=== PATIENT | male | born 1955 | race Caucasian/White ===

== ENCOUNTER 2017-03-03 12:35 | Inpatient (IN) | payer OTHER ==
--- NOTE | 2017-03-03 14:37 | EDPHY ---
H & P Stated Complaint: pathological c3 unstable fx Time Seen by Provider: 03/03/17 13:15 HPI/ROS: CHIEF COMPLAINT: Neck pain, history of metastatic melanoma HISTORY OF PRESENT ILLNESS: The patient presents to the ED with neck pain and a reported history of a fracture diagnosed on MRI earlier today involving his C3 vertebrae. The patient was recently diagnosed with malignant metastatic melanoma. The patient is currently beginning oral chemotherapy with [facility]. Approximately 5 days ago, the patient developed acute atraumatic pain in his neck. He denies associated numbness or weakness. The patient was evaluated at an outpatient imaging center today and reportedly had an MRI which demonstrated a pathologic fracture of C3. He presents to the ED for further evaluation. The patient reports that he has been quite healthy prior to his recent diagnosis of metastatic melanoma. The patient denies any history of trauma. The patient denies bowel or bladder dysfunction. He has no history of gait instability. The patient reports the pain in his neck is moderate in nature. REVIEW OF SYSTEMS: A comprehensive 10 point review of systems is otherwise negative aside from elements mentioned in the history of present illness. Source: Patient - Personal History Current Tetanus/Diphtheria Vaccine: Yes - Medical/Surgical History Hx Asthma: No Hx Chronic Respiratory Disease: No Hx Diabetes: No Hx Cardiac Disease: No Hx Renal Disease: No Hx Cirrhosis: No Hx Alcoholism: No Hx HIV/AIDS: No Hx Splenectomy or Spleen Trauma: No Other PMH: metastatic melanoma - Social History Smoking Status: Former smoker - Physical Exam Exam: General Appearance: Alert, no distress Eyes: Pupils equal and round no pallor or injection ENT, Mouth: Mucous membranes moist Respiratory: There are no retractions, lungs are clear to auscultation Cardiovascular: Regular rate and rhythm Gastrointestinal: Abdomen is soft and nontender, no masses, bowel sounds normal Neurological: A&O, normal motor function, normal sensory exam, normal cranial nerves Skin: Warm and dry, no rashes Musculoskeletal: Neck is supple nontender Extremities: symmetrical, full range of motion Constitutional: Initial Vital Signs Temperature (C) 36.8 C 03/03/17 12:45 Heart Rate 90 03/03/17 12:45 Respiratory Rate 18 03/03/17 12:45 Blood Pressure 105/92 H 03/03/17 12:45 O2 Sat (%) 97 03/03/17 12:45 O2 Delivery Mode Room Air Allergies/Adverse Reactions: No Known Allergies Allergy (Verified 03/03/17 15:03) Home Medications: Medication Instructions Recorded Acetaminophen [Tylenol ES 500 mg 1,000 mg PO Q6 PRN 03/03/17 (*)] Dabrafenib Mesylate [Tafinlar] 150 mg PO Q12H 03/03/17 Fentanyl 12.5 mcg TD Q72H 03/03/17 Fentanyl 37.5 37.5 mcg TD Q72H 03/03/17 Finasteride [Proscar 5 MG (*)] 5 mg PO DAILY 03/03/17 Gabapentin 600 mg PO TID 03/03/17 Mekinist 1 cap PO HS 03/03/17 Prochlorperazine Maleate 10 mg PO Q6H PRN 03/03/17 [Compazine 10mg (*)] diphenhydrAMINE [Benadryl 50 MG 50 mg PO HS 03/03/17 (*)] oxyCODONE IR [Oxycodone Ir (*)] 10 mg PO Q3-4PRN PRN 03/03/17 Medical Decision Making ED Course/Re-evaluation: I reviewed the results of the patient's MRI which demonstrate a pathologic fracture of C3. The patient is noted to be neurologically intact. The patient was placed in a cervical spine immobilization device immediately upon arrival to the ED. Consultation was made with Neurosurgery. The patient will be admitted to the hospital for further evaluation and management. The patient was seen by Dr. Senthil Goel in the emergency department at 3: 00 p.m.. Differential Diagnosis: Differential diagnosis considered includes pathologic fracture, spinal cord injury, worsening metastatic disease Departure - Departure Disposition: [facility] Inpatient Acute Clinical Impression: Metastatic melanoma Pathologic cervical vertebral fracture Qualifiers: Encounter type: initial encounter Qualified Code(s): M84.48XA - Pathological fracture, other site, initial encounter for fracture Condition: Fair
[2017-03-03] MEDS ORDERED: ONDANSETRON 4 MG/2 ML VIAL IVP PRN (15:27)
[2017-03-03] MEDS ORDERED: ONDANSETRON DISINTEGRATING 4 MG TAB PO PRN (15:27)
[2017-03-03] MEDS ORDERED: ACETAMINOPHEN 325 MG TAB PO PRN (15:27)
[2017-03-03] MEDS ORDERED: NS 1,000 ML IV SCH (15:30)
[2017-03-03] MEDS: HYDROCODONE/APAP 5/325 TAB PO PRN (15:41)
[2017-03-03] MEDS ORDERED: FENTANYL TD SCH (15:45)
[2017-03-03] MEDS ORDERED: DABRAFENIB MESYLATE 75 MG PO SCH (15:45)
[2017-03-03] MEDS: GABAPENTIN 300 MG CAP PO SCH ×2 (17:19→21:01)
--- NOTE | 2017-03-03 17:29 | GHP ---
[f rep st] HISTORY AND PHYSICAL DATE OF ADMISSION: 03/03/2017 CHIEF COMPLAINT: Neck pain. HISTORY OF PRESENT ILLNESS: Mr. Gonzales is a pleasant 61-year-old gentleman who presented to [facility] Emergency Department due to severe pain and evidence of a C3 fracture on recent imaging studies. The patient was contacted by Dr. Bobby, who is covering for Dr. Avery, his oncolog ist, when Dr. Bobby was informed of the MRI findings, which was ordered by Dr. Avery. The patient w as instructed to proceed to the emergency department, where he was seen by Dr. Goel today a t approximately 3 p.m. Currently, the patient is reporting intermittent episodes of severe sharp neck pain that occurs with certain movements. The patient states that in October of this year, he developed a cough which did not improve. He follo wed up with his primary care physician in [place] on November 29, also with pain and numbness in his left hip at approximately the iliac crest. The patient was initially treated with gabapentin an d other medications, with no significant improvement of his symptoms. He was then seen again by ot er physicians, including Dermatology, to discuss skin lumps 1st noticed on his right deltoid and rig ht posterior shoulder region. Ultimately, the patient underwent biopsy of these lesions which demon strated cancer cells, and the patient was referred to Oncology, where he underwent further imaging s tudies including CT of the chest, abdomen, and pelvis which demonstrated multiple diffuse lesions co nsistent with multiple myeloma. The patient was complaining of severe neck pain recently, and an MR I of the cervical spine was ordered by Dr. Avery, which revealed probable C3 pathologic fracture. Currently, the patient is neurologically intact. He denies any neck pain, arm pain, weakness, tingl ing, bowel or bladder incontinence, or difficulty with piano mover strength or balance. The patient has been diagnosed with stage IV melanoma and has started oral chemotherapy under the di rection of Dr. Avery. ALLERGIES: No known drug allergies. CURRENT MEDICATIONS: 1. Tylenol 500 mg 2 tabs p.o. q.6 hours p.r.n. 2. Tafinlar 150 mg p.o. q.12. 3. Fentanyl 12.5 mcg transdermal patch q.72 hours. 4. Fentanyl 37.5 mcg transdermal patch q.72 hours. 5. Proscar 5 mg p.o. daily. 6. Gabapentin 600 mg 3 times daily. 7. Mekinist 1 cap p.o. at bedtime. 8. Compazine 10 mg 1 tab p.o. q.6 hours p.r.n. 9. Benadryl 50 mg p.o. at bedtime. 10. OxyIR 10 mg p.o. q.3-4 hours p.r.n. pain. PHYSICAL EXAM: GENERAL: Pleasant, healthy-appearing 61-year-old male in no apparent distress. HEA D, EYES, EARS, NOSE AND THROAT: Within normal limits. EXTREMITIES: Within normal limits. He is w earing a hard Aurora cervical collar. He has mild superior axial neck tenderness to deep palp ation. His extremities are within normal limits. NEUROLOGIC: The patient is awake, alert, and raman ented x4. Cranial nerves 2-12 are intact to gross examination. Speech is fluent. Tongue is midlin e. Spinal accessory muscles are intact. He has equal and symmetric strength of the bilateral upper and lower extremities in all muscle groups, with sensation intact to light touch in all dermatomal distributions of the bilateral upper and lower extremities. There is no Dominguez sign and no clonus. Reflexes are 1/4 at bilateral biceps, brachial radialis, and patellar tendons. PAST MEDICAL HISTORY: Left leg fracture in 2015. PAST SURGICAL HISTORY: No surgeries. SOCIAL HISTORY: The patient is single but has a domestic partner. He quit smoking 5 years ago. He drinks alcohol approximately once a month. REVIEW OF SYSTEMS: Negative, other than what is mentioned in the HPI. DATA REVIEW: MRI of the cervical spine demonstrates a C3 fracture. This contributes to moderate to severe central canal stenosis at the C2 level. There is no gliosis in the cord. There is mild to moderate degenerative disk disease at C5-6 and C6-7, with Modic changes of the endplates and mild to moderate central canal stenosis at C5-6, with moderate to severe bilateral neural foraminal stenosi s at C5-6, and mild central canal stenosis at C6-7, with mild bilateral neural foraminal stenosis bi laterally at C6-7. IMPRESSION: This is a 61-year-old male with recently diagnosed stage IV metastatic melanoma and a C 3 pathologic compression fracture causing moderate to severe central canal stenosis. Currently, the patient is neurologically intact, with intermittent episodes of severe neck pain. PLAN: All the above issues were discussed with the patient in detail today with Dr. Amando donahue t approximately 3 p.m. At this time, we recommend the patient be maintained in a hard cervical tariq ar. He may have a regular diet now, but will be made n.p.o. after midnight, with plans for him to u [facility] surgery tomorrow afternoon with Dr. Goel. The surgery would include a C3 anterior c orpectomy and a C2-4 anterior cervical fusion, followed by a C2-4 posterior instrumentation and fusi on. /[id number]/MODL
[2017-03-03 18:23] LABS: ALANINE AMINOTRANSFERASE 39 IU/L (21-72); ALBUMIN 3.5 g/dL (3.5-5.0); ALKALINE PHOSPHATASE 155 IU/L (38-126); ANION GAP 10 mEq/L (8-16); ASPARTATE AMINOTRANSFERASE 22 IU/L (17-59); BILIRUBIN,TOTAL 0.4 mg/dL (0.1-1.4); CALCIUM 8.5 mg/dL (8.5-10.4); CARBON DIOXIDE 21 mEq/l (22-31); CHLORIDE 104 mEq/L (97-110); CREATININE 0.9 mg/dL (0.7-1.3); GLOMERULAR FILTRATION RATE > 60; GLUCOSE 97 mg/dL (70-100); POTASSIUM 4.8 mEq/L (3.5-5.2); SODIUM 135 mEq/L (134-144); TOTAL PROTEIN 6.5 g/dL (6.3-8.2)
[2017-03-03] MEDS: OXYCODONE/APAP 5/325 TAB PO PRN (20:46)
[2017-03-03] MEDS ORDERED: MEKINIST PO SCH (21:00)
[2017-03-03] MEDS: diphenhydrAMINE 25 MG CAP PO PRN (21:01)
[2017-03-03] MEDS: TRAMETINIB DIMETHYL SULFOXIDE 2 MG PO SCH (22:39)
[2017-03-03] MEDS: DABRAFENIB MESYLATE 75 MG PO SCH (22:41)
[2017-03-04] MEDS: OXYCODONE/APAP 5/325 TAB PO PRN ×4 (00:48→21:41)
[2017-03-04 07:05] LABS: HEMATOCRIT 31.7 % (40.0-51.0); HEMOGLOBIN 10.4 g/dL (13.7-17.5); MEAN CELL HEMOGLOBIN 28.8 pg (27.9-34.1); MEAN CELL HEMOGLOBIN CONCENTR. 32.8 g/dL (32.4-36.7); MEAN CELL VOLUME 87.8 fL (81.5-99.8); RED BLOOD CELL COUNT 3.61 10^6/uL (4.40-6.38); RED CELL DISTRIBUTION WIDTH 13.9 % (11.5-15.2)
[2017-03-04 07:13] LABS: INR 1.13 (0.83-1.16); PROTIME(PATIENT) 14.4 SEC (12.0-15.0)
--- NOTE | 2017-03-04 07:33 | PDHPUP ---
History & Physical Update H&P update statement: This history and physical update is based on an assessment of the patient which was completed after admission or registration (within 24 hours), but prior to the surgery/procedure. H&P update: H&P reviewed & patient examined, no change in patient's condition since H&P completed
--- NOTE | 2017-03-04 07:38 | SOAPPROG ---
SOAP Progress Note Assessment/Plan: Assessment: 61 yo M with C3 pathological fracture Plan: neuro: stable to OR this afternoon for C3 corpectomy, C2-4 anterior/posterior fusion npo please call with neuro changes keep hard collar on at all times 03/04/17 07:37 Subjective: + neck pain, no arm pain, no weakness. Objective: Vital Signs Temp Pulse Resp BP Pulse Ox 36.6 C 75 15 148/89 H 94 03/04/17 04:00 03/04/17 04:00 03/04/17 04:00 03/04/17 04:00 03/04/17 04:00 Laboratory Results 03/04/17 06:40 03/03/17 17:36 03/03/17 03/04/17 03/05/17 05:59 05:59 05:59 Intake Total 500 Output Total 400 Balance 100 PT 14.4 SEC (12.0-15.0) 03/04/17 06:40 INR 1.13 (0.83-1.16) 03/04/17 06:40 AAOx4, +FC PERRL, no facial droop 5/5 + light touch ICD10 Worksheet Patient Problems: Problems Problem Status Onset Metastatic melanoma Acute Pathologic cervical vertebral fracture Acute
[2017-03-04] MEDS: GABAPENTIN 300 MG CAP PO SCH ×3 (08:33→21:19)
[2017-03-04] MEDS ORDERED: FINASTERIDE 5 MG TAB PO SCH (09:00)
--- NOTE | 2017-03-04 09:08 | CPEKG ---
Heart Rate: 82 RR Interval: 732 P-R Interval: 176 QRSD Interval: 82 QT Interval: 360 QTC Interval: 421 P [place]: 56 QRS [place]: 14 T Wave [place]: 41 EKG Severity - OTHERWISE NORMAL ECG - EKG Impression: SINUS RHYTHM EKG Impression: LOW VOLTAGE IN FRONTAL LEADS EKG Impression: Some artifact EKG Impression: Possible left atrial abnormality EKG Impression: Agree with above Electronically Signed By: Jesus Ramirez 04-Mar-2017 16:13:53
[2017-03-04] MEDS: DABRAFENIB MESYLATE 75 MG PO SCH (10:26)
[2017-03-04] MEDS ORDERED: ceFAZolin 2 GM/DEXTROSE 100 ML IV ONE (11:00)
[2017-03-04] MEDS ORDERED: THROMBIN (BOVINE) 20,000 UNIT VIAL TP ONE (11:05)
[2017-03-04] MEDS ORDERED: BUPIVACAINE/EPI 0.25% 30 ML SDV ONE ×2 (11:05→12:21)
[2017-03-04] MEDS ORDERED: BACITRACIN 50,000 UNITS/10 ML SYR IRR ONE ×2 (11:05→11:06)
[2017-03-04] MEDS ORDERED: LR 1,000 ML IV ONE (11:44)
--- NOTE | 2017-03-04 11:48 | PDANEPAE ---
ANE History of Present Illness C3 Corpectomy, Anterior and posterior fusion ANE Past Medical History - Cardiovascular History Hx Hypertension: No Hx Arrhythmias: No Hx Chest Pain: No Hx Coronary Artery / Peripheral Vascular Disease: No Hx CHF / Valvular Disease: No Hx Palpitations: No - Pulmonary History Hx COPD: No Hx Asthma/Reactive Airway Disease: No Hx Recent Upper Respiratory Infection: No Hx Oxygen in Use at Home: No Hx Sleep Apnea: No Sleep Apnea Screening Result - Last Documented: Positive - Endocrine History Hx Diabetes: No Hypothyroid: No Hyperthyroid: No Obesity: no - Cancer History Hx Cancer: Yes Cancer History Comment: Melanoma witjh distant mets - Chronic Pain History Chronic Pain: Yes ANE Review of Systems - Exercise capacity Exercise capacity: limited by disability ANE Patient History - Allergies Allergies/Adverse Reactions: No Known Allergies Allergy (Verified 03/03/17 15:03) - Home Medications Home Medications: Acetaminophen [Tylenol ES 500 mg (*)] 1,000 mg PO Q6 PRN 03/03/17 [Last Taken 09:00 1000MG] Dabrafenib Mesylate [Tafinlar] 150 mg PO Q12H 03/03/17 [Last Taken 03/03/17 150mg] Fentanyl 12.5 mcg TD Q72H 03/03/17 [Last Taken 03/02/17] Fentanyl 37.5 37.5 mcg TD Q72H 03/03/17 [Last Taken 03/02/17] Finasteride [Proscar 5 MG (*)] 5 mg PO DAILY 03/03/17 [Last Taken 03/03/17] Gabapentin 600 mg PO TID 03/03/17 [Last Taken 03/03/17 1 tab] Prochlorperazine Maleate [Compazine 10mg (*)] 10 mg PO Q6H PRN 03/03/17 [Last Taken 03/03/17 1 TB] Trametinib Dimethyl Sulfoxide [Mekinist] 2 mg PO DAILY@2230 03/03/17 [Last Taken 03/02/17 1 cap] diphenhydrAMINE [Benadryl 50 MG (*)] 50 mg PO HS 03/03/17 [Last Taken 03/02/17] oxyCODONE IR [Oxycodone Ir (*)] 10 mg PO Q3-4PRN PRN 03/03/17 [Last Taken 09:00 20mg] - NPO status NPO Since - Liquids (Date): 03/04/17 NPO Since - Liquids (Time): 00:00 NPO Since - Solids (Date): 03/04/17 NPO Since - Solids (Time): 00:00 - Anes Hx Anes Hx: no prior problems - Smoking Hx Smoking Status: Former smoker - Alcohol Use Alcohol Use: Rarely - Family Anes Hx Family Anes Hx: none ANE Labs/Vital Signs - Labs Result Diagrams: 03/04/17 06:40 03/03/17 17:36 - Vital Signs Blood Pressure: 142/84 Heart Rate: 83 Respiratory Rate: 16 O2 Sat (%): 95 Height: 175.26 cm Weight: 70.307 kg ANE Physical Exam - Airway Neck exam: decreased ROM, C-collar in place Mallampati Score: Class 2 Mouth exam: normal dental/mouth exam - Pulmonary Pulmonary: no respiratory distress - Cardiovascular Cardiovascular: regular rate and rhythym, no murmur, rub, or gallop - ASA Status ASA Status: III ANE Anesthesia Plan Anesthesia Plan: general endotracheal anesthesia Specialized Airway: video laryngoscope
[2017-03-04] MEDS ORDERED: MIDAZOLAM 2 MG/2 ML VIAL IVP ONE (11:50)
[2017-03-04] MEDS ORDERED: PROPOFOL 200 MG/20 ML VIAL ONE (11:57)
[2017-03-04] MEDS ORDERED: fentaNYL 100 MCG/2 ML INJ ONE ×6 (11:57→17:43)
[2017-03-04] MEDS ORDERED: PROPOFOL/EMULSION 500 MG/50 ML BOTTLE IV ONE ×3 (11:59→14:59)
[2017-03-04] MEDS ORDERED: BUPIVACAINE 0.25% 30 ML SDV ONE (12:21)
[2017-03-04] MEDS ORDERED: TRANEXAMIC ACID 700 MG in NS 100 ML IV ONE (12:37)
[2017-03-04] MEDS ORDERED: KETAMINE 100 MG/10 ML SYR ONE (13:10)
[2017-03-04] MEDS ORDERED: GLYCOPYRROLATE 0.2 MG/1 ML VIAL ONE (13:17)
[2017-03-04] MEDS ORDERED: DEXAMETHASONE 4 MG/ML VIAL ONE ×3 (13:17)
[2017-03-04] MEDS ORDERED: SUCCINYLCHOLINE CHLORIDE*ANESTHESIA ONLY*200 MG/10 ML SYR IVP ONE (13:17)
[2017-03-04] MEDS ORDERED: ROCURONIUM 50 MG/5 ML VIAL ONE (13:17)
[2017-03-04] MEDS ORDERED: LIDOCAINE 2% 5 ML SDV ONE (13:21)
[2017-03-04] MEDS ORDERED: HYDROmorphONE/DILAUDID 2 MG/ML INJ ONE (13:23)
[2017-03-04] MEDS ORDERED: ceFAZolin 1 GM VIAL ONE (16:14)
[2017-03-04] MEDS ORDERED: METHOCARBAMOL 750 MG TAB PO PRN (17:39)
[2017-03-04] MEDS ORDERED: BISACODYL 10 MG SUPP PR PRN (17:39)
[2017-03-04] MEDS ORDERED: MAGNESIUM HYDROXIDE 30 ML UDCUP PO PRN (17:39)
[2017-03-04] MEDS ORDERED: NALOXONE HCL 0.4 MG/ML INJ IVP PRN (17:39)
[2017-03-04] MEDS ORDERED: LACTULOSE 20 GM/30 ML UDCUP PO PRN (17:39)
[2017-03-04] MEDS ORDERED: HYDROmorphONE/DILAUDID 6 MG/30 ML PCA IV PRN (17:39)
[2017-03-04] MEDS ORDERED: oxyCODONE IR 5 MG TAB PO PRN (17:39)
--- NOTE | 2017-03-04 17:46 | SOAPPROG ---
CORWIN Progress Note Assessment/Plan: Assessment: 61 yo M w/ C3 pathological fracture, sp C3 corpectomy with C2-4 anterior/posterior fusion Plan: neuro: stable KEL x2 [place] ira J or phili collar at all times x-rays tomorrow please call with neuro changes 03/04/17 07:37 03/04/17 17:44 Subjective: + neck pain, no arm pain. Objective: Vital Signs Temp Pulse Resp BP Pulse Ox 36.9 C 83 16 142/84 H 95 03/04/17 08:03 03/04/17 11:49 03/04/17 11:49 03/04/17 11:49 03/04/17 11:49 Laboratory Results 03/04/17 06:40 03/03/17 17:36 03/03/17 03/04/17 03/05/17 05:59 05:59 05:59 Intake Total 500 Output Total 400 Balance 100 PT 14.4 SEC (12.0-15.0) 03/04/17 06:40 INR 1.13 (0.83-1.16) 03/04/17 06:40 somnolent PERRL, EOMI, no facial droop 5/5 + light touch ICD10 Worksheet Patient Problems: Problems Problem Status Onset Metastatic melanoma Acute Pathologic cervical vertebral fracture Acute
[2017-03-04] MEDS ORDERED: HYDROmorphONE/DILAUDID 1 MG/ML SYR ONE (17:58)
[2017-03-04] MEDS ORDERED: DIAZEPAM 10 MG/2 ML SYR ONE (17:58)
[2017-03-04] MEDS ORDERED: fentaNYL 100 MCG/2 ML INJ IVP PRN (17:59)
[2017-03-04] MEDS ORDERED: PROMETHAZINE HCL 25 MG/ML INJ IVP PRN (17:59)
[2017-03-04] MEDS: HYDROmorphONE/DILAUDID 1 MG/ML SYR IVP PRN ×3 (18:00→18:23)
[2017-03-04] MEDS ORDERED: DIAZEPAM 10 MG/2 ML SYR IVP PRN (18:02)
[2017-03-04] MEDS ORDERED: FAMOTIDINE 20 MG TAB PO SCH (21:00)
[2017-03-04] MEDS: ceFAZolin 2 GM/DEXTROSE 100 ML IV SCH (21:19)
[2017-03-04] MEDS: FINASTERIDE 5 MG TAB PO SCH (21:19)
[2017-03-04] MEDS: SENNOSIDES/DOCUSATE SODIUM TAB PO SCH (21:49)
[2017-03-05] MEDS: POLYETHYLENE GLYCOL 3350 17 GM PKT PO SCH ×4 (00:26→21:51)
[2017-03-05] MEDS: DABRAFENIB MESYLATE 75 MG PO SCH ×3 (00:29→22:33)
[2017-03-05] MEDS: TRAMETINIB DIMETHYL SULFOXIDE 2 MG PO SCH ×2 (00:32→22:35)
[2017-03-05] MEDS: diphenhydrAMINE 25 MG CAP PO PRN ×2 (02:12→23:34)
[2017-03-05] MEDS: OXYCODONE/APAP 5/325 TAB PO PRN ×5 (02:14→19:34)
--- NOTE | 2017-03-05 03:33 | GOP ---
[f rep st] OPERATIVE REPORT DATE OF OPERATION: 03/04/2017 SURGEON: Senthil Goel MD PACKER FUSER: MARY Romero. ANESTHESIA: General endotracheal. PREOPERATIVE DIAGNOSIS: Unstable C3 pathologic compression fracture with retropulsion of bone into the canal, and spinal stenosis. Intractable pain. POSTOPERATIVE DIAGNOSIS: Unstable C3 pathologic compression fracture with retropulsion of bone into the canal, and spinal stenosis. Intractable pain. PROCEDURE PERFORMED: 1. C2-3 and C3-4 anterior cervical diskectomy, with C3 complete corpectomy for removal of tumor/unstable vertebral body fracture. 2. Placement of a structural PEEK interbody spacer from C2 to C4. 3. Placement of an LnK CastleLoc-P, 41 mm anterior cervical plate and screws from C2 to C4. 4. Use of intraoperative microscopy and fluoroscopy. FINDINGS: ESTIMATED BLOOD LOSS: 150 cc. INDICATIONS: The patient is a 61-year-old male with a history of stage IV metastatic melanoma and a pathologic fracture at C3 with retropulsion of bone and an unstable situation. The patient has associated pain and presents now for decompression/resection and removal with stabilization anteriorly and posteriorly. DESCRIPTION OF PROCEDURE: After informed consent was obtained, the patient was taken to the operating room and placed in supine position with the head in the Halter retractor system. The anterior cervical region was prepped and draped in sterile fashion. After fluoroscopic localization of the correct level, the subcutaneous and intramuscular tissues were infiltrated with local anesthesia. A horizontal linear incision was then created at the level of the C4 vertebral body. This was carried through the platysmal layer using monopolar electrocautery and carried in the avascular plane between the sternocleidomastoid and the carotid sheath laterally, and the strap muscles, trachea, and esophagus medially down to the prevertebral fascia, which was carefully incised with Metzenbaum scissors. The C2-3 and C3-4 interspaces were very carefully and meticulously dissected out and in doing so, there was bone already falling out of C3 without even attempting to remove it. There was a gaping hole in the vertebral body, consistent with the preoperative radiographic findings. After further dissection and placement of the minimally invasive Shadowline retractor, distraction pins were inserted at C2 and C4, and complete diskectomies were performed at C2-3 and C3-4 with subsequent removal of the entire vertebral body at C3. There was quite a bit of epidural bleeding that was controlled with meticulous dissection and bipolar electrocauterization along with Gelfoam soaked in thrombin, which was then removed. Following this, the remaining endplates were carefully prepared and an appropriately sized 28 mm structural PEEK interbody cage from [employer] was packed with demineralized bone matrix and placed in the interspace under fluoroscopic image guidance. The distraction was removed and an appropriately sized 41 mm CastleLoc-P, LnK anterior cervical plate was then placed and secured with self-drilling screws. Following re-verification of good position of the plate, screws and interbody spacers, the wound was copiously irrigated and closed in a layered fashion using interrupted Vicryl sutures followed by Steri-Strips on the skin. COMPLICATIONS: None. DISPOSITION: The patient remained intubated and is in the process of being repositioned for the posterior portion of the operation. /[id number]/MODL MTDD
--- NOTE | 2017-03-05 03:43 | GOP ---
[f rep st] OPERATIVE REPORT DATE OF OPERATION: SURGEON: Senthil Goel MD PET AMBASSADOR: MARY Romero. ANESTHESIA: General endotracheal. PREOPERATIVE DIAGNOSIS: Unstable C3 pathologic compression fracture with retropulsion of bone into the canal, and spinal stenosis. Intractable pain. POSTOPERATIVE DIAGNOSIS: Unstable C3 pathologic compression fracture with retropulsion of bone into the canal, and spinal stenosis. Intractable pain. PROCEDURE PERFORMED: 1. C2 through C4 posterior segmental (pedicle screw and lateral mass screw) fixation and posterolat eral fusion with local autograft, morselized allograft and demineralized bone matrix. 2. Use of intraoperative microscopy and fluoroscopy, and computer volumetric stereotactic navigatio n with intraoperative neurophysiologic testing. FINDINGS: ESTIMATED BLOOD LOSS: 100 cc. INDICATIONS: The patient is a 61-year-old male with a history of stage IV metastatic melanoma and p athologic fracture at C3 with retropulsion of bone, and an unstable situation. The patient has asso ciated pain and presents now for decompression/resection and removal with stabilization, anteriorly and posteriorly. DESCRIPTION OF PROCEDURE: After the anterior portion of the procedure was completed, the patient wa s repositioned prone on the Toby table with the radiolucent Cowdrey head stock operator. The posterior cervical and suboccipital areas were prepped and draped in a sterile fashion. After fluoroscopic lo calization of the correct levels, the subcutaneous and intramuscular tissues were infiltrated with l ocal anesthesia. A midline linear incision was then created from approximately C2 to C4. This was carried down to the fascial layer, which was then incised using monopolar electrocautery and carried in a subperiosteal plane along the spinous processes and the lamina bilaterally. Intraoperative fl uoroscopy was again utilized to verify the correct level. Following this, the dissection was juanita d out over the facet joints and lateral masses, which were carefully exposed. A 3.5 x 12 mm screw w as then placed at C4 and C3. The O-arm Neuronavigational system was then brought in and 3-D reconst ructed images obtained. Using computer volumetric stereotactic navigation, pedicle screws were plac ed at C2. Each individual screw was tested neurophysiologically using monopolar electrostimulation and interpretation of the potentials by the surgeon. Following this, the remaining lateral masses w ere extensively decorticated and the residual local autograft from the drilling along with demineral ized bone matrix and morselized allograft was placed out laterally for posterolateral fusion from C2 to C4. A drain was then placed, and the wound was closed in a layered fashion using interrupted Vi cryl sutures followed by Steri-Strips on the skin after re-infiltration of the subcutaneous and intr amuscular tissues with local anesthesia. COMPLICATIONS: None. DISPOSITION: The patient is currently in the process of being repositioned for extubation. /[id number]/MODL
[2017-03-05] MEDS: ceFAZolin 2 GM/DEXTROSE 100 ML IV SCH (04:52)
[2017-03-05 05:05] LABS: % IMMATURE GRANULYOCYTES 0.6 % (0.0-1.1); ABSOLUTE IMMATURE GRANULOCYTES 0.06 10^3/uL (0.00-0.10); ADD DIFF? NO; ADD MORPH? NO; ADD SCAN? NO; ATYPICAL LYMPHOCYTE FLAG 0 (0-99); FRAGMENT RBC FLAG 10 (0-99); HEMATOCRIT 28.8 % (40.0-51.0); HEMOGLOBIN 9.4 g/dL (13.7-17.5); LEFT SHIFT FLG 0 (0-99); LIPEMIA HEMOLYSIS FLAG 80 (0-99); MEAN CELL HEMOGLOBIN CONCENTR. 32.6 g/dL (32.4-36.7); MEAN CELL VOLUME 88.9 fL (81.5-99.8); MEAN PLATELET VOLUME 8.4 fL (8.7-11.7); PLATELET CLUMPS FLAG 0 (0-99); PLATELET COUNT 450 10^3/uL (150-400); RED BLOOD CELL COUNT 3.24 10^6/uL (4.40-6.38); RED CELL DISTRIBUTION WIDTH 13.7 % (11.5-15.2)
[2017-03-05 05:23] LABS: ANION GAP 10 mEq/L (8-16); CALCIUM 8.2 mg/dL (8.5-10.4); CARBON DIOXIDE 18 mEq/l (22-31); CHLORIDE 108 mEq/L (97-110); CREATININE 0.8 mg/dL (0.7-1.3); GLOMERULAR FILTRATION RATE > 60; GLUCOSE 126 mg/dL (70-100); POTASSIUM 4.8 mEq/L (3.5-5.2); SODIUM 136 mEq/L (134-144)
--- NOTE | 2017-03-05 07:35 | SOAPPROG ---
SOAP Progress Note Assessment/Plan: Assessment: 61 yo male POD #1 s/p C3 corpectomy and C2-4 ACDF with C2-4 posterior fusion Doing well this AM. Pain well controlled. Neuro intact Plan: Continue KEL drains x 2 to bulb suction Continue hard collar ok to transfer to floor PT/OT/ST Soft texture diet Discussed with Dr. Pagan Subjective: awake, alert, states "I'm doing ok" Pain well controlled denies numbness, tingling or weakness Objective: Vital Signs Temp Pulse Resp BP Pulse Ox 36.6 C 84 13 128/72 H 97 03/04/17 18:26 03/05/17 06:00 03/05/17 06:00 03/05/17 06:00 03/05/17 06:00 Laboratory Results 03/05/17 04:45 03/05/17 04:45 03/04/17 03/05/17 03/06/17 05:59 05:59 05:59 Intake Total 500 3600 Output Total 400 3070 Balance 100 530 PT 14.4 SEC (12.0-15.0) 03/04/17 06:40 INR 1.13 (0.83-1.16) 03/04/17 06:40 Neuro: VUONG, sens+LT follows commands swallowing fine currently Dressing x 2 CDI ANT KEL:90ml POST KEL: 80ml ICD10 Worksheet Patient Problems: Problems Problem Status Onset Metastatic melanoma Acute Pathologic cervical vertebral fracture Acute
[2017-03-05] MEDS ORDERED: fentaNYL 50 MCG PATCH TD SCH (08:00)
[2017-03-05] MEDS: GABAPENTIN 300 MG CAP PO SCH ×3 (09:02→21:50)
[2017-03-05] MEDS: SENNOSIDES/DOCUSATE SODIUM TAB PO SCH ×2 (09:12→21:50)
[2017-03-05] MEDS: HYDROCODONE/APAP 5/325 TAB PO PRN (10:46)
--- NOTE | 2017-03-05 14:10 | POSTANESTH ---
Post Anesthetic Evaluation Cardiovascular Status: Normal, Stable Respiratory Status: Normal, Stable Level of Consciousness/Mental Status: Can Participate in Eval Pain Control: Adequate, Prn Tx Ordered Nausea/Vomiting Control: Adequate, Prn Tx Ordered Complications Possibly Related to Anesthesia: None Noted
[2017-03-05] MEDS: FINASTERIDE 5 MG TAB PO SCH (21:50)
--- NOTE | 2017-03-05 22:36 | GCON ---
[f rep st] CONSULTATION NEW PATIENT CONSULTATION REASON FOR CONSULTATION: Patient known to Dr. 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 He presented with a C3 pathologic compression fracture causing [id number] central canal stenosis. The patient is a very pleasant 61-year-old gentleman. His history is as follows: Presented in [place] with a cough, also had some left-sided numbness and pain radiating down his left pelvic brim for a number of months. He saw Neurology. MRI, thoracic spine, was done which showed numerous osseous l esions throughout the thoracic spine which were T1 hypointense and IR hypointense, worrisome for wid espread osseous mets. Manager [employer] abnormalities included 9 mm anterior T4 vertebral body, 15 mm expansile lesion in right T6, and adjacent 9 mm lesion in posterior right T6. Further osseous lesio ns were described. He had noticed some subcutaneous nodules developing over his skin. Pain had bee n poorly controlled. He had an enlarging mass in the right adrenal gland and several mediastinal ly mph nodes as well as subcarinal nodes and right lower lobe lesion. He had a biopsy of one of the sk in nodules on upper back which showed epithelioid cells with high mitotic index stain positive for S 100 and melanin A. He was negative for HMB45, CK7, CK20, TTF1, p68, and p63, felt to be consistent with metastatic melanoma. CT of chest showed a 4.6 left hilar mass that encased and partially occlu ded several left upper and lower lobe bronchi. Extensive mediastinal adenopathy. He also has liver mets, right adrenal gland mets, and mets to the bone, muscle, and subcutaneous fat. MRI of the bra in shows 4 or 5 relatively small brain mets with some surrounding edema. MRI of the spine showed 8 mm enhancing nodule in lower thoracic spinal cord, T12-L1; dominant lesions noted in T4 to T10 and T 12. Pain has been under better control on fentanyl patch, p.r.n. Percocet, and gabapentin. BRAF mu tation V600E came back positive. Patient was originally given 1 treatment of pembrolizumab, but disease actually started to worsen, a nd after V600E mutation was discovered, he was switched to trametinib and dabrafenib which he starte d February 26, 2017. Unfortunately, he has had a rapid response in subcutaneous nodules, quite impressiv e. Patient reports that on February 21, he started to experience neck pain. This went on for several days u ntil, finally, an MRI of the C-spine was ordered and unfortunately showed a C3 fracture. He was adv ised to go to the emergency department on Wednesday. Today, he is postop day #1 status post C3 corpectomy and C2 to C4 ACDF with C2 to C4 posterior fusio n. He is doing remarkably well. He denies any new problems today. CURRENT MEDICATIONS: Have been reviewed in EMR. FAMILY HISTORY: Noted. PAST MEDICAL HISTORY: Leg fracture in 2017. SURGICAL HISTORY: Nose surgery. SOCIAL HISTORY: Domestic partners. Quit smoking 5 years ago. Social alcohol use. REVIEW OF SYSTEMS: Otherwise mentioned in history of present illness. LABORATORY DATA: Today shows white blood cell count of 10.4, hemoglobin 9.4, hematocrit 28.8, plate let count of 450,000. INR was 1.1. His LFTs are relatively unremarkable. He did have an elevated alkaline phosphatase at 155. PHYSICAL EXAMINATION: VITAL SIGNS: Blood pressure 127/68, pulse of 97, respiration rate 14, satura ting 97% on room air. Temp is 36.8. GENERAL: Middle-aged man, not in acute distress. He is weari ng a neck brace. HEENT: Anicteric. HEART: Regular rate and rhythm. LUNGS: Clear. ABDOMEN: So ft, nontender. LOWER EXTREMITIES: No edema. NEUROLOGIC: Moving all extremities. He denies numbn ess. ASSESSMENT AND PLAN: A 61-year-old gentleman with M1c or stage IV cutaneous melanoma, BRAF V600E mu tated who presented with neck pain, discovered to have a C3 unstable fracture. 1. CT3 unstable fracture, postop day #1 of C3 corpectomy and fusion. Pain well controlled. Doing well from a neurologic standpoint. Continue PT, OT and follow Neurosurgery directions for advanceme nt of activity. 2. Stage IV melanoma. Continue on trametinib and dabrafenib. So far, he is tolerating this well w ith minimal toxicity. Will need followup with Dr. Avery in the next week, and I would consider scan s in the next 6 weeks to assess response, although clinically, he is responding. We will continue to follow along in the hospital. /[id number]/MODL
[2017-03-06] MEDS: OXYCODONE/APAP 5/325 TAB PO PRN ×4 (04:14→16:59)
[2017-03-06] MEDS: GABAPENTIN 300 MG CAP PO SCH ×2 (08:17→15:41)
[2017-03-06] MEDS: POLYETHYLENE GLYCOL 3350 17 GM PKT PO SCH ×2 (08:17→15:42)
[2017-03-06] MEDS: SENNOSIDES/DOCUSATE SODIUM TAB PO SCH (08:17)
--- NOTE | 2017-03-06 11:13 | NEUSURGPN ---
Date of Surgery: 03/03/17 Post Op Day: 3 Assessment/Plan: SOAP Progress Note Assessment/Plan: Assessment: 61 yo male POD #3 s/p C3 corpectomy and C2-4 ACDF with C2-4 posterior fusion Doing well this AM. Pain well controlled. ready for dispo lillian Neuro intact Plan: Continue KEL drains x 2 to bulb suction for now, may pull one or both drains before DC if cleared later today ok to transfer to floor Patient to wear [place] J collar at all times 15/03 with sponge baths x 1 week ( until 03/12/17), then may use Dulce collar after that to shower PT/OT/ST Soft texture diet Discussed with Dr. Pagan Subjective: Pain well controlled. denies numbness, tingling or weakness. tolerating collar well. Many questions today about dispo. Objective: NAD VSS AAOx3 MAEx4, 12/25= BLE&BUE +LT incisions dressed, dressings cdi JPx2 with serosanguineous fluid 35ant bulb, 100posterior bulb - Physician Discussed Patient with DrNanette: [facility] Physical Exam - Vitals, I&O, Labs I and O 03/05/17 03/06/17 03/07/17 05:59 05:59 05:59 Intake Total 3600 900 Output Total 3070 585 Balance 530 315 Weight 70.307 kg Intake: Oral (ml) 750 900 IV Intake (ml) 1900 IV Infused (ml) 950 Ns 1,000 ml @ 100 mls/hr 950 IV CONT JONATHAN Rx#: [id number] Output: Urine (ml) 2600 450 Catheter 1700 450 Toilet 900 Estimated Blood Loss (ml) 300 KEL Drain Output (ml) 170 135 Left Anterior Neck 90 35 Toby Mc Left Posterior Neck 80 100 Toby Mc Other: Intake Quantity Yes Sufficient Number of Voids Toilet 2 Vital Signs Temp Pulse Resp BP Pulse Ox 36.5 C 97 16 145/89 H 97 03/06/17 08:05 03/06/17 08:05 03/06/17 08:05 03/06/17 08:05 03/06/17 08:05 Laboratory Results 03/05/17 04:45 03/05/17 04:45 ICD10 Worksheet Patient Problems: Problems Problem Status Onset Metastatic melanoma Acute Pathologic cervical vertebral fracture Acute
[2017-03-06] MEDS: DABRAFENIB MESYLATE 75 MG PO SCH (11:32)
[2017-03-06 11:51] VITALS: RESP 14
--- NOTE | 2017-03-06 15:22 | SOAPPROG ---
SOAP Progress Note Assessment/Plan: E&M for Melanoma * Melanoma with mets; BRAF+: on dabrafenib and tremetinib with objective signs of response and no side effects thus far. Continue with meds. When cleared by surgery, no oncologic contraindication to going home. * C3 pathologic fracture s/p C3 corpectomy and C2-4 ACDF with C2-4 posterior fusion: post op care per neurosurgery; POD#3; Pain well controlled. He is to wear [place] J collar at all times. Subjective: Feeling well without new complaints. One drain pulled and other in place. Wants to go home. Objective: Vital Signs Temp Pulse Resp BP Pulse Ox 36.5 C 90 14 111/70 95 03/06/17 11:50 03/06/17 11:50 03/06/17 11:50 03/06/17 11:50 03/06/17 11:50 Laboratory Results 03/05/17 04:45 03/05/17 04:45 03/05/17 03/06/17 03/07/17 05:59 05:59 05:59 Intake Total 3600 900 Output Total 3070 585 5 Balance 530 315 -5 PT 14.4 SEC (12.0-15.0) 03/04/17 06:40 INR 1.13 (0.83-1.16) 03/04/17 06:40 Physical Exam - Physical Exam General Appearance: no apparent distress Neck: other (In collar. Drain with serosanguinous fluid) Neuro/Psych: no motor/sensory deficits, other ICD10 Worksheet Patient Problems: Problems Problem Status Onset Metastatic melanoma Acute Pathologic cervical vertebral fracture Acute
[2017-03-06 15:42] VITALS: BP 131/83; PULSE 96; TEMP 98.3; O2SAT 93
[2017-03-07] MEDS ORDERED: ENOXAPARIN 40 MG/0.4 ML SYR SC SCH (09:00)
== END 2017-03-06 18:03 | disposition home or self-care (01) | DRG 454 ==
LOC: OBSVTOIN 15:27 → F3N 15:54 → F2N 03-04 14:59 → F3N 03-05 17:32
PROVIDERS: ADMIT Neurological Surgery; ATTEND Neurological Surgery
PROC: 0RG20A0 Fusion of 2 or more Cervical Vertebral Joints with Interbody Fusion Device, Anterior Approach, Anterior Column, Open Approach (ICD-10-PCS; principal; 2017-03-04 12:30)
PROC: 0PB30ZZ Excision of Cervical Vertebra, Open Approach (ICD-10-PCS; principal; 2017-03-04 12:30)
PROC: 0RG20K1 Fusion of 2 or more Cervical Vertebral Joints with Nonautologous Tissue Substitute, Posterior Approach, Posterior Column, Open Approach (ICD-10-PCS; principal; 2017-03-04 12:30)
PROC: 0RT30ZZ Resection of Cervical Vertebral Disc, Open Approach (ICD-10-PCS; principal; 2017-03-04 12:30)
PROC: 3E0U0GB Introduction of Recombinant Bone Morphogenetic Protein into Joints, Open Approach (ICD-10-PCS; principal; 2017-03-04 12:30)
DX: M84.58XA Pathological fracture in neoplastic disease, other specified site, initial encounter for fracture (principal); M48.02 Spinal stenosis, cervical region; C43.61 Malignant melanoma of right upper limb, including shoulder; C78.7 Secondary malignant neoplasm of liver and intrahepatic bile duct; C79.70 Secondary malignant neoplasm of unspecified adrenal gland; C79.51 Secondary malignant neoplasm of bone; C79.89 Secondary malignant neoplasm of other specified sites; Z87.891 Personal history of nicotine dependence
CPT/HCPCS: 97116-GP; 97161-GP; 97166-GO; 97535-GO; C1713; C1762; G8978-GP-CH; G8979-GP-CH; J0330; J0690; J1100; J1170; J2250; J2704; J3010

== ENCOUNTER 2017-03-12 19:19 | Emergency (ER) | payer OTHER ==
[2017-03-12] MEDS ORDERED: NS 1,000 ML IV ONE (19:46)
--- NOTE | 2017-03-12 19:46 | EDPHY ---
H & P Stated Complaint: fever hx melanoma and recent neck fusion seen today in office HPI/ROS: HPI CHIEF COMPLAINT: Fever HISTORY OF PRESENT ILLNESS: This patient is 61-year-old male, significant past medical history for melanoma,, he just recently had a cervical fusion C2 through C4 ACDF, he is now currently getting chemotherapy for his melanoma the these agents are well known to cause fever. He otherwise feels fine however he presents emergency room because he has been having a fever T-max 102.9 degrees.Patient reports that he had a fever 101 last night around midnight. This came down with Tylenol. This morning he had a fever to 100.6. He has follow-up appoint with Neurosurgery this morning and has been doing well. His incision lines are clean, dry and intact no evidence of infection or pus or redness. He denies worsening neck pain. He denies cough. Denies urinary complaints, denies chest pain shortness of breath or abdominal pain. He does have chills. He otherwise appears well. He decided come to the emergency room as he had a T-max denied 102.9 that was not amendable to Tylenol. He is not allowed to take aspirin or ibuprofen given his recent cervical fusion. Of note this patient is not hypotensive. Noted to be slightly tachycardic. Past Medical History: Melanoma metastatic Past Surgical History: recent cervical fusion due to C3 pathological fracture Social History: denies daily use of drugs alcohol tobacco products. Family History: Noncontributory ROS REVIEW OF SYSTEMS: A comprehensive 10 point review of systems is otherwise negative aside from elements mentioned in the history of present illness. Exam Constitutional appears well nontoxic, triage nursing summary reviewed, vital signs reviewed, awake/alert. Eyes normal conjunctivae and sclera, EOMI, PERRLA. HENT neck: In [place] J collar. anterior cervical incision and posterior cervical incision clean dry intact no evidence of pus, no redness, no drainage, normal inspection, atraumatic, moist mucus membranes, no epistaxis, neck supple / no meningismus, no raccoon eyes. Respiratory clear to auscultation bilaterally, normal breath sounds, no respiratory distress, no wheezing. Cardiovascular rate normal, regular rhythm, no murmur, no edema, distal pulses normal. Gastrointestinal soft, non-tender, no rebound, no guarding, normal bowel sounds, no distension, no pulsatile mass. Genitourinary no CVA tenderness. Musculoskeletal no midline vertebral tenderness, full range of motion, no calf swelling, no tenderness of extremities, no meningismus, good pulses, neurovascularly intact. Skin pink, warm, & dry, no rash, skin atraumatic. Neurologic awake, alert and oriented x 3, AAOx3, moves all 4 extremities equally, motor intact, sensory intact, CN II-XII intact, normal cerebellar, normal vision, normal speech. Psychiatric normal mood/affect. Heme/Lymph/Immune no lymphadenopathy. Differential Diagnosis: includes but is not limited to in a particular order, drug reaction, drug induced fever, sepsis, infection, bacteremia Medical Decision Making: plan for this patient two view chest x-ray, urinalysis , blood work, blood cultures, lactic acid IV fluid bolus. Will also touch base with his oncologist. Re-evaluation: 2056: Spoke with Dr. Ching, With Oncology. We Reviewed Case. I discussed the patient's workup in the emergency room is a normal chest x-ray, normal blood work including a non elevated white count and a no significant bandemia or left shift. His fever did improve here on its own without any antipyretics. His electrolytes look okay slightly low in sodium. The patient is adamantly requesting go home. Given that he appears well nontoxic there is no evidence of infection at the surgical site externally his blood work looks normal I will allow her to go home we did send blood cultures. He understands return emergency room with strict return precautions I went over strict return precautions with the patient and his they understand return emergency room if there is worsening fever vomiting or does not feel well. Most likely cause of fevers drug fever. I will also touch base with Neurosurgery. Most likely will allow this patient to go home. He understands over the weekend if he gets worse high fever vomiting or does not feel well to immediately return to the emergency room. Blood cultures are pending. 2114: Spoke with Dr. Avalos. Does not feel this patient based on the clinical picture that I have described to him needs imaging. in the patient's wound sites are clean dry and intact. No signs infection. No worsening neck pain. No indication for imaging was Neck. Will allowed to go home. Urinalysis pending at this time. 2114: I went over length about return precautions they understand return emergency room if there is worsening fever, vomiting or does not feel well questions or concerns. Source: Patient - Personal History Current Tetanus/Diphtheria Vaccine: Yes Current Tetanus Diphtheria and Acellular Pertussis (TDAP): Yes - Medical/Surgical History Hx Asthma: No Hx Chronic Respiratory Disease: No Hx Diabetes: No Hx Cardiac Disease: No Hx Renal Disease: No Hx Cirrhosis: No Hx Alcoholism: No Hx HIV/AIDS: No Hx Splenectomy or Spleen Trauma: No Other PMH: metastatic melanoma, leg fx when teenager, - Social History Smoking Status: Former smoker Constitutional: Initial Vital Signs Temperature (C) 38.6 C H 03/12/17 19:28 Heart Rate 114 H 03/12/17 19:28 Respiratory Rate 18 03/12/17 19:28 Blood Pressure 103/71 03/12/17 19:28 O2 Sat (%) 94 03/12/17 19:28 O2 Delivery Mode Room Air Allergies/Adverse Reactions: No Known Allergies Allergy (Verified 03/03/17 15:03) Home Medications: Medication Instructions Recorded Acetaminophen [Tylenol ES 500 mg 1,000 mg PO Q6 PRN 03/03/17 (*)] Dabrafenib Mesylate [Tafinlar] 150 mg PO Q12H 03/03/17 Fentanyl 12.5 mcg TD Q72H 03/03/17 Fentanyl 37.5 37.5 mcg TD Q72H 03/03/17 Finasteride [Proscar 5 MG (*)] 5 mg PO DAILY 03/03/17 Gabapentin 600 mg PO TID 03/03/17 Prochlorperazine Maleate 10 mg PO Q6H PRN 03/03/17 [Compazine 10mg (*)] Trametinib Dimethyl Sulfoxide 2 mg PO DAILY@2230 03/03/17 [Mekinist] diphenhydrAMINE [Benadryl 50 MG 50 mg PO HS 03/03/17 (*)] Methocarbamol [Robaxin 750 mg (*)] 750 mg PO QID PRN #0 tab 03/06/17 Polyethylene Glycol 3350 [Miralax 17 gm PO TID #0 pkt 03/06/17 17 gm (*)] Sennosides/Docusate Sodium 1 - 2 tab PO BID #0 tab 03/06/17 [Senokot-S] oxyCODONE IR [Oxycodone Ir (*)] 5 - 10 mg PO Q4HRS PRN #0 tab 03/06/17 Medical Decision Making - Diagnostics Imaging Results: Imaging Impressions Chest X-Ray 03/12/17 20:00 Impression: 1. Decreasing atelectasis left lower lobe from prior study. 2. Patient's previous left hilar and right lower lobe masses are not visualized on current chest x-ray.. - Data Points Laboratory Results: Laboratory Results 03/12/17 20:05 03/12/17 20:05 03/12/17 03/12/17 03/12/17 20:05 20:05 20:05 WBC RBC Hgb Hct MCV MCH MCHC RDW Plt Count MPV Neut % (Auto) Lymph % (Auto) [place] % (Auto) Eos % (Auto) Baso % (Auto) Nucleat RBC Rel Count Absolute Neuts (auto) Absolute Lymphs (auto) Absolute Monos (auto) Absolute Eos (auto) Absolute Basos (auto) Absolute Nucleated RBC Immature Gran % Immature Gran # PT 14.7 SEC SEC (12.0-15.0) INR 1.15 (0.83-1.16) APTT 38.5 SEC H SEC (23.0-38.0) VBG Lactic Acid Sodium 129 mEq/L L mEq/L (134-144) Potassium 4.7 mEq/L mEq/L (3.5-5.2) Chloride 100 mEq/L mEq/L (97-110) Carbon Dioxide 18 mEq/l L mEq/l (22-31) Anion Gap 11 mEq/L mEq/L (8-16) BUN 15 mg/dL mg/dL (7-23) Creatinine 0.9 mg/dL mg/dL (0.7-1.3) Estimated GFR > 60 Glucose 117 mg/dL H mg/dL (70-100) Calcium 8.0 mg/dL L mg/dL (8.5-10.4) Urine Color Pending Urine Appearance Pending Urine pH Pending Ur Specific [place] Pending Urine Protein Pending Urine Ketones Pending Urine Blood Pending Urine Nitrate Pending Urine Bilirubin Pending Urine Urobilinogen Pending Ur Leukocyte Esterase Pending Urine Glucose Pending 03/12/17 03/12/17 20:05 20:05 WBC 4.80 10^3/uL 10^3/uL (3.80-9.50) RBC 3.18 10^6/uL L 10^6/uL (4.40-6.38) Hgb 9.2 g/dL L g/dL (13.7-17.5) Hct 27.4 % L % (40.0-51.0) MCV 86.2 fL fL (81.5-99.8) MCH 28.9 pg pg (27.9-34.1) MCHC 33.6 g/dL g/dL (32.4-36.7) RDW 14.5 % % (11.5-15.2) Plt Count 332 10^3/uL 10^3/uL (150-400) MPV 8.2 fL L fL (8.7-11.7) Neut % (Auto) 61.9 % % (39.3-74.2) Lymph % (Auto) 29.4 % % (15.0-45.0) [place] % (Auto) 7.5 % % (4.5-13.0) Eos % (Auto) 0.4 % L % (0.6-7.6) Baso % (Auto) 0.6 % % (0.3-1.7) Nucleat RBC Rel Count 0.0 % % (0.0-0.2) Absolute Neuts (auto) 2.97 10^3/uL 10^3/uL (1.70-6.50) Absolute Lymphs (auto) 1.41 10^3/uL 10^3/uL (1.00-3.00) Absolute Monos (auto) 0.36 10^3/uL 10^3/uL (0.30-0.80) Absolute Eos (auto) 0.02 10^3/uL L 10^3/uL (0.03-0.40) Absolute Basos (auto) 0.03 10^3/uL 10^3/uL (0.02-0.10) Absolute Nucleated RBC 0.00 10^3/uL 10^3/uL (0-0.01) Immature Gran % 0.2 % % (0.0-1.1) Immature Gran # 0.01 10^3/uL 10^3/uL (0.00-0.10) PT INR APTT VBG Lactic Acid 1.0 mmol/L mmol/L (0.7-2.1) Sodium Potassium Chloride Carbon Dioxide Anion Gap BUN Creatinine Estimated GFR Glucose Calcium Urine Color Urine Appearance Urine pH Ur Specific [place] Urine Protein Urine Ketones Urine Blood Urine Nitrate Urine Bilirubin Urine Urobilinogen Ur Leukocyte Esterase Urine Glucose Medications Given: Discontinued Medications Sodium Chloride (Ns) 1,000 mls @ 0 mls/hr IV EDNOW ONE; Wide Open PRN Reason: Protocol Stop: 03/12/17 19:47 Last Admin: 03/12/17 20:45 Dose: 1,000 mls Departure - Departure Disposition: Home, Routine, Self-Care Clinical Impression: Hyponatremia Fever Qualifiers: Fever type: drug-induced Qualified Code(s): R50.2 - Drug induced fever Condition: Good Instructions: Fever in Adults (ED) Additional Instructions: 1. Return emergency room if he develops any worsening symptoms this includes high fever you do not feel well vomiting or any questions or concerns. 2. Please call Dr. Ching if you have any questions or concerns you more welcome to return emergency room at any time. 3. If we call you about abnormal blood cultures please return to the ER. Referrals: NONE *PRIMARY CARE P,. [Primary Care Provider] - As per Instructions Dorcas Chign MD [Medical Doctor] - As per Instructions
[2017-03-12 20:20] LABS: % IMMATURE GRANULYOCYTES 0.2 % (0.0-1.1); ABSOLUTE IMMATURE GRANULOCYTES 0.01 10^3/uL (0.00-0.10); ADD DIFF? NO; ADD MORPH? NO; ADD SCAN? NO; ATYPICAL LYMPHOCYTE FLAG 80 (0-99); FRAGMENT RBC FLAG 0 (0-99); HEMATOCRIT 27.4 % (40.0-51.0); HEMOGLOBIN 9.2 g/dL (13.7-17.5); LEFT SHIFT FLG 0 (0-99); LIPEMIA HEMOLYSIS FLAG 80 (0-99); MEAN CELL HEMOGLOBIN 28.9 pg (27.9-34.1); MEAN CELL HEMOGLOBIN CONCENTR. 33.6 g/dL (32.4-36.7); MEAN CELL VOLUME 86.2 fL (81.5-99.8); MEAN PLATELET VOLUME 8.2 fL (8.7-11.7); PLATELET CLUMPS FLAG 20 (0-99); PLATELET COUNT 332 10^3/uL (150-400); RED BLOOD CELL COUNT 3.18 10^6/uL (4.40-6.38); RED CELL DISTRIBUTION WIDTH 14.5 % (11.5-15.2)
[2017-03-12 20:28] LABS: ANION GAP 11 mEq/L (8-16); CARBON DIOXIDE 18 mEq/l (22-31); CHLORIDE 100 mEq/L (97-110); CREATININE 0.9 mg/dL (0.7-1.3); GLOMERULAR FILTRATION RATE > 60; GLUCOSE 117 mg/dL (70-100); POTASSIUM 4.7 mEq/L (3.5-5.2); SODIUM 129 mEq/L (134-144)
[2017-03-12 20:35] LABS: INR 1.15 (0.83-1.16); PROTIME(PATIENT) 14.7 SEC (12.0-15.0)
[2017-03-12 20:36] LABS: APTT 38.5 SEC (23.0-38.0)
[2017-03-12 21:19] LABS: COLOR YELLOW; LEUKOCYTE ESTERASE,URINE NEGATIVE (NEGATIVE); NITRITE,URINE NEGATIVE (NEGATIVE)
[2017-03-12 21:30] VITALS: BP 114/66; PULSE 92; O2SAT 97
[2017-03-12 22:15] VITALS: RESP 18; TEMP 99.3
== END 2017-03-12 22:15 | disposition home or self-care (01) ==
DX: R50.2 Drug induced fever (principal); T39.1X5A Adverse effect of 4-Aminophenol derivatives, initial encounter; E87.1 Hypo-osmolality and hyponatremia; E86.9 Volume depletion, unspecified; Z85.820 Personal history of malignant melanoma of skin; Z87.891 Personal history of nicotine dependence

== ENCOUNTER 2017-03-13 05:39 | Inpatient (IN) | payer OTHER ==
--- NOTE | 2017-03-13 06:29 | EDPHY ---
H & P Stated Complaint: fevers continue pcp instructed to return for admission Time Seen by Provider: 03/13/17 06:05 HPI/ROS: CHIEF COMPLAINT: Fever HISTORY OF PRESENT ILLNESS: Patient is a 61-year-old man with a history of stage IV metastatic melanoma cancer. He was hospitalized 2 weeks ago after a pathologic C3 fracture fused by Dr. Pagan. He is currently on chemotherapy agents that are known to cause fevers. The patient states that he feels asymptomatic until his fever spikes and then he has rigors and body aches. Tylenol seems to control the fever but only for a couple of hours. He was here yesterday with the same and refused admission. Lab work was done. He was anemic but did not have an elevated white blood cell count. He was slightly hyponatremic. Tonight his fever spiked at 104.5 and he spoke with his oncologist Dorcas Ching who recommended he come to the hospital for admission. His girlfriend gave him Tylenol around 3:00 a.m. any is now afebrile. REVIEW OF SYSTEMS: Constitutional: See HPI EENTM: denies: blurred vision, double vision, nose congestion Respiratory: denies: cough, shortness of breath Cardiac: denies: chest pain, irregular heart rate, lightheadedness, palpitations Gastrointestinal/Abdominal: denies: abdominal pain, diarrhea, nausea, vomiting, blood streaked stools Genitourinary: denies: dysuria, frequency, hematuria, pain Musculoskeletal: denies: joint pain, muscle pain Skin: denies: lesions, rash, jaundice, bruising Neurological: denies: headache, numbness, paresthesia, tingling, dizziness, weakness Hematologic/Lymphatic: denies: blood clots, easy bleeding, easy bruising Immunologic/allergic: denies: HIV/AIDS, transplant EXAM: GENERAL: Well-appearing, well-nourished and in no acute distress. HEAD: Atraumatic, normocephalic. EYES: Pupils equal round and reactive to light, extraocular movements intact, sclera anicteric, conjunctiva are normal. ENT: TMs normal, nares patent, oropharynx clear without exudates. Moist mucous membranes. NECK: Cervical collar in place, wounds clean dry and intact LUNGS: Breath sounds clear to auscultation bilaterally and equal. No wheezes rales or rhonchi. HEART: Regular rate and rhythm without murmurs, rubs or gallops. ABDOMEN: Soft, nontender, normoactive bowel sounds. No guarding, no rebound. No masses appreciated. BACK: No CVA tenderness, no spinal tenderness, step-offs or deformities EXTREMITIES: Normal range of motion, no pitting or edema. No clubbing or cyanosis. NEUROLOGICAL: Cranial nerves II through XII grossly intact. Normal speech, normal gait. 5/5 strength, normal movement in all extremities, normal sensation PSYCH: Normal mood, normal affect. SKIN: Warm, dry, normal turgor, no visible rashes or lesions. Source: Patient Exam Limitations: No limitations - Personal History Current Tetanus/Diphtheria Vaccine: Yes Current Tetanus Diphtheria and Acellular Pertussis (TDAP): Yes - Medical/Surgical History Hx Asthma: No Hx Chronic Respiratory Disease: No Hx Diabetes: No Hx Cardiac Disease: No Hx Renal Disease: No Hx Cirrhosis: No Hx Alcoholism: No Hx HIV/AIDS: No Hx Splenectomy or Spleen Trauma: No Other PMH: metastatic melanoma, leg fx when teenager, - Family History Significant Family History: No pertinent family hx - Social History Smoking Status: Former smoker Alcohol Use: Sober Drug Use: None Constitutional: Initial Vital Signs Temperature (C) 36.9 C 03/13/17 05:40 Heart Rate 116 H 03/13/17 05:40 Respiratory Rate 18 03/13/17 05:40 Blood Pressure 98/61 L 03/13/17 05:40 O2 Sat (%) 95 03/13/17 05:40 O2 Delivery Mode Room Air Allergies/Adverse Reactions: No Known Allergies Allergy (Verified 03/03/17 15:03) Home Medications: Medication Instructions Recorded Acetaminophen [Tylenol ES 500 mg 1,000 mg PO Q6 PRN 03/03/17 (*)] Dabrafenib Mesylate [Tafinlar] 150 mg PO Q12H 03/03/17 Fentanyl 12 mcg TD Q72H 03/03/17 Fentanyl 37.5 37.5 mcg TD Q72H 03/03/17 Finasteride [Proscar 5 MG (*)] 5 mg PO HS 03/03/17 Gabapentin 600 mg PO TID 03/03/17 Prochlorperazine Maleate 10 mg PO Q6H PRN 03/03/17 [Compazine 10mg (*)] Trametinib Dimethyl Sulfoxide 2 mg PO DAILY@2230 03/03/17 [Mekinist] diphenhydrAMINE [Benadryl 50 MG 50 mg PO HS PRN 03/03/17 (*)] Methocarbamol [Robaxin 750 mg (*)] 750 mg PO QID PRN #0 tab 03/06/17 oxyCODONE IR [Oxycodone Ir (*)] 5 - 10 mg PO Q4HRS PRN #0 tab 03/06/17 Polyethylene Glycol 3350 [Miralax 17 gm PO TID 03/13/17 17 gm (*)] Sennosides/Docusate Sodium 1 - 2 tab PO BID PRN 03/13/17 [Senokot-S] Medical Decision Making ED Course/Re-evaluation: 6:25 a.m. I discussed the case with Mulugeta Dosdon who will admit to the medical service. Will not repeat lab work because was done recently. Blood cultures have been sent. Differential Diagnosis: Partial list of the Differential diagnosis considered include but were not limited to; drug fever, melanoma, anxiety and although unlikely based on the history and physical exam, I also considered abscess, sepsis, endocarditis, wound infection. I discussed these differential diagnoses and the plan with the patient as well as the usual and expected course. The patient understands that the diagnosis is provisional and that in medicine we are not always correct and that further workup is often warranted. Usual and customary warnings were given. All of the patient's questions were answered. The patient was instructed to return to the emergency department should the symptoms at all worsen or return, otherwise to followup with the physician as we discussed. - Data Points Medications Given: Discontinued Medications Cefepime HCl 2 gm/ Dextrose 100 mls @ 200 mls/hr IV Q12HRS JONATHAN PRN Reason: Protocol Stop: 04/12/17 08:59 Last Admin: 03/13/17 10:25 Dose: Not Given Miscellaneous Medication (Fentanyl 37.5) 37.5 mcg TD Q72H JONATHAN Stop: 09/09/17 08:44 Last Admin: 03/13/17 10:26 Dose: Not Given Departure - Departure Disposition: [facility] Acute Clinical Impression: Metastatic melanoma Fever Qualifiers: Fever type: drug-induced Qualified Code(s): R50.2 - Drug induced fever Condition: Fair
[2017-03-13] MEDS ORDERED: HYDROmorphONE/DILAUDID 1 MG/ML SYR IVP PRN (07:20)
[2017-03-13] MEDS ORDERED: IBUPROFEN 200 MG TAB PO PRN (07:20)
[2017-03-13] MEDS ORDERED: ONDANSETRON 4 MG/2 ML VIAL IVP PRN (07:20)
[2017-03-13] MEDS ORDERED: LORazepam 0.5 MG TAB PO PRN (07:20)
[2017-03-13] MEDS ORDERED: PROMETHAZINE HCL 25 MG/ML INJ IVP PRN (07:20)
[2017-03-13] MEDS ORDERED: diphenhydrAMINE 25 MG CAP PO PRN (07:20)
[2017-03-13] MEDS ORDERED: ACETAMINOPHEN 325 MG TAB PO PRN (07:20)
[2017-03-13] MEDS ORDERED: ONDANSETRON DISINTEGRATING 4 MG TAB PO PRN (07:20)
[2017-03-13] MEDS ORDERED: LACTULOSE 20 GM/30 ML UDCUP PO PRN (07:24)
[2017-03-13] MEDS ORDERED: MAGNESIUM HYDROXIDE 30 ML UDCUP PO PRN (07:24)
[2017-03-13] MEDS ORDERED: BISACODYL 10 MG SUPP PR PRN (07:24)
--- NOTE | 2017-03-13 08:17 | PDGENHP ---
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 He has had shaking chills and nausea associated with the fever. He was seen in the ER earlier in the night but declined admission at that time. When he went home fever and rigors continued with T max of 104 leading him to return to the hospital. He had some nausea with the high fever but no other associated sxs--specifically denies dysuria, cough, sob, skin irritation. He previously had multiple skin and subcutaneous nodules that have almost entirely resolved since starting his most recent chemo regimen. He was evaluated by NSG yesterday and his post operative wounds appear clean and dry and do not have e/o post op infection. He has not eaten or drank much in the last 24 hours in part due to needing to wait to eat after taking chemo, but also due to not feeling well. History Information - Allergies/Home Medication List Allergies/Adverse Reactions: No Known Allergies Allergy (Verified 03/03/17 15:03) Home Medications: Acetaminophen [Tylenol ES 500 mg (*)] 1,000 mg PO Q6 PRN 03/03/17 [Last Taken ] Dabrafenib Mesylate [Tafinlar] 150 mg PO Q12H 03/03/17 [Last Taken 03/12/17] Fentanyl 12 mcg TD Q72H 03/03/17 [Last Taken 03/11/17 1800] Fentanyl 37.5 37.5 mcg TD Q72H 03/03/17 [Last Taken 03/11/17 18:00] Finasteride [Proscar 5 MG (*)] 5 mg PO HS 03/03/17 [Last Taken 03/12/17] Gabapentin 600 mg PO TID 03/03/17 [Last Taken 03/12/17] Prochlorperazine Maleate [Compazine 10mg (*)] 10 mg PO Q6H PRN 03/03/17 [Last Taken 03/13/17] Trametinib Dimethyl Sulfoxide [Mekinist] 2 mg PO DAILY@2230 03/03/17 [Last Taken 03/12/17] diphenhydrAMINE [Benadryl 50 MG (*)] 50 mg PO HS PRN 03/03/17 [Last Taken ] Polyethylene Glycol 3350 [Miralax 17 gm (*)] 17 gm PO TID 03/13/17 [Last Taken Unknown] Sennosides/Docusate Sodium [Senokot-S] 1 - 2 tab PO BID PRN 03/13/17 [Last Taken Unknown] I have personally reviewed and updated: family history, medical history, social history, surgical history - Past Medical History cancer (stage 4 melanoma diffuse osseous/liver/adrenal/muscle/fat/brain mets) Additional medical history: pathologic C 3 fracture with moderate to severe central canal stenosis - Surgical History Reports: spinal surgery (c3 corpectomy, anterior/posterior fusion) - Family History Positive for: cancer (mother with skin cancer) - Social History Smoking Status: Former smoker (20-30 pack year smoking hx) Alcohol Use: Sober Drug Use: None Additional social history: 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, lives with his girlfriend Review of Systems ROS: 10pt was reviewed & negative except for what was stated in HPI & below Physical Exam Temp Pulse Resp BP Pulse Ox 37.1 C 95 16 100/65 94 03/13/17 07:30 03/13/17 07:30 03/13/17 07:30 03/13/17 07:30 03/13/17 07:30 Constitutional: no apparent distress, appears nourished, uncomfortable Eyes: PERRL, anicteric sclera Ears, Nose, Mouth, Throat: moist mucous membranes, hearing normal, no oral mucosal ulcers Cardiovascular: regular rate and rhythym, no murmur, rub, or gallop, No edema Respiratory: no respiratory distress, no rales or rhonchi, clear to auscultation Gastrointestinal: normoactive bowel sounds, soft, non-tender abdomen Genitourinary: no bladder fullness, no bladder tenderness Skin: warm, normal color, other (a few remaining scattered subcutaneous firm nodules without overlying erythema or skin changes) Musculoskeletal: full muscle strength, no muscle tenderness Neurologic: AAOx3, CN II-XII Intact Psychiatric: interacting appropriately, not anxious, not encephalopathic Lab Data & Imaging Review Visualized and Interpreted Chest x-ray results: Yes Chest X-Ray results: no infiltrate, other (decreasing LLL infiltrate, hilar mass not appreciated) Assessment & Plan Assessment: Fever (Acute) Metastatic melanoma (Acute) 61 yo M with hx of widely metastatic melanoma and recent C3 pathologic fracture s/p corpectomy and fusion on 03/05 admitted with fever # fever: likely drug fever given time frame of initiation of biologic chemotherapy and no e/o of infectious source thus far. Blood cultures have been drawn and are pending. Given associated rigors and persistent, relatively high fever, will start empiric abx for now with cefepime and monitor fever curve and blood cultures # metastatic melanoma: diffuse disease present but does seem to be responding well to current regimen with significant decrease in skin/subcu lesions. Plan for f/u imaging at some point. Oncology has been consulted. Will hold chemo for now. # hyponatremia: in setting of poor po intake and fever and likely hypovolemic hyponatremia, will start IVF and trend # hyperglycemia: has been persistent in the recent past, likely related to steroid use but currently still elevated and no steroids reported on med list, will check a1c # pathologic fracture with associated cervical central canal stenosis: s/p surgery last week, has some continued neuropathy that sounds to be stable since surgery, as above nsg has recently evaluated and does not feel post op infection present or that repeat imaging indicated. If no other infectious source found would request IP NSG consultation and repeat evaluation. Patient to be in [place] collar at all times. # IP status, will need > 48 hours stay for eval/mgmt of above Patient new to my care. Old records reviewed and summarized as above. Care plan reviewed with ER physician including plans for onc consult. Further hx obtained from patients girlfriend present at bedside.
[2017-03-13] MEDS ORDERED: PROCHLORPERAZINE MALEATE 10 MG TAB PO PRN (08:33)
[2017-03-13] MEDS ORDERED: METHOCARBAMOL 750 MG TAB PO PRN (08:33)
[2017-03-13] MEDS ORDERED: FENTANYL TD SCH (08:45)
[2017-03-13] MEDS ORDERED: CEFEPIME HCL 2 GM in D5W 100 ML IV SCH (09:00)
[2017-03-13] MEDS: oxyCODONE IR 5 MG TAB PO PRN ×3 (10:04→21:10)
[2017-03-13] MEDS: GABAPENTIN 300 MG CAP PO SCH ×3 (10:04→21:04)
[2017-03-13] MEDS: ACETAMINOPHEN 500 MG TAB PO PRN ×3 (10:05→23:46)
[2017-03-13 10:19] LABS: ALANINE AMINOTRANSFERASE 46 IU/L (21-72); ALBUMIN 3.6 g/dL (3.5-5.0); ALKALINE PHOSPHATASE 263 IU/L (38-126); ANION GAP 12 mEq/L (8-16); ASPARTATE AMINOTRANSFERASE 59 IU/L (17-59); BILIRUBIN,TOTAL 0.5 mg/dL (0.1-1.4); CALCIUM 8.3 mg/dL (8.5-10.4); CARBON DIOXIDE 20 mEq/l (22-31); CHLORIDE 102 mEq/L (97-110); GLOMERULAR FILTRATION RATE > 60; GLUCOSE 96 mg/dL (70-100); SODIUM 134 mEq/L (134-144); TOTAL PROTEIN 6.9 g/dL (6.3-8.2)
[2017-03-13] MEDS: NS 1,000 ML IV SCH ×2 (11:39→18:29)
[2017-03-13] MEDS: ENOXAPARIN 40 MG/0.4 ML SYR SC SCH (11:41)
[2017-03-13] MEDS: predniSONE 20 MG TAB PO SCH (11:41)
[2017-03-13 11:50] LABS: COLOR YELLOW; LEUKOCYTE ESTERASE,URINE NEGATIVE (NEGATIVE); NITRITE,URINE NEGATIVE (NEGATIVE)
--- NOTE | 2017-03-13 13:11 | HOSPPROG ---
Hospitalist Progress Note Assessment/Plan: pt seen and examined. Discussed with oncology. Fever most likely d/t chemo. Dc abx. Wait for cultures. Will treat fever with prednisone per protocols around his chemo. Objective: Vital Signs Temp Pulse Resp BP Pulse Ox 36.8 C 92 16 96/60 L 97 03/13/17 12:40 03/13/17 12:40 03/13/17 12:40 03/13/17 12:40 03/13/17 12:40 Laboratory Results 03/13/17 09:52 ICD10 Worksheet Patient Problems: Problems Problem Status Onset Fever Acute Metastatic melanoma Acute Pathologic cervical vertebral fracture Acute
--- NOTE | 2017-03-13 13:14 | GCON ---
[f rep st] CONSULTATION ONCOLOGY CONSULTATION NOTE. REASON FOR CONSULTATION: Patient with metastatic melanoma and fevers. HISTORY OF PRESENT ILLNESS: The patient is a very pleasant, 61-year-old male with a relatively rece nt diagnosis of widely metastatic melanoma who has recently undergone cervical spine fusion and is a dmitted with temperatures to 104.2. The patient's oncology history dates back to October when he pres ented with a cough and some left sided numbness and pain. MRI of the thoracic spine showed multiple numerous osseous metastatic disease. He had subcutaneous nodules over his skin. He had a mass in the right adrenal gland along with several mediastinal nodes, subcarinal nodes and a right lower lob e lesion. Biopsy of one of the skin nodules was consistent with metastatic melanoma. CT of the [facility] st showed a 4.6 cm left hilar mass that encased and partially occluded the left upper and left lower lobe bronchi. He had extensive mediastinal adenopathy along with liver mets and mets to bone, musc le and subcutaneous fat. MRI of the brain showed 4-5 relatively small brain mets with surrounding e jo ann. The patient was initially treated with 1 dose of Pembrolizumab, but the disease worsened, and following that initial treatment, the V600E mutation results came back identifying a mutation which then led to his treatment being switched to trametinib and dabrafenib which was started on February 26. Prior to that, on February 21 he developed severe new neck pain. He had a pathologic fracture at C3 and underwent a C3 corpectomy with C2 through C4 ACDF with C2 to C4 posterior fusion. He is currently 9 days postop. Also of note, the patient has had a dramatic response with resolution of the subcuta neous nodule since starting the drug combination. Chuck started developing fevers on Wednesday with temperatures up to 103. He has been taking Tylenol ar ound the clock. He was seen in the emergency room last night with no evidence of any infection. He was seen by MARY Ahumada yesterday in the office, and his surgical site was unremarkable. Last night in the emergency room, the surgical site was reexamined and also unremarkable. Chest x-ray wa s negative. Blood cultures were obtained. Labs did not show neutropenia with a white count of 4.8. He did not appear toxic but was having temperatures to 103.5. This was felt to be most consistent with a drug-related fever. The patient declined admission at that time but called again this ely tony at 4 a.m. with a temperature to 104.5. At that point, the patient was admitted for further manag ement of the fever. Currently, he is lying quietly in bed. His is present. He is having some pain in his neck whi ch has been consistent with postoperative pain ever since the surgery. He denies any new abdominal pain, urinary symptoms. No shortness of breath or cough. PAST MEDICAL HISTORY: Prior leg fracture in 2017. FAMILY HISTORY: Noncontributory. SOCIAL HISTORY: He is . He quit smoking 5 years ago. He drinks alcohol socially. REVIEW OF SYSTEMS: Otherwise negative other than mentioned in HPI. PHYSICAL EXAM: GENERAL: He is lying comfortably in bed. He has a collar on. VITAL SIGNS: Blood pressure 149/77, heart rate 109, O2 saturation is 95%. His temperature is 38.8. HEENT: Pupils are equal. Sclerae anicteric. Oropharynx is clear. LUNGS: Clear to auscultation. HEART: Regular r ate. ABDOMEN: Soft, nontender. EXTREMITIES: No edema. LABORATORY DATA: White blood cell count last evening 4.8, hematocrit 27.4, platelets 332. Chemistr y panel this morning: Sodium 134, alkaline phos 263, calcium 8.3, creatinine 1.0. IMPRESSION: This is a 61-year-old male with a recent diagnosis of widely metastatic melanoma with V 600E BRAF mutation who has had a dramatic initial response to combination therapy with dabrafenib an d trametinib. He is 9 days postop a C3 corpectomy with fusion and is admitted with temperatures to 104.5. There is no evidence of any identifiable infection. His course is most consistent with a dr ug fever. Pyrexia with this drug combination is quite common in greater than 50% of patients. The timing of the onset of the drug fever is also consistent with this. Temperatures greater than 104 a re considered a grade 4 fever, necessitating temporary cessation of the drug. The dabrafenib is giv en b.i.d., and the trametinib is given at h.s. This morning, we will hold the dabrafenib. He is ta enrique Tylenol around the clock, currently 1 g q.6 hours. Normally we would recommend ibuprofen aroun d the clock as well, but given his postop state we will hold on that. In light of the grade 4 toxic ity, will also start on prednisone 20 mg a day. My hope is that this can be rapidly tapered off in the coming days. This has been discussed with Neurosurgery, and they are okay with him being on it for a short course. We will re-evaluate his status this evening. I suspect we will at a minimum re sume the trametinib this evening and hopefully resume the dabrafenib either this evening or tomorrow morning. Of the 2 drugs, the dabrafenib is the more likely culprit. We will obviously want to calvin e an effort to resume the combination as soon as he is able to tolerate it given his excellent respo nse. Oftentimes the drug fevers are self-limited over a course of 3-4 days. All of this has been discussed with the patient and his . I have reviewed the case with Dr. Buster hinojosa and as well. Will continue to follow along with you. /[id number]/MODL
[2017-03-13] MEDS: SENNOSIDES/DOCUSATE SODIUM TAB PO SCH ×2 (16:34→21:05)
[2017-03-13] MEDS: POLYETHYLENE GLYCOL 3350 17 GM PKT PO PRN (16:39)
[2017-03-13] MEDS ORDERED: DABRAFENIB MESYLATE PO SCH (18:00)
--- NOTE | 2017-03-13 19:00 | GCON ---
[f rep st] CONSULTATION DATE OF CONSULTATION: 03/13/2017 CONSULTING SERVICE: Hospitalist, medicine and oncology. REASON FOR CONSULT: Postoperative fever. HISTORY OF PRESENT ILLNESS: The patient is a pleasant 61-year-old male, recently diagnosed with wid shalini metastatic melanoma who a patient of my partner, Dr. Senthil Goel. He had a C3 corpectomy and an anterior cervical spinal fusion with Dr. Goel on 03/05/2017. He was seen in [facility] yesterday by Glenn Durham, PAC, for his routine postoperative check and was found to have heal thy-appearing wounds and be in good overall condition. Last night, he had very high fevers up to ne sp 105 degrees Fahrenheit at one point. He presented twice to the emergency department, and the s econd time was admitted for this reason. Overall it is felt that the etiology of his fever is drug fever from his chemotherapy agents as he had completely normal hematology profile and no other rober rning signs or symptoms of a true wound infection. I discussed the case with Dr. Dorcas Ching, his o ncologist, and also my partner, Dr. Goel. On my interview, the patient is in no distress, in his bed, and is having no difficulty with pain in his neck, trouble swallowing, or difficulty wit h his voice quality. He has had no redness to his incisions, no drainage of any kind. PAST MEDICAL/SURGICAL HISTORY: Stage IV melanoma with mets to the spine, other osseous mets, liver, adrenal, muscle, adipose tissue, and brain mets. ALLERGIES: No known allergies. CODE STATUS: Full. MEDICATIONS: Tylenol, dabrafenib, fentanyl, fentanyl patch, finasteride, gabapentin, Compazine, tra metinib, Benadryl, MiraLAX . FAMILY HISTORY: Mother with skin cancer as well. SOCIAL HISTORY: Past smoker approximately 20 to 30 pack years. 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 [facility]. Does not use alcohol or illicit drugs. REVIEW OF SYSTEMS: 10 points reviewed and negative other than stated in HPI. VITALS: Blood pressure ranging from 96 to 149 systolic and 61 to 77 diastolic, heart rate 95 to 116 . Temperature current 36.8. O2 saturations 97%. Respiratory rate of 16. LABS: White blood cell count 4.8, with a neutrophil percentage of 61.9 and absolute neutrophil coun t 2.97, which is all within normal range. Hemoglobin 9.2, platelet count 332. Sodium 134. UA pend ing. Blood cultures pending. NEUROLOGIC EXAM: Patient is awake, alert, oriented x3. Appears stated age. He is in no acute dist ress. He has a cervical collar that fits well. He has normal voice quality. He has 5/5 strength i n his upper and lower extremities. He has no pronator drift. He has normal sensory exam to light t ouch and pinprick. He has normal deep tendon reflexes. He does not have any abnormal reflexes. He has no cerebellar signs. Gait is deferred. His anterior cervical and posterior cervical incisions are clean, dry, and intact, well appearing, without any signs of infection whatsoever. REVIEW OF IMAGING: I have reviewed the patient's past pre-surgical and postsurgical imaging, but he does not have any new imaging in the past 24 hours that is pertinent to this case. IMPRESSION AND PLAN: The patient is a pleasant 61-year-old male, patient of Dr. Goel, my p artner, widely metastatic melanoma, who underwent a C3 corpectomy and an anterior/posterior cervical fusion on 03/05/2017. Has no evidence to support a wound infection either on lab work or on physic al exam, but is presenting with very high fevers that Dr. Ching believes are likely related to his chemotherapy medications. I discussed the case with her and my partner, Dr. Goel, and we h ave authorized Dr. Ching to order the patient prednisone for a period of a few days in hopes of bhaskar ving down his fevers. Other than that, there are no neurosurgical issues and we will be following p eripherally. Please call us with any questions. /[id number]/MODL
[2017-03-13] MEDS: FINASTERIDE 5 MG TAB PO SCH (21:04)
[2017-03-13] MEDS: Trametinib Dimethyl Sulfoxide [Mekinist] 2 MG PO SCH (22:43)
[2017-03-13] MEDS: DABRAFENIB MESYLATE 75 MG PO SCH (22:44)
[2017-03-14] MEDS: NS 1,000 ML IV SCH ×2 (01:56→10:19)
[2017-03-14 05:07] LABS: % IMMATURE GRANULYOCYTES 0.4 % (0.0-1.1); ABSOLUTE IMMATURE GRANULOCYTES 0.01 10^3/uL (0.00-0.10); ADD DIFF? NO; ADD MORPH? NO; ADD SCAN? NO; ANION GAP 10 mEq/L (8-16); ATYPICAL LYMPHOCYTE FLAG 0 (0-99); CALCIUM 7.9 mg/dL (8.5-10.4); CARBON DIOXIDE 20 mEq/l (22-31); CHLORIDE 108 mEq/L (97-110); CREATININE 0.8 mg/dL (0.7-1.3); FRAGMENT RBC FLAG 0 (0-99); GLOMERULAR FILTRATION RATE > 60; GLUCOSE 116 mg/dL (70-100); HEMATOCRIT 26.1 % (40.0-51.0); HEMOGLOBIN 8.6 g/dL (13.7-17.5); LEFT SHIFT FLG 0 (0-99); LIPEMIA HEMOLYSIS FLAG 80 (0-99); MEAN CELL HEMOGLOBIN 29.1 pg (27.9-34.1); MEAN CELL VOLUME 88.2 fL (81.5-99.8); MEAN PLATELET VOLUME 8.3 fL (8.7-11.7); PLATELET CLUMPS FLAG 10 (0-99); PLATELET COUNT 278 10^3/uL (150-400); POTASSIUM 4.4 mEq/L (3.5-5.2); RED BLOOD CELL COUNT 2.96 10^6/uL (4.40-6.38); RED CELL DISTRIBUTION WIDTH 14.6 % (11.5-15.2); SODIUM 138 mEq/L (134-144)
[2017-03-14] MEDS: ACETAMINOPHEN 500 MG TAB PO PRN ×4 (06:02→23:58)
[2017-03-14] MEDS: oxyCODONE IR 5 MG TAB PO PRN ×4 (06:02→21:38)
[2017-03-14] MEDS ORDERED: fentaNYL 50 MCG PATCH TD SCH (08:00)
[2017-03-14] MEDS: predniSONE 20 MG TAB PO SCH (10:47)
[2017-03-14] MEDS: ENOXAPARIN 40 MG/0.4 ML SYR SC SCH (10:47)
[2017-03-14] MEDS: GABAPENTIN 300 MG CAP PO SCH ×3 (10:48→21:38)
[2017-03-14] MEDS: SENNOSIDES/DOCUSATE SODIUM TAB PO SCH ×2 (11:17→20:54)
--- NOTE | 2017-03-14 13:26 | HOSPPROG ---
Hospitalist Progress Note Assessment/Plan: * fevers * thought to be due to biologic therapy for malignant melanoma * on prednisone to help suppress * also on Tylenol * watch 1 more night * blood cultures are negative * recent cervical spine surgery * metastatic melanoma * appears to be responding to therapy and thus oncology really wants to continue the therapy Subjective: feeling okay but continued fevers Objective: Vital Signs Temp Pulse Resp BP Pulse Ox 38.4 C H 109 H 18 112/67 93 03/14/17 12:35 03/14/17 12:35 03/14/17 12:35 03/14/17 12:35 03/14/17 12:35 Laboratory Results 03/14/17 04:45 03/14/17 04:45 03/13/17 03/14/17 03/15/17 05:59 05:59 05:59 Intake Total 3212 Balance 3212 - Physical Exam Constitutional: no apparent distress, appears nourished, not in pain Eyes: anicteric sclera, EOMI Cardiovascular: regular rate and rhythym Respiratory: no respiratory distress, no rales or rhonchi, clear to auscultation Gastrointestinal: normoactive bowel sounds, soft, non-tender abdomen, no palpable masses Neurologic: AAOx3 Psychiatric: interacting appropriately, not anxious, not encephalopathic, thought process linear ICD10 Worksheet Patient Problems: Problems Problem Status Onset Fever Acute Metastatic melanoma Acute Pathologic cervical vertebral fracture Acute
[2017-03-14] MEDS: DABRAFENIB MESYLATE 75 MG PO SCH ×2 (13:55→22:29)
--- NOTE | 2017-03-14 17:13 | SOAPPROG ---
[facility] Progress Note Assessment/Plan: Assessment: * Fever-suspect drug fever from combo of dabrafenib and trametinib. Dabrafenib likely contributing more. On prednisone 20 mg. took combo last night with fever this morning of 103. Will try combo again tonight and follow temp. He has had excellent early response to combo. No signs of infection, Cultures negative. * Metastatic melanoma * S/p C3 corpectomy with fusion. Plan: 03/14/17 17:09 Subjective: feels better, neck pain is stable Objective: Vital Signs Temp Pulse Resp BP Pulse Ox 36.8 C 100 18 108/65 94 03/14/17 16:37 03/14/17 16:37 03/14/17 16:37 03/14/17 16:37 03/14/17 16:37 Laboratory Results 03/14/17 04:45 03/14/17 04:45 03/13/17 03/14/17 03/15/17 05:59 05:59 05:59 Intake Total 3212 Balance 3212 Physical Exam - Physical Exam General Appearance: alert, no apparent distress Neck: other (collar on) Abdomen: non-tender, soft Extremities: No pedal edema ICD10 Worksheet Patient Problems: Problems Problem Status Onset Fever Acute Metastatic melanoma Acute Pathologic cervical vertebral fracture Acute
[2017-03-14] MEDS ORDERED: fentaNYL 12 MCG PATCH TD SCH (18:00)
[2017-03-14] MEDS: FINASTERIDE 5 MG TAB PO SCH (20:47)
[2017-03-14] MEDS: Trametinib Dimethyl Sulfoxide [Mekinist] 2 MG PO SCH (22:31)
[2017-03-15 01:15] LABS: HEMOGLOBIN A1C 5.7 % (4.0-6.0)
[2017-03-15] MEDS: oxyCODONE IR 5 MG TAB PO PRN ×4 (04:43→20:32)
[2017-03-15 05:30] LABS: % IMMATURE GRANULYOCYTES 0.5 % (0.0-1.1); ABSOLUTE IMMATURE GRANULOCYTES 0.01 10^3/uL (0.00-0.10); ADD DIFF? NO; ADD MORPH? NO; ADD SCAN? NO; ATYPICAL LYMPHOCYTE FLAG 0 (0-99); FRAGMENT RBC FLAG 0 (0-99); HEMATOCRIT 24.7 % (40.0-51.0); LEFT SHIFT FLG 0 (0-99); LIPEMIA HEMOLYSIS FLAG 80 (0-99); MEAN CELL HEMOGLOBIN 28.3 pg (27.9-34.1); MEAN CELL HEMOGLOBIN CONCENTR. 32.4 g/dL (32.4-36.7); MEAN CELL VOLUME 87.3 fL (81.5-99.8); MEAN PLATELET VOLUME 8.3 fL (8.7-11.7); PLATELET CLUMPS FLAG 0 (0-99); PLATELET COUNT 288 10^3/uL (150-400); RED BLOOD CELL COUNT 2.83 10^6/uL (4.40-6.38); RED CELL DISTRIBUTION WIDTH 14.6 % (11.5-15.2)
[2017-03-15 05:36] LABS: ALANINE AMINOTRANSFERASE 41 IU/L (21-72); ALBUMIN 2.4 g/dL (3.5-5.0); ALKALINE PHOSPHATASE 209 IU/L (38-126); ANION GAP 7 mEq/L (8-16); ASPARTATE AMINOTRANSFERASE 43 IU/L (17-59); BILIRUBIN,TOTAL 0.3 mg/dL (0.1-1.4); BILIRUBIN-CONJUGATED 0.3 mg/dL (0.0-0.5); CALCIUM 8.1 mg/dL (8.5-10.4); CARBON DIOXIDE 20 mEq/l (22-31); CHLORIDE 107 mEq/L (97-110); CREATININE 0.9 mg/dL (0.7-1.3); GLOMERULAR FILTRATION RATE > 60; GLUCOSE 109 mg/dL (70-100); POTASSIUM 4.4 mEq/L (3.5-5.2); SODIUM 134 mEq/L (134-144); TOTAL PROTEIN 5.3 g/dL (6.3-8.2)
[2017-03-15] MEDS: GABAPENTIN 300 MG CAP PO SCH ×3 (08:51→21:00)
[2017-03-15] MEDS: predniSONE 20 MG TAB PO SCH (08:51)
[2017-03-15] MEDS: ENOXAPARIN 40 MG/0.4 ML SYR SC SCH (08:51)
[2017-03-15] MEDS: ACETAMINOPHEN 500 MG TAB PO PRN (08:51)
[2017-03-15] MEDS: SENNOSIDES/DOCUSATE SODIUM TAB PO SCH ×2 (08:57→20:49)
--- NOTE | 2017-03-15 09:26 | HOSPPROG ---
Hospitalist Progress Note Assessment/Plan: 61-year-old undergoing treatment for malignant melanoma and noting fevers presumed secondary to the chemotherapy for the malignant melanoma. Patient is new to me today. -drug-induced fever: -anemia with a hemoglobin of 8.0 and stable without signs of bleeding -S PCM with an albumin of 2.4. Plan: Medication a dosage has been changed to see if this improves his fever profile. Possible discharge in 1-2 days. Currently blood cultures are negative. Subjective: No complaints other than intermittent fever denies cough shortness of breath purulent sputum chest pain abdominal pain nausea vomiting or dysuria or back pain Objective: Vital Signs Temp Pulse Resp BP Pulse Ox 38.8 C H 114 H 16 143/81 H 93 03/15/17 08:43 03/15/17 08:00 03/15/17 08:00 03/15/17 08:00 03/15/17 08:00 Laboratory Results 03/15/17 05:04 03/15/17 05:04 03/14/17 03/15/17 03/16/17 05:59 05:59 05:59 Intake Total 3211 1999 Balance 3211 1999 Selected Entries 03/13/17 03/13/17 03/14/17 05:40 09:34 10:22 Temperature (C) 36.9 C 38.8 C H 39.5 C H 03/14/17 03/15/17 12:35 08:43 Temperature (C) 38.4 C H 38.8 C H Laboratory Tests 03/14/17 03/15/17 03/15/17 04:45 05:04 05:04 WBC 2.72 L 2.20 L Hgb 8.6 L 8.0 L Albumin 2.4 L Febrile to 38.8, WBC low with neutrophil count slightly > 1,000; anemia with Hgb =8.0 and stable - Time Spent With Patient Time Spent with Patient: greater than 35 minutes Time Spent with Patient: Greater than 35 minutes spent on this patients care, greater than 50% of time spent counseling, educating, and coordinating care regarding the above mentioned plan. - Pending Discharge Pending Discharge Within 24 Hours: Yes Pending Discharge Date: 03/16/17 Pending Discharge Time: 11:00 - Physical Exam Constitutional: no apparent distress Eyes: PERRL Ears, Nose, Mouth, Throat: moist mucous membranes, hearing normal Cardiovascular: regular rate and rhythym, no murmur, rub, or gallop Respiratory: no respiratory distress, no rales or rhonchi Gastrointestinal: normoactive bowel sounds, soft, non-tender abdomen Genitourinary: no bladder fullness Skin: warm Musculoskeletal: full muscle strength Neurologic: AAOx3, CN II-XII Intact Psychiatric: interacting appropriately ICD10 Worksheet Patient Problems: Problems Problem Status Onset Metastatic melanoma Acute Pathologic cervical vertebral fracture Acute Fever Acute
[2017-03-15] MEDS: DABRAFENIB MESYLATE 75 MG PO SCH ×2 (10:02→22:34)
--- NOTE | 2017-03-15 10:48 | SOAPPROG ---
[facility] Progress Note Assessment/Plan: Assessment: 1. BRAF V600E melanoma, widely metastatic 2. Hyperpyrexia due to debrafenib / trametinib 3. s/p C3 corpectomy due to pathologic fracture Plan: - continue prednisone 20 mg daily and tylenol RTC - lower dabrafenib to 75 mg BID. will be more likely to reduce fever than 150 mg daily - hold trametinib for now - hard to tell if it is contributing to the fever - will reintroduce trametinib once his fever has come down. may also increase dabrafenib to 100 mg BID in outpatient setting 40 min spent w/ pt and partner and in coordination of care 03/15/17 10:45 Subjective: T 38.8 this AM, but otherwise feels well. Objective: exam: Gen NAD in neck brace no sub-Q lesions evident lungs CTAB CV RRR no MGR Abd: +BS NT ND Ext: no edema Vital Signs Temp Pulse Resp BP Pulse Ox 38.8 C H 114 H 16 143/81 H 93 03/15/17 08:43 03/15/17 08:00 03/15/17 08:00 03/15/17 08:00 03/15/17 08:00 Laboratory Results 03/15/17 05:04 03/15/17 05:04 03/14/17 03/15/17 03/16/17 05:59 05:59 05:59 Intake Total 3212 1999 Balance 3212 1999 ICD10 Worksheet Patient Problems: Problems Problem Status Onset Fever Acute Metastatic melanoma Acute Pathologic cervical vertebral fracture Acute
[2017-03-15] MEDS ORDERED: DABRAFENIB MESYLATE 75 MG PO SCH (12:00)
[2017-03-15] MEDS: ACETAMINOPHEN 500 MG TAB PO SCH ×2 (18:00→23:53)
[2017-03-15] MEDS: FINASTERIDE 5 MG TAB PO SCH (20:33)
[2017-03-16 05:43] LABS: % IMMATURE GRANULYOCYTES 0.4 % (0.0-1.1); ABSOLUTE IMMATURE GRANULOCYTES 0.01 10^3/uL (0.00-0.10); ADD DIFF? NO; ADD MORPH? NO; ADD SCAN? YES; ATYPICAL LYMPHOCYTE FLAG 0 (0-99); FRAGMENT RBC FLAG 0 (0-99); HEMATOCRIT 25.6 % (40.0-51.0); HEMOGLOBIN 8.4 g/dL (13.7-17.5); LEFT SHIFT FLG 20 (0-99); LIPEMIA HEMOLYSIS FLAG 80 (0-99); MEAN CELL HEMOGLOBIN 28.9 pg (27.9-34.1); MEAN CELL HEMOGLOBIN CONCENTR. 32.8 g/dL (32.4-36.7); MEAN PLATELET VOLUME 8.5 fL (8.7-11.7); PLATELET CLUMPS FLAG 0 (0-99); PLATELET COUNT 318 10^3/uL (150-400); RED BLOOD CELL COUNT 2.91 10^6/uL (4.40-6.38); RED CELL DISTRIBUTION WIDTH 14.7 % (11.5-15.2)
[2017-03-16] MEDS: ACETAMINOPHEN 500 MG TAB PO SCH ×2 (05:55→12:42)
[2017-03-16 06:09] LABS: SCAN NEGATIVE
[2017-03-16] MEDS: GABAPENTIN 300 MG CAP PO SCH ×2 (09:22→15:15)
[2017-03-16] MEDS: SENNOSIDES/DOCUSATE SODIUM TAB PO SCH (09:23)
[2017-03-16] MEDS: ENOXAPARIN 40 MG/0.4 ML SYR SC SCH (09:23)
[2017-03-16] MEDS: predniSONE 20 MG TAB PO SCH (09:23)
[2017-03-16] MEDS: oxyCODONE IR 5 MG TAB PO PRN ×2 (09:26→15:15)
[2017-03-16] MEDS: DABRAFENIB MESYLATE 75 MG PO SCH (10:32)
[2017-03-16] MEDS: POLYETHYLENE GLYCOL 3350 17 GM PKT PO PRN (12:43)
--- NOTE | 2017-03-16 13:46 | SOAPPROG ---
[facility] Progress Note Assessment/Plan: Assessment: 1. BRAF V600E melanoma, widely metastatic 2. Hyperpyrexia due to debrafenib / trametinib 3. s/p C3 corpectomy due to pathologic fracture Plan: - ok to discharge today - medication adjustments as follows: -- today - dabrafenib 75 mg BID; hold mekanist; continue prednisone 20 mg daily -- tomorrow- if no fever, restart mekanist in PM -- Wednesday - if no fever, lower prednisone to 10 mg daily - call [facility] office next week for further dose adjustment instructions - has f/u with Gena on 03/25 already arranged. 25 min spent w/ pt and and in coordination of care case d/w dr munoz Subjective: feels well. afebrile >24 h Objective: exam unchanged Vital Signs Temp Pulse Resp BP Pulse Ox 35.9 C L 79 16 98/62 L 97 03/16/17 08:54 03/16/17 08:54 03/16/17 08:54 03/16/17 08:54 03/16/17 08:54 Laboratory Results 03/16/17 04:55 03/15/17 05:04 03/15/17 03/16/17 03/17/17 05:59 05:59 05:59 Intake Total 1999 600 Balance 1999 600 ICD10 Worksheet Patient Problems: Problems Problem Status Onset Fever Acute Metastatic melanoma Acute Pathologic cervical vertebral fracture Acute
[2017-03-16 14:00] VITALS: BP 92/61; PULSE 93; RESP 18; TEMP 97.7; O2SAT 93
--- NOTE | 2017-03-16 14:38 | GDS ---
[f rep st] DISCHARGE SUMMARY KNOWN ACUTE DIAGNOSES ON THIS ADMISSION: 1. Drug fever secondary to chemotherapeutic agents. 2. Metastatic malignant melanoma. 3. Hyponatremia on admission. 4. Hyperglycemia, likely related to use of steroids. 5. Pathologic fracture of the cervical spine. CONSULTATIONS: Oncology and Neurosurgery. PROCEDURES: None. HOSPITAL COURSE: A 61-year-old male presented with a fever of 38.8. He has a known malignant melan thea and has been under chemotherapeutic treatment with Tafinlar and a 2nd chemotherapeutic agent. Venessa allen was admitted and noted to have a low white count and a mild anemia, with hemoglobin 8.6, but showe d no signs of blood loss. Sodium was mildly low but returned to normal during the hospitalization. Thought to have hyperglycemia, and hemoglobin A1c was checked and found to be normal at 5.7. His c hemotherapy was changed and one agent was dropped and the 2nd was changed to a b.i.d. dosing. With that change he did not have a fever in the prior 24 hours before discharge. Did initially show an a lbumin of 3.6, which fell to 2.4, but he was taking adequate nutrition. DISCHARGE MEDICATIONS: Discontinued medication would be Tafinlar; it was stopped at 150 mg a day an d will be changed to 75 mg b.i.d. the Mekinist was stopped; he had been taking 2 mg per day. Remainder of medications are as follows: Senokot-S 1-2 tablets b.i.d. p.r.n., MiraLAX 17 g p.o. t.i .d. p.r.n., OxyIR 5-10 mg q.4 hours p.r.n. pain, Robaxin 75 mg p.o. q.i.d. p.r.n., fentanyl transder mal patch 37.5 mg transdermally q.72 hours along with a fentanyl 12 mg patch to be used every 72 tito rs, Tylenol 1000 mg p.o. q.6 hours p.r.n. fever, Benadryl 50 mg p.o. q.h.s., Compazine 10 mg q.6 tito rs p.r.n. nausea, Proscar 5 mg q.h.s., and gabapentin 600 mg three times daily. New medication would be Tafinlar 75 mg p.o. twice daily. PLAN: This gentleman is discharged to home under his own care. His diet will be regular and normal texture. He will follow up with Benitez Avery MD, and see Dr. Avery in the next 2 weeks. /[id number]/MODL
== END 2017-03-16 16:15 | disposition home or self-care (01) | DRG 864 ==
LOC: OBSVTOIN 06:29 → F1N 08:17
PROVIDERS: ADMIT Internal Medicine; ATTEND Internal Medicine
DX: R50.9 Fever, unspecified (principal); T45.1X5A Adverse effect of antineoplastic and immunosuppressive drugs, initial encounter; Z85.820 Personal history of malignant melanoma of skin; C79.51 Secondary malignant neoplasm of bone; C78.7 Secondary malignant neoplasm of liver and intrahepatic bile duct; C79.31 Secondary malignant neoplasm of brain; C79.70 Secondary malignant neoplasm of unspecified adrenal gland; E87.1 Hypo-osmolality and hyponatremia; R73.9 Hyperglycemia, unspecified; T38.0X5A Adverse effect of glucocorticoids and synthetic analogues, initial encounter; Z98.1 Arthrodesis status; Z87.891 Personal history of nicotine dependence
CPT/HCPCS: 97161-GP; 97165-GO; J0692; J1650

== ENCOUNTER 2017-03-21 11:29 | Inpatient (IN) | payer OTHER ==
[2017-03-21] MEDS ORDERED: NS 1,000 ML IV ONE (11:42)
--- NOTE | 2017-03-21 12:03 | EDPHY ---
H & P Time Seen by Provider: 03/21/17 11:42 HPI/ROS: Chief complaint. Fever, low blood pressure HPI. 61-year-old male presents with fever and decreased blood pressure. Patient is being treated and having chemotherapy currently for metastatic melanoma with mets to liver, lung, bone. He was recently admitted for 2 days March 11 to for fever. It was felt to be fever secondary to chemotherapy as opposed to infection. states patient had fever to 104 degrees last night. She noted his blood pressure was about 90/60 this morning. She also felt the patient was lethargic and had decreased responsiveness. He also vomited once this morning. He has no sore throat, upper respiratory symptoms, cough, shortness of breath, chest pain, abdominal pain, urinary symptoms ROS Constitutional. Fever and low blood pressure Eyes. no problems with vision ENT. no sore throat, no nasal drainage Cardiovascular. no chest pain Respiratory. no shortness of breath, no cough Abdominal. no abdominal pain, no nausea/vomiting, no diarrhea . no problems urinating MS. no calf pain/swelling, no neck/back pain, no joint pain Skin. no rash Lymph. no swollen glands Neuro. no headache, no dizziness, no difficulty walking or with speech Past Medical/Surgical History: Past medical history is significant for metastatic melanoma, recent C3 pathologic fracture with fusion C2-4 Social History: , nonsmoker, no alcohol Smoking Status: Former smoker Physical Exam: General Appearance: Alert well-developed male mild distress vital signs show temp to be 37 degrees with heart rate 104 and blood pressure 114/73 Eyes: Pupils equal and round no pallor or injection. ENT, Mouth: Mucous membranes are moist. Respiratory: There are no retractions, lungs are clear to auscultation. Cardiovascular: Regular rate and rhythm. Gastrointestinal: Abdomen is soft and nontender, no masses, bowel sounds normal. Neurological: Awake and alert, sensory and motor exams grossly normal. Skin: Warm and dry, no rashes. Musculoskeletal: Neck is supple nontender. Extremities symmetrical, full range of motion. Psychiatric: Patient is oriented X 3, there is no agitation. Constitutional: Initial Vital Signs Temperature (C) 37.0 C 03/21/17 11:31 Heart Rate 104 H 03/21/17 11:31 Respiratory Rate 16 03/21/17 11:31 Blood Pressure 114/73 03/21/17 11:31 O2 Sat (%) 93 03/21/17 11:31 O2 Delivery Mode Room Air Allergies/Adverse Reactions: No Known Allergies Allergy (Verified 03/21/17 15:04) Home Medications: Medication Instructions Recorded Acetaminophen [Tylenol ES 500 mg 1,000 mg PO Q6 PRN 03/03/17 (*)] Fentanyl 12 mcg TD Q72H 03/03/17 Fentanyl 37.5 37.5 mcg TD Q72H 03/03/17 Finasteride [Proscar 5 MG (*)] 5 mg PO HS 03/03/17 Prochlorperazine Maleate 10 mg PO Q6H PRN 03/03/17 [Compazine 10mg (*)] diphenhydrAMINE [Benadryl 50 MG 50 mg PO HS PRN 03/03/17 (*)] Methocarbamol [Robaxin 750 mg (*)] 750 mg PO QID PRN #0 tab 03/06/17 oxyCODONE IR [Oxycodone Ir (*)] 5 - 10 mg PO Q4HRS PRN #0 tab 03/06/17 Polyethylene Glycol 3350 [Miralax 17 gm PO DAILY PRN 03/13/17 17 gm (*)] Sennosides/Docusate Sodium 1 - 2 tab PO BID PRN 03/13/17 [Senokot-S] Dabrafenib Mesylate [Tafinlar] 75 mg PO BID 03/21/17 Gabapentin [Neurontin 300 MG (*)] 600 mg PO TID 03/21/17 Trametinib Dimethyl Sulfoxide 2 mg PO HS 03/21/17 [Mekinist] predniSONE [Prednisone] 20 mg PO DAILY 03/21/17 Medical Decision Making - Diagnostics Imaging Results: Imaging Impressions Chest X-Ray 03/21/17 12:16 Impression: Chest negative for acute abnormality. Chest x-ray interpreted by me is negative for pneumonia Procedures: IV normal saline. Septic workup is performed. ED Course/Re-evaluation: re-exam --patient stable I consulted and discussed case with Dr. Jenkins who will see the patient in the emergency department Serial evaluations patient is stable. The patient, his , and I discussed imaging and lab results. We discussed treatment plan including recommendation for admission. They expressed understanding and agreement Differential Diagnosis: Cancer patient with melanoma receiving chemotherapy with fever to 104 degrees. Septic workup is negative for sepsis. No source of infection is identified. This is likely fever secondary to chemotherapy - Data Points Laboratory Results: Laboratory Results 03/21/17 12:00 03/21/17 12:00 03/21/17 03/21/17 03/21/17 12:00 12:00 12:00 WBC 10.56 10^3/uL H 10^3/uL (3.80-9.50) RBC 3.79 10^6/uL L 10^6/uL (4.40-6.38) Hgb 10.8 g/dL L g/dL (13.7-17.5) Hct 33.2 % L % (40.0-51.0) MCV 87.6 fL fL (81.5-99.8) MCH 28.5 pg pg (27.9-34.1) MCHC 32.5 g/dL g/dL (32.4-36.7) RDW 15.7 % H % (11.5-15.2) Plt Count 559 10^3/uL H 10^3/uL (150-400) MPV 8.0 fL L fL (8.7-11.7) Neut % (Auto) 60.9 % % (39.3-74.2) Lymph % (Auto) 25.9 % % (15.0-45.0) Tompkins % (Auto) 10.3 % % (4.5-13.0) Eos % (Auto) 0.9 % % (0.6-7.6) Baso % (Auto) 0.5 % % (0.3-1.7) Nucleat RBC Rel Count 0.0 % % (0.0-0.2) Absolute Neuts (auto) 6.42 10^3/uL 10^3/uL (1.70-6.50) Absolute Lymphs (auto) 2.74 10^3/uL 10^3/uL (1.00-3.00) Absolute Monos (auto) 1.09 10^3/uL H 10^3/uL (0.30-0.80) Absolute Eos (auto) 0.10 10^3/uL 10^3/uL (0.03-0.40) Absolute Basos (auto) 0.05 10^3/uL 10^3/uL (0.02-0.10) Absolute Nucleated RBC 0.00 10^3/uL 10^3/uL (0-0.01) Immature Gran % 1.5 % H % (0.0-1.1) Immature Gran # 0.16 10^3/uL H 10^3/uL (0.00-0.10) VBG Lactic Acid 1.3 mmol/L mmol/L (0.7-2.1) Sodium 129 mEq/L L mEq/L (134-144) Potassium 4.6 mEq/L mEq/L (3.5-5.2) Chloride 95 mEq/L L mEq/L (97-110) Carbon Dioxide 20 mEq/l L mEq/l (22-31) Anion Gap 14 mEq/L mEq/L (8-16) BUN 17 mg/dL mg/dL (7-23) Creatinine 1.0 mg/dL mg/dL (0.7-1.3) Estimated GFR > 60 Glucose 118 mg/dL H mg/dL (70-100) Calcium 8.4 mg/dL L mg/dL (8.5-10.4) Medications Given: Discontinued Medications Sodium Chloride (Ns) 1,000 mls @ 0 mls/hr IV EDNOW ONE; Wide Open PRN Reason: Protocol Stop: 03/21/17 11:43 Last Admin: 03/21/17 12:31 Dose: 1,000 mls Departure - Departure Disposition: [facility] In[facility] Acute Clinical Impression: Metastatic melanoma Condition: Fair
[2017-03-21 12:11] LABS: % IMMATURE GRANULYOCYTES 1.5 % (0.0-1.1); ABSOLUTE IMMATURE GRANULOCYTES 0.16 10^3/uL (0.00-0.10); ADD DIFF? NO; ADD MORPH? NO; ADD SCAN? NO; ATYPICAL LYMPHOCYTE FLAG 30 (0-99); FRAGMENT RBC FLAG 0 (0-99); HEMATOCRIT 33.2 % (40.0-51.0); HEMOGLOBIN 10.8 g/dL (13.7-17.5); LEFT SHIFT FLG 10 (0-99); LIPEMIA HEMOLYSIS FLAG 80 (0-99); MEAN CELL HEMOGLOBIN 28.5 pg (27.9-34.1); MEAN CELL HEMOGLOBIN CONCENTR. 32.5 g/dL (32.4-36.7); MEAN CELL VOLUME 87.6 fL (81.5-99.8); PLATELET CLUMPS FLAG 30 (0-99); PLATELET COUNT 559 10^3/uL (150-400); RED BLOOD CELL COUNT 3.79 10^6/uL (4.40-6.38); RED CELL DISTRIBUTION WIDTH 15.7 % (11.5-15.2)
[2017-03-21 12:22] LABS: ANION GAP 14 mEq/L (8-16); CALCIUM 8.4 mg/dL (8.5-10.4); CARBON DIOXIDE 20 mEq/l (22-31); CHLORIDE 95 mEq/L (97-110); GLOMERULAR FILTRATION RATE > 60; GLUCOSE 118 mg/dL (70-100); POTASSIUM 4.6 mEq/L (3.5-5.2); SODIUM 129 mEq/L (134-144)
--- NOTE | 2017-03-21 12:52 | CPEKG ---
Heart Rate: 86 RR Interval: 698 P-R Interval: 184 QRSD Interval: 86 QT Interval: 352 QTC Interval: 421 P Morris: 77 QRS Morris: 21 T Wave Morris: 43 EKG Severity - NORMAL ECG - EKG Impression: SINUS RHYTHM Electronically Signed By: Jesus Rivera 21-Mar-2017 15:47:37
[2017-03-21] MEDS ORDERED: ONDANSETRON 4 MG/2 ML VIAL IVP PRN (14:16)
[2017-03-21] MEDS ORDERED: ALBUTEROL 60 PUFFS/8 GM MDI IH PRN (14:16)
[2017-03-21] MEDS ORDERED: ALBUTEROL 3 ML DEYVIAL IH PRN (14:16)
[2017-03-21] MEDS ORDERED: ACETAMINOPHEN 325 MG TAB PO PRN (14:16)
[2017-03-21] MEDS ORDERED: ZOLPIDEM TARTRATE 5 MG TAB PO PRN (14:16)
[2017-03-21] MEDS ORDERED: ONDANSETRON DISINTEGRATING 4 MG TAB PO PRN (14:16)
[2017-03-21] MEDS ORDERED: HYDROCODONE/APAP 5/325 TAB PO PRN (14:16)
[2017-03-21] MEDS ORDERED: BISACODYL 10 MG SUPP PR PRN (14:53)
[2017-03-21] MEDS ORDERED: MAGNESIUM HYDROXIDE 30 ML UDCUP PO PRN (14:53)
[2017-03-21] MEDS ORDERED: LACTULOSE 20 GM/30 ML UDCUP PO PRN (14:53)
[2017-03-21] MEDS ORDERED: ALBUTEROL 200 PUFFS/18 GM MDI IH PRN (15:00)
--- NOTE | 2017-03-21 15:06 | GHP ---
[f rep st] HISTORY AND PHYSICAL DATE OF ADMISSION: 03/21/2017 REASON FOR ADMISSION: Fever, nausea and vomiting. HISTORY OF PRESENT ILLNESS: A 61-year-old male with known widely metastatic melanoma, who was recen tly hospitalized because of a fever from 03/13 to 03/16. It was clarified at the time that the feve r was probably secondary to his chemotherapeutic agents of dabrafenib and/or Mekinist. Upon dischar ge, the dabrafenib dosage was changed from 150 mg daily to 75 mg twice daily and the Mekinist was he ld on the day of discharge. If he did not have a fever, they were to restart the Mekinist on , which would have been 1 day post his discharge. Thus, the Mekinist was restarted on Wednesday, and he took it again on , along with dabrafenib. On Wednesday, he was noted to have a tempera ture of approximately 101 but otherwise well without a rash, sore throat, or cough. Wednesday, 1 day [employer], he had fever in the evening of 104. Upon instructions from Oncology, he was told to take Tyle nol and some naproxen and his temperature declined. On the day of admission, he awoke and was afebrile but developed weakness, was noted to be pale and had nausea and vomiting. His girlfriend took his blood pressure and she noted his pressure was appr oximately 60 over palpable in both arms, and he was brought to the emergency department. As noted, there has been a fever but he denies having a cough, rash, sore throat, abdominal pain, melena, eara you, headache or photophobia. PAST MEDICAL HISTORY: Stage IV melanoma with metastases to the spine and other osseous metastases, liver, adrenals, muscle tissue, adipose tissue and brain mets. ALLERGIES: No known allergies. CODE STATUS: Full. FAMILY HISTORY: His mother had skin cancer. There is no history of early coronary disease. SOCIAL HISTORY: He is a past smoker of approximately 20-30 pack years. 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 He lives with his girlfriend here in [place]. He does not use alcohol or any illicit drugs. REVIEW OF SYSTEMS: The 10-point review is negative except as noted in the HPI. In particular, he h as not had a rash, sore throat, cough, or any feeling of shortness of breath, abdominal pain, melena , dysuria, any joint disorder recently or in the past, and he denies having a headache or photophobi a. MEDICATIONS: At this time include oxy IR, Benadryl, Senokot S, Compazine, MiraLAX, Robaxin, gabapen tin, Proscar, dabrafenib at 75 mg a day, Mekinist 2 mg at bedtime, prednisone 20 mg per day. PHYSICAL EXAMINATION: GENERAL: He is an alert, calm gentleman who appears without distress. VITAL SIGNS: Here are normal. Blood pressure is normal. SaO2 is 93% on room air. Respiratory rate 16, and his heart rate is 104 initially. HEENT: Shows that he is wearing a hard cervical collar becau se of a C3 corpectomy secondary to metastatic disease at the C3 level. He reports there is some ten derness in the paraspinous region, but he reports he does not have a headache nor does he feel as th ough his neck is stiff. He is alert and oriented x3. There is no adenopathy appreciated in the cer vical, axillary, or inguinal region. Posterior oropharynx appears normal without erythema. Tongue and buccal mucosa are without lesions. SKIN: Overall shows no signs of a rash or erythema, althoug h the hands and feet feel cool. CHEST: Chest wall nontender to palpation. LUNGS: Clear to P and A without wheezing or rales. HEART: Singular S1 and S2. No murmur or gallop. ABDOMEN: Normoacti ve bowel sounds. No masses, tenderness or organomegaly. EXTREMITIES: No edema, cyanosis or clubbi ng. Negative Homans sign. NEUROLOGIC: He is an oriented x3 calm gentleman. Cranial nerves 2-12 i ntact to specific testing. The gentleman received 1 L of normal saline here in the emergency department. LABORATORY DATA: Shows a WBC elevated from previously to 10,000 with a hemoglobin of 10.8. His pre vious WBCs have been in the range of 2-3000. Lactate is normal at 1.3 and his chemistry panel shows hyponatremia with a sodium of 129, which is consistent with his previous sodium upon discharge from his last visit. Chest x-ray shows no active cardiopulmonary disease to my reading. It has been reviewed here in the emergency department. ECG shows normal sinus rhythm at approximately 86. There is low voltage in the frontal plane but go od and regular R-wave progression. No ST or T-wave changes noted. ECG is judged to be normal to my reading. ASSESSMENT: 1. Fever, likely secondary to chemotherapeutic agent of Mekinist. Gentleman has taken dabrafenib a t 75 mg b.i.d. without a fever. It was only after the 3rd dose of Mekinist that he began to develop a fever. He was instructed to lower his dose of prednisone if he did not have a fever, but he has maintained the dose of prednisone at 20 mg per day. He did not receive any dabrafenib the day befor e admission because of the fever. He has also not had the Mekinist today. 2. Hyponatremia with a sodium of 128, which is multifactorial in nature and may be due to syndrome of inappropriate antidiuretic secretion of antidiuretic hormone or his chemotherapeutic agents. 3. Stage IV melanoma, widely metastatic. 4. Leukocytosis is likely secondary to a leukemoid reaction or perhaps a stress reaction due to his nausea and vomiting today. The vital signs in the emergency department did not confirm hypotension , but he did receive 1 L of normal saline. Overall, the gentleman, though reporting a fever, he is afebrile here in the emergency department. In addition, it is likely that he has fever secondary to his chemotherapeutic agents. He appears no ntoxic at this time. Despite these findings, I believe given the severity of the fever of 104, it i s prudent to do 2 blood cultures just as assurance and admit, restart his dabrafenib, but hold the M ekinist. The ideas will be discussed with Oncology. BILLING: The gentleman will be admitted to observation status. TIME: This admission required 50 minutes. /[id number]/MODL
[2017-03-21] MEDS: NS W/ 20 KCl/L 1,000 ML IV SCH ×2 (15:46→23:38)
[2017-03-21] MEDS ORDERED: FENTANYL 12 MCG TD SCH (17:30)
[2017-03-21] MEDS ORDERED: FENTANYL TD SCH (17:30)
[2017-03-21] MEDS ORDERED: POLYETHYLENE GLYCOL 3350 17 GM PKT PO PRN (17:30)
[2017-03-21] MEDS ORDERED: PROCHLORPERAZINE MALEATE 10 MG TAB PO PRN (17:30)
[2017-03-21] MEDS ORDERED: SENNOSIDES/DOCUSATE SODIUM TAB PO PRN (17:30)
[2017-03-21] MEDS ORDERED: GABAPENTIN 300 MG CAP PO ONE (17:46)
[2017-03-21] MEDS: predniSONE 10 MG TAB PO SCH (18:44)
[2017-03-21] MEDS: oxyCODONE IR 5 MG TAB PO PRN ×2 (18:45→22:30)
[2017-03-21] MEDS ORDERED: fentaNYL 12 MCG PATCH TD SCH (19:00)
[2017-03-21 20:06] LABS: COLOR YELLOW; LEUKOCYTE ESTERASE,URINE NEGATIVE (NEGATIVE); NITRITE,URINE NEGATIVE (NEGATIVE)
[2017-03-21 20:27] LABS: MUCUS TRACE /lpf (NONE-1+)
[2017-03-21] MEDS ORDERED: DABRAFENIB MESYLATE 75 MG PO SCH ×2 (21:00)
[2017-03-21] MEDS: FINASTERIDE 5 MG TAB PO SCH (21:40)
[2017-03-21] MEDS: GABAPENTIN 300 MG CAP PO SCH (21:41)
[2017-03-21] MEDS: SENNOSIDES/DOCUSATE SODIUM TAB PO SCH (21:48)
[2017-03-21] MEDS: ACETAMINOPHEN 500 MG TAB PO PRN (22:27)
[2017-03-21] MEDS: DABRAFENIB MESYLATE 75 MG PO SCH (23:51)
[2017-03-22] MEDS ORDERED: IBUPROFEN 600 MG TAB PO ONE (01:33)
[2017-03-22 04:36] LABS: % IMMATURE GRANULYOCYTES 0.9 % (0.0-1.1); ABSOLUTE IMMATURE GRANULOCYTES 0.07 10^3/uL (0.00-0.10); ADD DIFF? NO; ADD MORPH? NO; ADD SCAN? NO; ATYPICAL LYMPHOCYTE FLAG 20 (0-99); FRAGMENT RBC FLAG 20 (0-99); HEMATOCRIT 27.8 % (40.0-51.0); HEMOGLOBIN 9.1 g/dL (13.7-17.5); LEFT SHIFT FLG 0 (0-99); LIPEMIA HEMOLYSIS FLAG 80 (0-99); MEAN CELL HEMOGLOBIN 28.5 pg (27.9-34.1); MEAN CELL HEMOGLOBIN CONCENTR. 32.7 g/dL (32.4-36.7); MEAN CELL VOLUME 87.1 fL (81.5-99.8); MEAN PLATELET VOLUME 7.8 fL (8.7-11.7); PLATELET CLUMPS FLAG 0 (0-99); PLATELET COUNT 683 10^3/uL (150-400); RED BLOOD CELL COUNT 3.19 10^6/uL (4.40-6.38); RED CELL DISTRIBUTION WIDTH 15.3 % (11.5-15.2)
[2017-03-22 04:48] LABS: ANION GAP 8 mEq/L (8-16); CALCIUM 7.9 mg/dL (8.5-10.4); CARBON DIOXIDE 18 mEq/l (22-31); CHLORIDE 104 mEq/L (97-110); CREATININE 0.8 mg/dL (0.7-1.3); GLOMERULAR FILTRATION RATE > 60; GLUCOSE 121 mg/dL (70-100); SODIUM 130 mEq/L (134-144)
--- NOTE | 2017-03-22 08:02 | HOSPPROG ---
Hospitalist Progress Note Assessment/Plan: 61 yo with malignant melenoma, widely metatstatic, with probably drug induced fever -drug fever -leukocytosis resolved despite fever; BC pending -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, skin, liver, bone -C3 pathologic fracture in [place] collar Plan: -consult Dr Avery Objective: Vital Signs Temp Pulse Resp BP Pulse Ox 37.0 C 98 18 134/82 H 94 03/22/17 04:16 03/22/17 04:16 03/22/17 04:16 03/22/17 04:16 03/22/17 04:16 Laboratory Results 03/22/17 04:28 03/22/17 04:28 03/21/17 03/22/17 03/23/17 05:59 05:59 05:59 Intake Total 3186 Output Total 2 Balance 3184 Selected Entries 03/21/17 03/21/17 03/22/17 19:55 23:43 01:25 Heart Rate 91 109 H Temperature (C) 39.5 C H 39.4 C H 03/22/17 03/22/17 01:56 04:16 Heart Rate 98 Temperature (C) 38.4 C H 37.0 C Laboratory Tests 03/21/17 03/21/17 03/22/17 12:00 12:00 04:28 WBC 10.56 H 7.51 Hgb 10.8 L 9.1 L Sodium 129 L Calcium 8.4 L 03/22/17 04:28 WBC Hgb Sodium 130 L Calcium 7.9 L ICD10 Worksheet Patient Problems: Problems Problem Status Onset Metastatic melanoma Acute Fever Acute Pathologic cervical vertebral fracture Acute
[2017-03-22] MEDS: ACETAMINOPHEN 500 MG TAB PO PRN ×3 (08:33→22:07)
[2017-03-22] MEDS: SENNOSIDES/DOCUSATE SODIUM TAB PO SCH ×2 (08:35→20:10)
[2017-03-22] MEDS: NS W/ 20 KCl/L 1,000 ML IV SCH ×2 (08:36→15:47)
[2017-03-22] MEDS: GABAPENTIN 300 MG CAP PO SCH ×3 (08:36→20:09)
[2017-03-22] MEDS: oxyCODONE IR 5 MG TAB PO PRN ×3 (08:41→18:56)
[2017-03-22] MEDS: DABRAFENIB MESYLATE 75 MG PO SCH ×2 (09:47→22:07)
[2017-03-22] MEDS: ENOXAPARIN 40 MG/0.4 ML SYR SC SCH (09:51)
[2017-03-22] MEDS: predniSONE 10 MG TAB PO SCH (11:53)
--- NOTE | 2017-03-22 12:08 | SOAPPROG ---
SOAP Progress Note Assessment/Plan: Assessment: 1.) Stage IV Malignant Melanoma with [id number] mutation (+) status, showing good clinical response to the two drug regimen of Dabrafenib + Mekinist, but with marked adverse effects of Mekinist with Temp > 104, and hypotension thus far necessitating two hospitalizations. Per Mekinist FDA approved instructions for this level of pyrexia, the instructions are to withhold the dose and then start at a lower dose. Will Rx Mekinist 1 mg QD (0.5 mg, two/day), as D/W Dirk and his SO. Will continue glucocorticoids + acetominophen + Naproxen- if okay with Neurosurgery, and will monitor dose tolerance. I have informed Dr. Nolvia Avery of his problem necessitating the dose reduction which was sent through the outpt. chart to his [facility] mail away pharmacy. Plan: See above plan. Would with hold the Mekinist 2 mg today if it cannot be divided into a 1 mg dose. Continue reduced dose of Dabrafenib. Continue supportive meds and follow sx. and VS. 03/22/17 12:08 Subjective: Feeling better with recovery off of fever assoc. with Mekinist this AM. His significant other is present in the room and reports scenario over the past several weeks including the last two hospitalizations. No new sx. this AM. Objective: Afebrile, VSS HEENT- anicteric, no oral lesions, Neck- in hard collar Chest-clear CVS- RSR, no extra HS ABD- soft, NT no mass or ascites or HSM. nondistended EXT- warm, well perfused, and without diffuse skin changes Vital Signs Temp Pulse Resp BP Pulse Ox 38.2 C 98 16 147/84 H 94 03/22/17 08:20 03/22/17 08:20 03/22/17 08:20 03/22/17 08:20 03/22/17 08:20 Laboratory Results 03/22/17 04:28 03/22/17 04:28 03/21/17 03/22/17 03/23/17 05:59 05:59 05:59 Intake Total 3186 Output Total 2 Balance 3184 ICD10 Worksheet Patient Problems: Problems Problem Status Onset Metastatic melanoma Acute Fever Acute Pathologic cervical vertebral fracture Acute
[2017-03-22] MEDS: POLYETHYLENE GLYCOL 3350 17 GM PKT PO PRN (13:12)
[2017-03-22] MEDS: FINASTERIDE 5 MG TAB PO SCH (20:09)
[2017-03-23] MEDS: ACETAMINOPHEN 500 MG TAB PO PRN ×2 (04:25→10:13)
[2017-03-23] MEDS: NS W/ 20 KCl/L 1,000 ML IV SCH (06:24)
[2017-03-23] MEDS: oxyCODONE IR 5 MG TAB PO PRN ×2 (06:26→10:14)
[2017-03-23] MEDS ORDERED: FENTANYL TD SCH (09:00)
[2017-03-23] MEDS ORDERED: fentaNYL 12 MCG PATCH TD SCH ×2 (09:00)
[2017-03-23] MEDS ORDERED: fentaNYL 50 MCG PATCH TD SCH (10:00)
--- NOTE | 2017-03-23 10:04 | HOSPPROG ---
Hospitalist Progress Note Assessment/Plan: 61 yo with malignant melenoma, widely metatstatic, with probably drug induced fever -drug fever * Dose changes per Oncology * new headache * Will get stat CT scan -leukocytosis resolved despite fever; BC pending -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, skin, liver, bone -C3 pathologic fracture in [place] collar * Status post recent surgery Subjective: Complaining of severe left-sided headache which is fairly new. Also seems a little bit more somnolent Objective: Vital Signs Temp Pulse Resp BP Pulse Ox 36.8 C 88 15 136/75 H 96 03/23/17 07:23 03/23/17 07:23 03/23/17 07:23 03/23/17 07:23 03/23/17 07:23 Laboratory Results 03/22/17 04:28 03/22/17 04:28 03/22/17 03/23/17 03/24/17 05:59 05:59 05:59 Intake Total 3186 2815 Output Total 2 1975 Balance 3184 840 - Physical Exam Constitutional: no apparent distress, appears nourished, not in pain Eyes: PERRL, anicteric sclera, EOMI Respiratory: no respiratory distress Skin: warm Neurologic: AAOx3, other (5/5 strength in all 4 extremities) Psychiatric: interacting appropriately, not anxious, not encephalopathic ICD10 Worksheet Patient Problems: Problems Problem Status Onset Metastatic melanoma Acute Fever Acute Pathologic cervical vertebral fracture Acute
[2017-03-23] MEDS: ENOXAPARIN 40 MG/0.4 ML SYR SC SCH (10:05)
--- NOTE | 2017-03-23 10:49 | SOAPPROG ---
SOAP Progress Note Assessment/Plan: Assessment: 1.) Change in MS could be due to progression of brain mets/hemorrhage/ herniation/edema. He is to get a CT brain this AM to further assess. D/W SO at the bedside. Await imaging (CT head). 2.) Stage IV Malignant Melanoma with [id number] mutation (+) status, showing good clinical response to the two drug regimen of Dabrafenib + Mekinist, but with marked adverse effects of Mekinist with Temp > 104, and hypotension thus far necessitating two hospitalizations. Per Mekinist FDA approved instructions for this level of pyrexia, the instructions are to withhold the dose and then start at a lower dose. Will Rx Mekinist 1 mg QD (0.5 mg, two/day), as D/W Dirk and his SO. Will continue glucocorticoids + acetominophen + Naproxen- if okay with Neurosurgery, and will monitor dose tolerance. I have informed Dr. Nolvia Avery of his problem necessitating the dose reduction which was sent through the outpt. chart to his [facility] mail away pharmacy. Plan: Await CT scan. May need urgent steroids, or other measures. See above plan. Would with hold the Mekinist 2 mg today if it cannot be divided into a 1 mg dose. Continue reduced dose of Dabrafenib. Continue supportive meds and follow sx. and VS. 03/23/17 10:49 Subjective: Pt complains of headache this AM, but without other focal EDI SPECIALIST sx. His SO is at the bedside and notes his change in MS today. No other focal sx. Objective: Afebrile, VSS Pt is withdrawn and acknowledges questioning but doesnt answer. He had trouble swallowing pills. in NAD lying at 20 degree angle. HEENT- no facial assymetry, no oral lesions, pupils mid range and respond to light NECK- in hard collar Chest- clear CVS- RSR, no extra HS ABD- soft, NT, BS+, no mass or HSM EXT- warm and well perfused Neuo- sedated, does not converse with those in room. Hand grasp (+) but diminished bilaterally. Labs noted here: Cr 0.8 Hgb 9.1 Na 130, K 5.0 Vital Signs Temp Pulse Resp BP Pulse Ox 37.0 C 123 H 15 136/75 H 99 03/23/17 09:27 03/23/17 09:27 03/23/17 07:23 03/23/17 07:23 03/23/17 09:27 Laboratory Results 03/22/17 04:28 03/22/17 04:28 03/22/17 03/23/17 03/24/17 05:59 05:59 05:59 Intake Total 3186 2815 Output Total 2 1975 Balance 318 840 ICD10 Worksheet Patient Problems: Problems Problem Status Onset Metastatic melanoma Acute Fever Acute Pathologic cervical vertebral fracture Acute
[2017-03-23] MEDS: SENNOSIDES/DOCUSATE SODIUM TAB PO SCH ×2 (11:59→21:00)
[2017-03-23] MEDS: DABRAFENIB MESYLATE 75 MG PO SCH ×2 (15:34→21:04)
[2017-03-23] MEDS: GABAPENTIN 300 MG CAP PO SCH ×3 (15:34→21:01)
[2017-03-23] MEDS: predniSONE 10 MG TAB PO SCH (15:36)
[2017-03-23] MEDS: ACETAMINOPHEN 650 MG SUPP PR PRN ×2 (16:34→20:15)
[2017-03-23] MEDS ORDERED: D5W 1/2 NS 1,000 ML IV SCH (18:30)
[2017-03-23] MEDS ORDERED: GADOBUTROL 10 ML VIAL IVP ONE (18:58)
[2017-03-23] MEDS: methylPREDNISolone SOD SUCC 40 MG/ML VIAL IVP SCH (20:36)
[2017-03-23] MEDS: FINASTERIDE 5 MG TAB PO SCH (21:00)
[2017-03-23] MEDS ORDERED: D5W IV SCH (21:00)
[2017-03-23] MEDS ORDERED: METHYLPREDNISOLONE SOD SUCC IV SCH (21:00)
[2017-03-24 04:29] LABS: % IMMATURE GRANULYOCYTES 0.6 % (0.0-1.1); ABSOLUTE IMMATURE GRANULOCYTES 0.03 10^3/uL (0.00-0.10); ADD DIFF? NO; ADD MORPH? NO; ADD SCAN? NO; ATYPICAL LYMPHOCYTE FLAG 0 (0-99); FRAGMENT RBC FLAG 0 (0-99); HEMOGLOBIN 10.2 g/dL (13.7-17.5); LEFT SHIFT FLG 0 (0-99); LIPEMIA HEMOLYSIS FLAG 90 (0-99); MEAN CELL HEMOGLOBIN 28.5 pg (27.9-34.1); MEAN CELL VOLUME 83.8 fL (81.5-99.8); MEAN PLATELET VOLUME 7.8 fL (8.7-11.7); PLATELET CLUMPS FLAG 0 (0-99); PLATELET COUNT 406 10^3/uL (150-400); RED BLOOD CELL COUNT 3.58 10^6/uL (4.40-6.38); RED CELL DISTRIBUTION WIDTH 14.8 % (11.5-15.2)
[2017-03-24] MEDS: ACETAMINOPHEN 650 MG SUPP PR PRN ×2 (04:35→15:58)
[2017-03-24 04:47] LABS: ANION GAP 12 mEq/L (8-16); CALCIUM 8.1 mg/dL (8.5-10.4); CARBON DIOXIDE 19 mEq/l (22-31); CHLORIDE 91 mEq/L (97-110); CREATININE 0.9 mg/dL (0.7-1.3); GLOMERULAR FILTRATION RATE > 60; GLUCOSE 143 mg/dL (70-100); POTASSIUM 4.9 mEq/L (3.5-5.2); SODIUM 122 mEq/L (134-144)
[2017-03-24] MEDS: SENNOSIDES/DOCUSATE SODIUM TAB PO SCH ×2 (09:14→22:55)
[2017-03-24] MEDS: methylPREDNISolone SOD SUCC 40 MG/ML VIAL IVP SCH ×3 (09:14→21:44)
[2017-03-24] MEDS: GABAPENTIN 300 MG CAP PO SCH ×3 (09:14→22:55)
[2017-03-24] MEDS ORDERED: NS 1,000 ML IV SCH (09:45)
[2017-03-24] MEDS: DABRAFENIB MESYLATE 75 MG PO SCH ×2 (10:13→22:56)
--- NOTE | 2017-03-24 10:22 | SOAPPROG ---
SOAP Progress Note Assessment/Plan: Assessment: 1.) Change in MS could be due to Carcinomatous Meningitis, and less likely due to Hyponatremia. Both CT and MRI of brain do not explain change in MS. D/W his SO who is MPOA at length at the bedside today. 2.) Stage IV Malignant Melanoma with [id number] mutation (+) status, showing good clinical response to the two drug regimen of Dabrafenib + Mekinist, but with marked adverse effects of Mekinist with Temp > 104, and hypotension thus far necessitating two hospitalizations. Oral regimen for Melanoma on hold since patient cannot safely swallow meds. 3.) Hyponatremia in a euvolemic state. Suspect dilutional effect from IVF and little po intake. Could also be exaggerated due to drug effect. Pt. to get NS IVF and to repeat labs, serially. 4.) Drug fever noted and very common adverse effect seen with his oral Melanoma regimen. Plan: CSF exam to be ordered via IR dept with [facility] for standard studies and for CSF cytology. Change IVF to NS and follow labs and MS and VS. See above plan. Would with hold the Mekinist 2 mg today if it cannot be divided into a 1 mg dose. Continue reduced dose of Dabrafenib. Continue supportive meds and follow sx. and 03/24/17 10:21 Subjective: Pt still quite lethargic. Wakes up for a few seconds, but quickly drifts back to sleep. In NAD and in no pain. minimal spontaneous movement of extremities Objective: Has had temp down to normal range after spiking to 103 yesterday. VSS HEENT- pupils mid range and respond to light. No facial assymetry Neck- in collar Chest- adequate bilateral breath sounds CVS- RSR, no extra HS, ABD- soft, NT, BS+ EXT- lethargic and barely/briefly responds to stimuli. Minimal resistance to stimuli of extremities. Reflexes not brisk Labs as noted here: Na+ 122 and was 129 two days ago. BUN/CR 12.0.9, Co2 19 Glu 143 Hgb 10.2 PLT 406 WBC 5.21 MRI shows small punctate hemorrhages where brain mets might have been. No large area of edema/bleed/SAH/midline shift/herniation. No large brain mets or meningeal/dural findings. See report Vital Signs Temp Pulse Resp BP Pulse Ox 36.8 C 89 18 145/82 H 96 03/24/17 09:31 03/24/17 09:31 03/24/17 09:31 03/24/17 09:31 03/24/17 09:31 Laboratory Results 03/24/17 04:10 03/24/17 04:10 03/23/17 03/24/17 03/25/17 05:59 05:59 05:59 Intake Total 2205 Output Total 1950 350 Balance 255 -350 ICD10 Worksheet Patient Problems: Problems Problem Status Onset Metastatic melanoma Acute Fever Acute Pathologic cervical vertebral fracture Acute
--- NOTE | 2017-03-24 10:29 | HOSPPROG ---
Hospitalist Progress Note Assessment/Plan: 61 yo with malignant melenoma, widely metatstatic, admitted for most likely drug fever due to chemotherapy * fever * Probably related to chemotherapy. This is a common side effect. * Blood cultures have been negative during this hospitalization and previous * However get LP due to altered mental status and continued fever * On steroids for the drug fever * new headache * MRI of the brain shows probable improvement of previous metastases with some hemorrhagic changes * LP will be done today to evaluate for infection or carcinomatosis in the CSF * hyponatremia * This could account for his encephalopathy * Will switch to normal saline today * Check urine sodium and osmoles * Recheck sodium in 6 hours * acute encephalopathy * Started yesterday * Possibly due to hyponatremia * * lp today * 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 Fever this morning Objective: Vital Signs Temp Pulse Resp BP Pulse Ox 36.8 C 89 18 145/82 H 96 03/24/17 09:31 03/24/17 09:31 03/24/17 09:31 03/24/17 09:31 03/24/17 09:31 Laboratory Results 03/24/17 04:10 03/24/17 04:10 03/23/17 03/24/17 03/25/17 05:59 05:59 05:59 Intake Total 2205 Output Total 1950 350 Balance 255 -350 Discussed with Oncology. MRI brain results reviewed - Physical Exam Constitutional: no apparent distress, not in pain Eyes: anicteric sclera, EOMI Ears, Nose, Mouth, Throat: moist mucous membranes, hearing normal Cardiovascular: regular rate and rhythym, no murmur, rub, or gallop Respiratory: no respiratory distress, no rales or rhonchi, clear to auscultation Gastrointestinal: normoactive bowel sounds, soft, non-tender abdomen, no palpable masses Skin: warm Neurologic: other (Awakens to voice but not very conversive) Psychiatric: encephalopathic ICD10 Worksheet Patient Problems: Problems Problem Status Onset Metastatic melanoma Acute Fever Acute Pathologic cervical vertebral fracture Acute
[2017-03-24 12:26] LABS: INR 1.17 (0.83-1.16); PROTIME(PATIENT) 14.9 SEC (12.0-15.0)
[2017-03-24 12:27] LABS: APTT 37.7 SEC (23.0-38.0)
[2017-03-24] MEDS ORDERED: LIDOCAINE 1% 300 MG/30 ML SDV ONE (13:30)
[2017-03-24 15:27] LABS: CSF APPEARANCE CLEAR (CLEAR); CSF COLOR COLORLESS (COLORLESS); CSF SUPERNATANT COLORLESS (COLORLESS); WBC, CSF 135 /mm3 (0-5)
[2017-03-24 15:44] LABS: ANION GAP 10 mEq/L (8-16); CALCIUM 7.9 mg/dL (8.5-10.4); CARBON DIOXIDE 19 mEq/l (22-31); CHLORIDE 91 mEq/L (97-110); CREATININE 0.8 mg/dL (0.7-1.3); GLOMERULAR FILTRATION RATE > 60; GLUCOSE 105 mg/dL (70-100); POTASSIUM 4.4 mEq/L (3.5-5.2); SODIUM 120 mEq/L (134-144)
[2017-03-24] MEDS ORDERED: SODIUM Cl 3% 100 ML IV ONE (16:30)
--- NOTE | 2017-03-24 16:32 | SOAPPROG ---
SOAP Progress Note Assessment/Plan: Assessment: 1.) Change in MS could be due to Carcinomatous Meningitis, and less likely due to Hyponatremia. Both CT and MRI of brain do not explain change in MS. D/W his SO who is MPOA at length at the bedside today. 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 Oral regimen for Melanoma on hold since patient cannot safely swallow meds. 3.) Hyponatremia in a euvolemic state. Suspect dilutional effect from IVF and little po intake. Could also be exaggerated due to drug effect. Pt. to get NS IVF and to repeat labs, serially. 4.) Drug fever noted and very common adverse effect seen with his oral Melanoma regimen. Plan: CSF exam to be ordered via IR dept with Image guided LP for standard studies and for CSF cytology. Change IVF to NS and follow labs and MS and VS. See above plan. Would with hold the Mekinist 2 mg today if it cannot be divided into a 1 mg dose. Continue reduced dose of Dabrafenib. Continue supportive meds and follow sx. and 03/24/17 10:21 Addendum: 1.) Possible Meningitis- viral/bacterial/carcinomatous. 2.) Hyponatremia not improved. Plan: ID consult to advise on empiric Abx. regimen Renal consult to advise on management of Hyponatremia. Transfer to second floor for further monitoring , and Na+ monitoring/managing. Discussed situation with his ex- who is in the room at this time. See orders. Tx coordinated with Consultants and Hospitalist service. 03/24/17 16:27 Subjective: This is an addendum from today, due to new developments this afternoon. Objective: Pt has had LP this afternoon. His CSF shows (+) 135 WBC, glu 49, with gram stain NOS. Cytology and other studies pending. His repeat serum Na+ is 120 this afternoon. Vital Signs Temp Pulse Resp BP Pulse Ox 38.4 C H 90 20 136/81 H 95 03/24/17 15:40 03/24/17 15:40 03/24/17 15:40 03/24/17 15:40 03/24/17 15:40 Microbiology 03/24/17 10:12 Gram Stain - Final Cerebral Spinal Fluid Laboratory Results 03/24/17 04:10 03/24/17 14:57 03/23/17 03/24/17 03/25/17 05:59 05:59 05:59 Intake Total 2205 Output Total 1950 350 Balance 255 -350 PT 14.9 SEC (12.0-15.0) 03/24/17 12:05 INR 1.17 (0.83-1.16) H 03/24/17 12:05 ICD10 Worksheet Patient Problems: Problems Problem Status Onset Metastatic melanoma Acute Fever Acute Pathologic cervical vertebral fracture Acute
[2017-03-24 16:45] LABS: PROTEIN, CSF 512 mg/dL (12-60)
[2017-03-24] MEDS ORDERED: ALTEPLASE 2 MG VIAL IVP PRN (16:50)
[2017-03-24] MEDS ORDERED: AMPICILLIN SODIUM 2 GM in NS 100 ML IV SCH (17:00)
[2017-03-24] MEDS ORDERED: VANCOMYCIN HCL/NORMAL SALINE 250 ML IV SCH (18:00)
[2017-03-24] MEDS ORDERED: ACYCLOVIR 600 MG in D5W 100 ML IV SCH (18:30)
[2017-03-24] MEDS: ACYCLOVIR IV SCH (19:49)
[2017-03-24] MEDS: D5W IV SCH (19:49)
[2017-03-24] MEDS ORDERED: cefTRIAXone 2 GM in D5W 50 ML IV SCH (21:00)
--- NOTE | 2017-03-24 21:38 | GCON ---
[f rep st] CONSULTATION INFECTIOUS DISEASE CONSULTATION DATE OF CONSULTATION: 03/24/2017 REFERRING PHYSICIAN: Warren Partida MD REASON FOR CONSULTATION: Meningitis. HISTORY OF PRESENT ILLNESS: The patient is a 61-year-old male with a past medical history of metastatic melanoma on therapy with dabrafenib and Mekinist, whom I am asked to see in consultation for fever with CSF findings of meningitis. The patient was hospitalized recently from 03/13/2017, through , with fever. His chemotherapeutic agents in combination have high rates of fever as side effect. At that time, evaluation included blood cultures , which were negative. Fever was felt to be drug induced and patient was discharged home; however, he subsequently experienced recurrent fever and low blood pressure. Initial treatment was conservative, but when the hypotension persisted, he was advised to seek care in the emergency department. At that time, symptoms included primarily fever, weakness, and hypotension. Blood cultures were obtained and have remained no growth. Over the last 2 days, the patient developed increasing confusion and underwent imaging with MRI of the brain yesterday. MRI revealed findings felt to be consistent with hemorrhagic metastatic melanoma. Earlier today, the patient underwent lumbar puncture yielding 14 mL of clear spinal fluid. CSF shows 135 white blood cells with 21% neutrophils, 67% lymphocytes, glucose 49, and protein 512. The patient has been noted to have persistent confusion, which is primarily exemplified by inability to speak as well and decreased interaction. This p.m., he is noted to have some increasing interaction and was felt to have recognized a friend. He has continued to have fever. His white blood cell count is currently normal. He has concomitant hyponatremia with sodium of 120. The patient has worked in [employer] in the past. In discussion with his , she notes they did have hot dogs in the last week or 2. These were cooked in a joseph with simmering water. He does not eat any unpasteurized cheeses or dairy products. No known mosquito exposure. Given the above findings, I am now asked to assist in his ongoing management. PAST MEDICAL HISTORY: Metastatic melanoma including metastases to the spine, liver, adrenal, muscle, adipose, and brain, cold sores. PAST SURGICAL HISTORY: Cervical spinal fusion for pathologic fracture on 2016. CURRENT MEDICATIONS: Ampicillin 2 g IV q.4 hours, ceftriaxone 2 g IV q.12 hours , vancomycin 1 g IV q.12 hours, Lovenox 40 mg subcu daily, Duragesic patch 50 mcg applied q.72 hours, Proscar 5 mg p.o. at bedtime, Neurontin 600 mg p.o. three times daily, Robaxin 750 mg p.o. four times daily as needed, methylprednisolone 40 mg IV twice daily, dabrafenib 75 mg POB, which is now held. ALLERGIES: No known drug allergies. SOCIAL HISTORY: Patient is a former smoker. Worked in [employer], although no recent working. No alcohol or drug use noted. FAMILY HISTORY: Cannot be obtained currently, but in the history and physical, noted that mother had skin cancer. REVIEW OF SYSTEMS: Outside that noted in the HPI, remainder of 10-system review was unremarkable or unobtainable. PHYSICAL EXAMINATION: VITAL SIGNS: Temperature maximum 38.4, temperature current 36.6, heart rate 97, respiratory rate 19, blood pressure 137/93, oxygen saturation 95% on room air. GENERAL: Patient is awake and able to follow some simple commands but is not verbalizing. He appears nontoxic. HEENT: There is no scleral icterus, conjunctival injection, or conjunctival petechiae. Oropharynx shows no herpetic lesions. Mucous membranes are dry. No tenderness over the sinuses. NECK: C-collar is in place. CHEST: Clear to auscultation bilaterally without adventitious sounds. The respiratory effort is normal. CARDIOVASCULAR: Regular rate and rhythm without murmurs, gallops, or rubs. ABDOMEN: Soft, nontender, nondistended. There is no palpable organomegaly. MUSCULOSKELETAL: No cyanosis, clubbing, or edema. SKIN: No stigmata of endocarditis. No rash is noted. Skin is diffusely warm to palpation. NEUROLOGIC: Patient is awake and follows simple commands such as trying to squeeze fingers; he is unable to verbalize directly; he does have some nonpurposeful movements of the upper extremities bilaterally. LYMPHATICS: No cervical or supraclavicular nodes palpable. LABORATORY AND X-RAY DATA: White blood cell count 5.2, hematocrit 30.0, platelets 406, neutrophils 76%. Serum creatinine 0.8. Urinalysis with 1-3 red blood cells and 1-3 white blood cells. CSF showing 135 white blood cells, 31 red blood cells, 21% neutrophils, 67% lymphocytes, 12% monocytes, glucose 49, protein 512. Blood cultures x2 sets are negative. CSF Gram stain shows 1+ white blood cells and 1+ mononuclear cells with no organisms. Urine culture shows 10-20,000 enterococcus species. MRI of the brain as outlined in the history of present illness. Chest x-ray shows no acute abnormalities. IMPRESSION: Meningitis in patient with ongoing immunosuppression for metastatic melanoma: Cerebrospinal fluid profile shows lymphocyte predominance with a significant increase in protein and mild decrease in glucose. These findings are most compatible with either viral etiology, fungal etiology, or carcinomatous meningitis. Think bacterial meningitis is less likely based on the above cell count and differential. Viral etiologies of consideration would include herpes simplex virus, varicella-zoster virus, or West Nile virus. He did have recent exposure to hot dogs raising possibility of listeria, although I think this will be unlikely based on current cerebrospinal fluid profile. Carcinomatosis meningitis remains distinct consideration. Parameningeal focus related to C-spine fusion also of consideration although suspect will be less likely. RECOMMENDATIONS: 1. Acyclovir 10 mg/kg IV q.8 hours. 2. Will discontinue ampicillin, vancomycin, ceftriaxone, and observe off antibacterials. 3. Await CSF cytology. 4. Check CSF, HSV, and VZV PCR. 5. Check CSF West Nile virus PCR. 6. Check serum West Nile virus antibodies. 7. Check CSF cryptococcal antigen. Thank you for this consultation. We will continue to follow the patient with you. /[id number]/MODL MTDD
[2017-03-24] MEDS: fentaNYL 50 MCG PATCH TD SCH (21:44)
--- NOTE | 2017-03-24 21:53 | GCON ---
[f rep st] CONSULTATION DATE OF CONSULTATION: 03/24/2017 REASON FOR CONSULTATION: Evaluation and management of hyponatremia. HISTORY OF PRESENT ILLNESS: The patient is a 61-year-old gentleman, with a history of metastatic ma lignant melanoma with metastatic disease to the liver, bone, brain, fat, adrenals, and muscle. He i s on oral chemotherapy including Mekinist and dabrafenib, with reasonably good results of decreasing his tumor burden, particularly his cutaneous tumor burden. The patient was in his usual state of h ealth until several days ago when he began having fevers up to 104 degrees. He came to the emergenc y department on 03/21/2017 and was noted to be hypotensive with a systolic blood pressure in the 60s . He was given intravenous fluids and on admission, his blood pressure was 114/73. His blood press ures have stayed quite reasonable throughout the remainder of his hospital stay. Today, he became p rogressively more obtunded and less communicative. MRI of the brain showed hemorrhagic metastatic m elanoma deposits throughout. He underwent lumbar puncture. He had 135 WBCs, lymphocytes 67%, and n eutrophils 21%. His protein was 512 and glucose 49. Over the course of his hospital stay, we have seen his serum sodium decrease from 129 on admission up to 131 on the . Today at 3 o'clock, it was 120. The patient has been receiving half-normal saline infusion and subsequently was switched t o normal saline without improvement. The patient is essentially not communicative this afternoon. PAST MEDICAL HISTORY: Significant for: 1. Stage IV malignant melanoma. 2. Drug fever. CURRENT MEDICATIONS: Include: 1. Tylenol. 2. Proventil. 3. Ampicillin 2 g IV every 4 hours. 4. Dulcolax. 5. Rocephin 2 g every 12 hours. 6. Lovenox. 7. Duragesic. 8. Proscar. 9. Neurontin. 10. Lactulose. 11. Robaxin 750 mg 4 times daily. 12. Methylprednisolone 40 mg IV twice daily. 13. Morphine. 14. Zofran. 15. Oxycodone. 16. Compazine. 17. Vancomycin 1 g IV every 12 hours. 18. Ambien. ALLERGIES: None. FAMILY HISTORY: Positive for cancer. SOCIAL HISTORY: He has a 20-30 pack-year history of tobacco. He is and has a significant other. 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 He does not use IV or recreational drugs. REVIEW OF SYSTEMS: Not obtainable from the patient. PHYSICAL EXAMINATION: VITAL SIGNS: Blood pressure 136/81, pulse 90, respirations 20, temperature 3 8.4 degrees. Urine output has been 1950 cc yesterday. GENERAL: He is essentially obtunded, but he will open his eyes to his name. He does not answer questions. HEENT: Pupils are reactive to ligh t. Mucous membranes are moist. NECK: No lymphadenopathy. HEART: Regular. No rub. LUNGS: Poor inspiratory effort. No rhonchi or wheezes. ABDOMEN: Bowel sounds are positive. Nontender. EXTR EMITIES: No edema. NEUROLOGIC: Obtunded. MUSCULOSKELETAL: No effusions or tenderness. LABORATORY: Serum sodium 120, potassium 4.4, chloride 91, CO2 19, BUN 12, creatinine 0.8, glucose 1 05, calcium 7.9. Urine sodium 195. Urine osmolality 676. UA: Specific gravity 1.013, pH 6, negat lawrence protein, negative blood. He did have an LP today. WBCs were elevated at 135, 21% neutrophils, 67% lymphs, glucose 49, and total protein 512. His WBCs were 5.2, hemoglobin 10.2, hematocrit 30, a nd platelet count 406,000. INR of 1.17. IMPRESSION: 1. Hyponatremia, which is symptomatic. 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 His oral chemotherapy 25% to 50% of the time does cause hyponatremia as well. 2. Metastatic malignant melanoma to the central nervous system, liver, bone, fat, adrenals, and mus dom. 3. Drug fever. 4. Meningitis, possibly drug-induced, possibly viral or bacterial. 5. Mental status changes with obtundation. He is not communicative. RECOMMENDATIONS: 1. The patient will be moving to the step-down ICU. 2. Frequent sodium checks every 2 hours. 3. We will give 100 cc of 3% sodium chloride x1 and follow his sodiums. 4. Fluid restrict to less than 1200 cc per day. 5. He is unable to take oral, so we may need to give the 3% several times a day to help bring up hi s sodium. 6. I have discussed this with Oncology as well as Infectious Disease, with Dr. Jesus Kevin of infecti ous disease and Dr. Toledo in oncology. Thank you for allowing me to participate in the care of your patient. If there are any questions, gopi barrett do not hesitate to contact me. I am following along with you. /[id number]/MODL
[2017-03-24] MEDS: FINASTERIDE 5 MG TAB PO SCH (22:55)
[2017-03-25] MEDS: ACYCLOVIR IV SCH ×3 (02:55→18:04)
[2017-03-25] MEDS: D5W IV SCH ×3 (02:55→18:04)
[2017-03-25] MEDS ORDERED: SODIUM Cl 3% 50 ML IV ONE (04:30)
[2017-03-25 04:43] LABS: ANION GAP 12 mEq/L (8-16); CALCIUM 8.3 mg/dL (8.5-10.4); CARBON DIOXIDE 17 mEq/l (22-31); CHLORIDE 97 mEq/L (97-110); CREATININE 0.8 mg/dL (0.7-1.3); GLOMERULAR FILTRATION RATE > 60; GLUCOSE 155 mg/dL (70-100); POTASSIUM 4.6 mEq/L (3.5-5.2); SODIUM 126 mEq/L (134-144)
[2017-03-25 04:53] LABS: % IMMATURE GRANULYOCYTES 0.4 % (0.0-1.1); ABSOLUTE IMMATURE GRANULOCYTES 0.02 10^3/uL (0.00-0.10); ADD DIFF? NO; ADD MORPH? NO; ADD SCAN? NO; ATYPICAL LYMPHOCYTE FLAG 0 (0-99); FRAGMENT RBC FLAG 0 (0-99); HEMATOCRIT 28.7 % (40.0-51.0); HEMOGLOBIN 9.9 g/dL (13.7-17.5); LEFT SHIFT FLG 0 (0-99); LIPEMIA HEMOLYSIS FLAG 90 (0-99); MEAN CELL HEMOGLOBIN 28.9 pg (27.9-34.1); MEAN CELL HEMOGLOBIN CONCENTR. 34.5 g/dL (32.4-36.7); MEAN CELL VOLUME 83.7 fL (81.5-99.8); MEAN PLATELET VOLUME 8.3 fL (8.7-11.7); PLATELET CLUMPS FLAG 10 (0-99); PLATELET COUNT 471 10^3/uL (150-400); RED BLOOD CELL COUNT 3.43 10^6/uL (4.40-6.38)
--- NOTE | 2017-03-25 08:36 | PCMIDPN ---
Assessment/Plan: # Fever, AMS, lymphocytic meningitis - with markedly elevated protein. Patient' s mentation is improved today. Differential diagnosis includes viral meningitis (HSV, VZV, CMV, enterovirus, West Nile, etc), paraspinal abscess - C -spine, fungal meningitis, and malignancy. Doubt bacterial meningitis. MRI only shows metastatic melanoma -- ordered cytology -- continue acyclovir, creatinine 0.8 an ANC 3600 -- with clinical improvement today will hold off on additional testing such as MRI of the C-spine, CMV and enterovirus PCR -- Continue daily creatinine and CBC with diff # malignant melanoma on directed chemotherapy agents with minimal immunologic effect # hyponatremia slowly improved medications acyclovir 650 mg IV Q 8, #1 microbiology 03/21 blood cultures (2 sets): NGTD 03/24 CSF: Gram stain negative Subjective: Answering simple questions slowly mild neck pain, mild KEITH. Neck pain trajectory seems to be within expected post op course Objective: Vital Signs Temp Pulse Resp BP Pulse Ox 36.8 C 97 16 116/68 94 03/25/17 06:00 03/25/17 06:00 03/25/17 06:00 03/25/17 06:00 03/25/17 06:00 Microbiology 03/24/17 10:12 Gram Stain - Final Cerebral Spinal Fluid Laboratory Results 03/25/17 04:15 03/24/17 03/25/17 03/26/17 05:59 05:59 05:59 Intake Total 2205 400 Output Total 1950 3100 Balance 255 -2700 - Physical Exam General Appearance: alert, no apparent distress EENT: pale conjunctiva, dry mucous membranes, No scleral icterus Respiratory: lungs clear, No accessory muscle use Neck: other (anterior incision healed; posterior cervical incision, small amount of swelling no erythema, incision healed, no drainage) Cardiac/Chest: regular rate, rhythm Extremities: No pedal edema Abdomen: normal bowel sounds, non-tender, soft Skin: No rash Neuro/Psych: no motor/sensory deficits, alert, cognition abnormalities, disoriented to place, disoriented to time, depressed affect, other (following commands, identifies GF, ), No abnormal CN, No facial droop - Line/s RUE PICC Lines: No drainage, No erythema ICD10 Worksheet Patient Problems: Problems Problem Status Onset Metastatic melanoma Acute Fever Acute Pathologic cervical vertebral fracture Acute
[2017-03-25 08:44] LABS: ALBUMIN 3.4 g/dL (3.5-5.0); BILIRUBIN,TOTAL 0.6 mg/dL (0.1-1.4); BILIRUBIN-CONJUGATED 0.5 mg/dL (0.0-0.5); BILIRUBIN-UNCONJUGATED 0.1 mg/dL (0.0-1.1); TOTAL PROTEIN 6.4 g/dL (6.3-8.2)
[2017-03-25] MEDS: ACETAMINOPHEN 500 MG TAB PO PRN (09:05)
[2017-03-25] MEDS: methylPREDNISolone SOD SUCC 40 MG/ML VIAL IVP SCH ×2 (09:06→21:14)
[2017-03-25] MEDS: GABAPENTIN 300 MG CAP PO SCH ×3 (09:06→21:14)
[2017-03-25] MEDS: SENNOSIDES/DOCUSATE SODIUM TAB PO SCH ×2 (09:06→21:17)
[2017-03-25] MEDS: oxyCODONE IR 5 MG TAB PO PRN ×2 (09:50→13:52)
[2017-03-25] MEDS: DABRAFENIB MESYLATE 75 MG PO SCH ×2 (10:41→20:19)
--- NOTE | 2017-03-25 11:20 | SOAPPROG ---
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 He is markedly improved today with the improvement in his hyponatremia today. 2.) Stage IV Malignant Melanoma with [id number] mutation (+) status, showing good clinical response to the two drug regimen of Dabrafenib + Mekinist, but with marked adverse effects of Mekinist with Temp > 104, and hypotension thus far necessitating two hospitalizations. Will withhold Dabrafenib + Mekinist today, so as to avoid new fever spike which would confuse clinical evaluation. D /W Dirk and staff nuclear weapons officer and his SO. 3.) Hemorrhagic brain lesions less likely to be contributing to acute MARINE ENGINE DRIVER effect. To follow 4.) Drug fever noted and very common adverse effect seen with his oral Melanoma regimen. 5.) Tx planning: If Chuck has CSF (+) cytology, this would be an ominous finding. Would ask Dr. Avery's input as to management if CSF is (+). 6.) If stable, return to [address] [place] [address] as soon as later today. Plan: See above. Appreciate ID management. Continue IV Acyclovir. Appreciate Nephrology management. 03/25/17 11:20 Subjective: C/o mild frontal headache, but now fully alert and appropriate. His SO is at the bedside. Objective: Chuck is awake and comfortable in a bedside chair, in NAD, aware of surroundings and conversant VSS, Afebrile HEENT- no facial assymetry, no oral lesions, PERRLA, anicteric Neck- in collar Chest- clear anteriorly, bilaterally CVS- RSR, no extra HS ABD- soft, NT, BS+, no mass, ascites, or HSM EXT- no edema, skin intact Labs: Na+ up to 128, CSF cytology pending, other CSF studies pending beyond yesterday's reports CBC as noted here. Vital Signs Temp Pulse Resp BP Pulse Ox 36.6 C 82 16 125/85 H 95 03/25/17 08:00 03/25/17 10:00 03/25/17 10:00 03/25/17 10:00 03/25/17 10:00 Microbiology 03/24/17 10:12 Gram Stain - Final Cerebral Spinal Fluid Laboratory Results 03/25/17 04:15 03/24/17 03/25/17 03/26/17 05:59 05:59 05:59 Intake Total 2205 400 Output Total 1950 3100 100 Balance 255 -2700 -100 PT 14.9 SEC (12.0-15.0) 03/24/17 12:05 INR 1.17 (0.83-1.16) H 03/24/17 12:05 ICD10 Worksheet Patient Problems: Problems Problem Status Onset Metastatic melanoma Acute Fever Acute Pathologic cervical vertebral fracture Acute
--- NOTE | 2017-03-25 12:08 | SOAPPROG ---
SOAP Progress Note Assessment/Plan: Assessment: hyponatremia better with 3% saline mental status MUCH better today able to swallow Plan: start lasix and NaCl tabs continue to monitor Na closely 03/25/17 12:05 Subjective: spirits good significant other at bedside no cp sob nausea Objective: Vital Signs Temp Pulse Resp BP Pulse Ox 36.6 C 82 16 125/85 H 95 03/25/17 08:00 03/25/17 10:00 03/25/17 10:00 03/25/17 10:00 03/25/17 10:00 Microbiology 03/24/17 10:12 Gram Stain - Final Cerebral Spinal Fluid Laboratory Results 03/25/17 04:15 03/25/17 10:58 03/24/17 03/25/17 03/26/17 05:59 05:59 05:59 Intake Total 2205 400 Output Total 1950 3100 100 Balance 255 -2700 -100 PT 14.9 SEC (12.0-15.0) 03/24/17 12:05 INR 1.17 (0.83-1.16) H 03/24/17 12:05 Physical Exam - Physical Exam General Appearance: alert, thin Respiratory: No rales, No rhonchi, No wheezing Cardiac/Chest: regular rate, rhythm, No edema, No friction rub Abdomen: normal bowel sounds, non-tender, soft Extremities: No swelling Neuro/Psych: alert, normal mood/affect, oriented x 3 ICD10 Worksheet Patient Problems: Problems Problem Status Onset Metastatic melanoma Acute Fever Acute Pathologic cervical vertebral fracture Acute
[2017-03-25] MEDS: SODIUM CHLORIDE 1,000 MG TAB PO SCH ×2 (13:51→18:03)
[2017-03-25] MEDS: FUROSEMIDE 20 MG TAB PO SCH ×3 (13:52→23:45)
--- NOTE | 2017-03-25 15:52 | HOSPPROG ---
Hospitalist Progress Note Assessment/Plan: 61 yo with malignant melenoma, widely metatstatic, admitted for most likely drug fever due to chemotherapy * fever * Probably related to chemotherapy. This is a common side effect. * Blood cultures have been negative during this hospitalization and previous * However get LP due to altered mental status and continued fever * On steroids for the drug fever * afebrile last 24 hours * new headache * MRI of the brain shows probable improvement of previous metastases with some hemorrhagic changes * LP will be done today to evaluate for infection or carcinomatosis in the CSF * csf w no evidence of bacterial meningitis; on acv * hyponatremia * This could account for his encephalopathy * started on 3% * appreciate renal assistance * acute encephalopathy * Started yesterday * Possibly due to hyponatremia * as above * * 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, skin, liver, bone * recent C3 pathologic fracture in [place] collar * Status post recent surgery * DVT prophylaxis * SCDs * Holding Lovenox Subjective: case d/w dr hawkins Objective: Vital Signs Temp Pulse Resp BP Pulse Ox 36.6 C 75 10 L 107/77 95 03/25/17 12:00 03/25/17 14:00 03/25/17 14:00 03/25/17 14:00 03/25/17 14:00 Microbiology 03/24/17 10:12 Gram Stain - Final Cerebral Spinal Fluid Laboratory Results 03/25/17 04:15 03/25/17 15:10 03/24/17 03/25/17 03/26/17 05:59 05:59 05:59 Intake Total 2205 400 Output Total 1950 3100 100 Balance 255 -2700 -100 PT 14.9 SEC (12.0-15.0) 03/24/17 12:05 INR 1.17 (0.83-1.16) H 03/24/17 12:05 - Physical Exam Constitutional: no apparent distress, other (somnolent but arousable) Eyes: PERRL Ears, Nose, Mouth, Throat: moist mucous membranes Cardiovascular: regular rate and rhythym, no murmur, rub, or gallop Respiratory: no respiratory distress, no rales or rhonchi Gastrointestinal: normoactive bowel sounds, soft, non-tender abdomen, no palpable masses Genitourinary: no bladder fullness, watson in urethra Skin: warm, normal color Musculoskeletal: full muscle strength, no muscle tenderness Neurologic: AAOx3, sensation intact bilaterally Psychiatric: interacting appropriately, not anxious Lymph, Heme, Immunologic: no cervical LAD ICD10 Worksheet Patient Problems: Problems Problem Status Onset Metastatic melanoma Acute Fever Acute Pathologic cervical vertebral fracture Acute
[2017-03-25] MEDS ORDERED: SODIUM CHLORIDE 1,000 MG TAB PO SCH (18:00)
[2017-03-25] MEDS ORDERED: FUROSEMIDE 20 MG TAB PO SCH (18:00)
[2017-03-25] MEDS: FINASTERIDE 5 MG TAB PO SCH (21:14)
[2017-03-25 22:01] LABS: SPECIMEN SOURCE CSF; VARICELLA ZOSTER NEGATIVE (Negative)
[2017-03-25 22:15] LABS: INTERPRETATION See Comments; MISCELLANEOUS TEST See Comments; WEST NILE VIRUS IGG Negative (Negative); WEST NILE VIRUS IGM Negative (Negative)
[2017-03-25 22:51] LABS: HSV 1 PCR, CSF Negative (Negative); HSV 2 PCR, CSF Negative (Negative)
[2017-03-26] MEDS: ACYCLOVIR IV SCH (02:29)
[2017-03-26] MEDS: D5W IV SCH (02:29)
[2017-03-26] MEDS: FUROSEMIDE 20 MG TAB PO SCH ×4 (06:04→23:07)
--- NOTE | 2017-03-26 09:03 | SOAPPROG ---
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 He is markedly improved today with the improvement in his hyponatremia today. To continue on Salt tablets, salty foods and to limit free water in daily intake. Reviewed with patient this AM. 2.) Stage IV Malignant Melanoma with [id number] mutation (+) status, showing good clinical response to the two drug regimen of Dabrafenib + Mekinist, but with marked adverse effects of Mekinist with Temp > 104, and hypotension thus far necessitating two hospitalizations. Will restart Dabrafenib + Mekinist (1mg ) today, and monitor for adverse effects of Tx, including expected fever. 3.) Hemorrhagic brain lesions less likely to be contributing to acute TRADE CLERK effect. To follow 4.) Continue analgesic needs PRN. 5.) Tx planning: If Dirk has CSF (+) cytology, this would be an ominous finding. Would ask Dr. Avery's input as to management if CSF is (+). 6.) Discharge planning: dependent on Mental Status, Na+, and if CSF is (+) for malignant Melanoma. To continue on Dabrafenib at reduced dose and Mekinist at new reduced dose of 1 mg/D with new Rx. Pt to be cared for by his Significant Other, Kimberly who is spending considerable time at the bedside, involved in his care. Plan: See above. Appreciate ID management. Continue IV Acyclovir. Appreciate Nephrology management. 03/26/17 09:03 Subjective: pt reports no active TRADE CLERK sx. and had stable night. No new sx. Objective: Alert, conversant, and in NAD. Walked with PT help from bed to bedside chair Afebrile, VSS HEENT- no facial assymetry, anicteric, no oral lesions Neck- fixed collar in position Chest- clear CVS- RSR, no extra HS ABD- soft, NT, BS+, no mass, ascites or HSM EXT- no edema alert, conversant, mentally intact, moves all 4 extremities purposefully, with normal motor ability Na+ 126 this AM. CSF cytology to be reported later today. Called lab to discuss earlier this AM. CSF viral studies are neg. thus far. Vital Signs Temp Pulse Resp BP Pulse Ox 35.5 C L 87 17 127/75 H 97 03/26/17 00:00 03/26/17 00:00 03/26/17 00:00 03/26/17 00:00 03/26/17 00:00 Microbiology 03/24/17 10:12 Gram Stain - Final Cerebral Spinal Fluid Laboratory Results 03/25/17 04:15 03/26/17 03:55 03/25/17 03/26/17 03/27/17 05:59 05:59 05:59 Intake Total 400 1614 Output Total 3100 1700 Balance -2700 -86 PT 14.9 SEC (12.0-15.0) 03/24/17 12:05 INR 1.17 (0.83-1.16) H 03/24/17 12:05 ICD10 Worksheet Patient Problems: Problems Problem Status Onset Metastatic melanoma Acute Fever Acute Pathologic cervical vertebral fracture Acute
[2017-03-26] MEDS ORDERED: MEKINIST PO SCH (09:30)
[2017-03-26] MEDS: DABRAFENIB MESYLATE 75 MG PO SCH ×2 (09:40→19:59)
--- NOTE | 2017-03-26 09:46 | SOAPPROG ---
SOAP Progress Note Assessment/Plan: Assessment/Plan: Hyponatremia: likely due to SIADH, possibly due to MANAGER IMMUNOLOGY metastatic disease vs meningitis vs chemotherapy. Na was up to 130 yesterday, this am i 126. - Will further fluid restrict to 1200ml. - Will continue salt tabs and Lasix. - Will continue to monitor sodium q8h for now. Anemia: Hgb stable at 9.9, will continue to monitor. Subjective: No acute events overnight. Pt notes that he is feeling a bit clearer today, oriented x3, notes his thinking is better today but still with a little confusion on and off. Objective: Vital Signs Temp Pulse Resp BP Pulse Ox 36.3 C 87 16 125/82 H 98 03/26/17 08:00 03/26/17 08:00 03/26/17 08:00 03/26/17 08:00 03/26/17 08:00 Microbiology 03/24/17 10:12 Gram Stain - Final Cerebral Spinal Fluid Laboratory Results 03/25/17 04:15 03/26/17 03:55 03/25/17 03/26/17 03/27/17 05:59 05:59 05:59 Intake Total 400 1614 Output Total 3100 1700 Balance -2700 -86 PT 14.9 SEC (12.0-15.0) 03/24/17 12:05 INR 1.17 (0.83-1.16) H 03/24/17 12:05 General: alert and oriented, no acute distress Eyes; EOMI, PERRL Neck: in brace CV: RRR Resp: nonlabored respirations Abd; Soft, ND Ext: no edema Neuro: CN II-XII grossly intact, no asterixis Psych: cooperative, appropriate mood and affect ICD10 Worksheet Patient Problems: Problems Problem Status Onset Metastatic melanoma Acute Fever Acute Pathologic cervical vertebral fracture Acute
[2017-03-26] MEDS: SODIUM CHLORIDE 1,000 MG TAB PO SCH ×3 (09:57→18:22)
--- NOTE | 2017-03-26 10:20 | PCMIDPN ---
Assessment/Plan: # Fever, AMS, lymphocytic meningitis - with markedly elevated protein. Last fever 03/24. Back to baseline mentation. HypoNa may have been driving AMS. suspicious for carcinomatosis meningitis . Fever may have been related to chemotherapy. --dc acyclovir --enterovirus pcr pending; doubt CMV with significant clinical improvement without specific intervention --CSF path pending # malignant melanoma on directed chemotherapy agents with minimal immunologic effect # hyponatremia continued to be improved. medications acyclovir 650 mg IV Q 8, #2 microbiology 03/21 blood cultures (2 sets): NGTD 03/24 CSF: Gram stain negative; Cx NGTD VZV, HSV, WNV negative Crypto An negative Subjective: much more interactive today, sitting up in chair, fluent speech . Denies headache, neck pain, shortness of breath cough, abdominal pain. Objective: Vital Signs Temp Pulse Resp BP Pulse Ox 36.3 C 87 16 125/82 H 98 03/26/17 08:00 03/26/17 08:00 03/26/17 08:00 03/26/17 08:00 03/26/17 08:00 Microbiology 03/24/17 10:12 Gram Stain - Final Cerebral Spinal Fluid Laboratory Results 03/25/17 04:15 03/26/17 03:55 03/25/17 03/26/17 03/27/17 05:59 05:59 05:59 Intake Total 400 1614 Output Total 3100 1700 Balance -2700 -86 General Appearance: alert, no apparent distress EENT: pale conjunctiva, dry mucous membranes, No scleral icterus Respiratory: lungs clear, No accessory muscle use Neck: other (anterior incision healed; posterior cervical incision, small amount of swelling no erythema, incision healed, no drainage) Cardiac/Chest: regular rate, rhythm Extremities: No pedal edema Abdomen: normal bowel sounds, non-tender, soft Skin: No rash Neuro/Psych: no motor/sensory deficits, alert, Mentation back to baseline, No abnormal CN, No facial droop RUE PICC No drainage, No erythema ICD10 Worksheet Patient Problems: Problems Problem Status Onset Metastatic melanoma Acute Fever Acute Pathologic cervical vertebral fracture Acute
[2017-03-26] MEDS: SENNOSIDES/DOCUSATE SODIUM TAB PO SCH ×2 (11:47→20:01)
[2017-03-26] MEDS: GABAPENTIN 300 MG CAP PO SCH ×3 (11:47→20:01)
[2017-03-26] MEDS: methylPREDNISolone SOD SUCC 40 MG/ML VIAL IVP SCH ×2 (11:48→20:00)
[2017-03-26] MEDS: oxyCODONE IR 5 MG TAB PO PRN ×2 (12:24→23:08)
[2017-03-26] MEDS: ACETAMINOPHEN 500 MG TAB PO PRN (12:25)
--- NOTE | 2017-03-26 16:14 | HOSPPROG ---
Hospitalist Progress Note Assessment/Plan: 61 yo with malignant melenoma, widely metatstatic, admitted for most likely drug fever due to chemotherapy * fever * Probably related to chemotherapy. This is a common side effect. 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 more alert. Na improved Objective: Vital Signs Temp Pulse Resp BP Pulse Ox 36.3 C 87 16 125/82 H 98 03/26/17 08:00 03/26/17 08:00 03/26/17 08:00 03/26/17 08:00 03/26/17 08:00 Microbiology 03/24/17 10:12 Gram Stain - Final Cerebral Spinal Fluid Laboratory Results 03/25/17 04:15 03/26/17 09:45 03/25/17 03/26/17 03/27/17 05:59 05:59 05:59 Intake Total 400 1614 Output Total 3100 1700 600 Balance -2700 -86 -600 PT 14.9 SEC (12.0-15.0) 03/24/17 12:05 INR 1.17 (0.83-1.16) H 03/24/17 12:05 - Physical Exam Constitutional: no apparent distress, appears nourished Eyes: PERRL, anicteric sclera Ears, Nose, Mouth, Throat: moist mucous membranes, hearing normal Cardiovascular: regular rate and rhythym, no murmur, rub, or gallop Respiratory: no respiratory distress, no rales or rhonchi Gastrointestinal: normoactive bowel sounds, soft, non-tender abdomen Genitourinary: no bladder fullness, no bladder tenderness Skin: warm, normal color Musculoskeletal: full muscle strength, no muscle tenderness Neurologic: AAOx3 ICD10 Worksheet Patient Problems: Problems Problem Status Onset Metastatic melanoma Acute Fever Acute Pathologic cervical vertebral fracture Acute
--- NOTE | 2017-03-26 17:44 | SOAPPROG ---
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 He is markedly improved today with the improvement in his hyponatremia today. To continue on Salt tablets, salty foods and to limit free water in daily intake. Reviewed with patient this AM. 2.) Stage IV Malignant Melanoma with [id number] mutation (+) status, showing good clinical response to the two drug regimen of Dabrafenib + Mekinist, but with marked adverse effects of Mekinist with Temp > 104, and hypotension thus far necessitating two hospitalizations. Will restart Dabrafenib + Mekinist (1mg ) today, and monitor for adverse effects of Tx, including expected fever. 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 To follow 4.) Continue analgesic needs PRN. 5.) Tx planning: If k has CSF (+) cytology, this would be an ominous finding. Would ask Dr. Avery's input as to management if CSF is (+). 6.) Discharge planning: dependent on Mental Status, Na+, and if CSF is (+) for malignant Melanoma. To continue on Dabrafenib at reduced dose and Mekinist at new reduced dose of 1 mg/D with new Rx. Pt to be cared for by his Significant Other, Kimberly who is spending considerable time at the bedside, involved in his care. Plan: See above. Appreciate ID management. Continue IV Acyclovir. Appreciate Nephrology management. 03/26/17 09:03 ADDENDUM: CSF cytology was neg for melanoma. Suspect CSF findings are due to brain mets from Melanoma with evidence for treatment response on serial MRI findings. 03/26/17 17:43 Subjective: See earlier note today. Objective: See earlier note today. I spoke with Dr. Luis Alfredo Tanner MD today- in Path. Dept. He reviewed the CSF cytology and sees no Melanoma cells. Cells are mostly reactive Lymphs, Monos and a few Neutrophils. Vital Signs Temp Pulse Resp BP Pulse Ox 36.3 C 92 16 130/81 H 95 03/26/17 16:00 03/26/17 16:00 03/26/17 16:00 03/26/17 16:00 03/26/17 16:00 Microbiology 03/24/17 10:12 Gram Stain - Final Cerebral Spinal Fluid Laboratory Results 03/25/17 04:15 03/26/17 09:45 03/25/17 03/26/17 03/27/17 05:59 05:59 05:59 Intake Total 400 1614 Output Total 3100 1700 600 Balance -2700 -86 -600 PT 14.9 SEC (12.0-15.0) 03/24/17 12:05 INR 1.17 (0.83-1.16) H 03/24/17 12:05 ICD10 Worksheet Patient Problems: Problems Problem Status Onset Metastatic melanoma Acute Fever Acute Pathologic cervical vertebral fracture Acute
[2017-03-26] MEDS: ENOXAPARIN 40 MG/0.4 ML SYR SC SCH (18:25)
[2017-03-26] MEDS: MEKINIST PO SCH (19:59)
[2017-03-26] MEDS: FINASTERIDE 5 MG TAB PO SCH (20:00)
[2017-03-27] MEDS: FUROSEMIDE 20 MG TAB PO SCH ×4 (05:17→23:49)
[2017-03-27] MEDS: ACETAMINOPHEN 500 MG TAB PO PRN ×2 (09:33→15:33)
[2017-03-27] MEDS: GABAPENTIN 300 MG CAP PO SCH ×3 (09:34→21:33)
[2017-03-27] MEDS: methylPREDNISolone SOD SUCC 40 MG/ML VIAL IVP SCH (09:37)
[2017-03-27] MEDS: ENOXAPARIN 40 MG/0.4 ML SYR SC SCH (09:37)
[2017-03-27] MEDS: SODIUM CHLORIDE 1,000 MG TAB PO SCH ×3 (09:37→18:32)
[2017-03-27] MEDS: DABRAFENIB MESYLATE 75 MG PO SCH ×2 (09:40→22:24)
[2017-03-27] MEDS: SENNOSIDES/DOCUSATE SODIUM TAB PO SCH ×2 (09:41→21:29)
--- NOTE | 2017-03-27 12:04 | SOAPPROG ---
SOAP Progress Note Assessment/Plan: Assessment: 1) Metastatic melanoma 2) Therapy induced SIADH 3) Low volume brain mets 4) C3 vertebral fx secondary to #1 s/p neurosurgical intervention 5) Drug induced fever (resolved) 6) Confusion secondary to #2 Plan: Patients Dabrafenib and Mekinist have been restarted at 50% dose reduction. He has had an excellent clinical response to this initial therapy. Thus far, no evidence of toxicity at the lower dose. His hyponatremia has responded to fluid restrictions. Appreciate nephrology assistance. I think his SIADH was therapy related, and may not recur at reduced dose. Perhaps his fluid restriction can be liberalized over next few days. His confusion has resolved and appears to have been due to the SIADH and not STATISTICAL GENETICIST disease. His STATISTICAL GENETICIST disease appears to have responded to therapy. I think we can rapidly taper him off steroids. Will d/c methylprednisilone. Will start Prednisone 10 mg PO instead, and plan to taper quickly. Management of recent C3 surgery per neurosurgery. Plan d/w patient and . 03/27/17 11:58 03/27/17 12:04 Subjective: Feels better. Confusion resolved. at bedside. Objective: Vital Signs Temp Pulse Resp BP Pulse Ox 36.4 C 88 16 95/67 L 94 03/27/17 07:51 03/27/17 07:51 03/27/17 07:51 03/27/17 07:51 03/27/17 07:51 Microbiology 03/24/17 10:12 Gram Stain - Final Cerebral Spinal Fluid CSF Culture - Final Laboratory Results 03/25/17 04:15 03/27/17 05:30 03/26/17 03/27/17 03/28/17 05:59 05:59 05:59 Intake Total 1614 2195 Output Total 1700 2250 Balance -86 -55 PT 14.9 SEC (12.0-15.0) 03/24/17 12:05 INR 1.17 (0.83-1.16) H 03/24/17 12:05 - Time Spent With Patient Time Spent With Patient: 30 minutes Physical Exam - Physical Exam General Appearance: alert, no apparent distress, other (In cervical collar) EENT: PERRL/EOMI Respiratory: lungs clear Cardiac/Chest: regular rate, rhythm Abdomen: non-tender, soft Skin: normal color Neuro/Psych: alert, normal mood/affect, oriented x 3 ICD10 Worksheet Patient Problems: Problems Problem Status Onset Metastatic melanoma Acute Fever Acute Pathologic cervical vertebral fracture Acute
[2017-03-27] MEDS: oxyCODONE IR 5 MG TAB PO PRN ×2 (12:33→21:32)
--- NOTE | 2017-03-27 12:59 | SOAPPROG ---
SOAP Progress Note Assessment/Plan: Assessment: 1. Hyponatremia: likely due to SIADH, possibly due to SUPERVISOR EDGING metastatic disease vs meningitis vs chemotherapy. -Na up to 134 today -Can liberalize fluid restriction to 1800ml.(adjusted order to 1500 as 1800 not an option but explained this to pt) -Continue salt tabs and Lasix for now -Continue to monitor sodium q8h for now. 2. Anemia: Hgb stable at 9.9, will continue to monitor. Plan: 03/27/17 12:56 03/27/17 12:59 Subjective: Feels ok. Appetite improving. Objective: Vital Signs Temp Pulse Resp BP Pulse Ox 36.4 C 88 16 95/67 L 94 03/27/17 07:51 03/27/17 07:51 03/27/17 07:51 03/27/17 07:51 03/27/17 07:51 Microbiology 03/24/17 10:12 Gram Stain - Final Cerebral Spinal Fluid CSF Culture - Final Laboratory Results 03/25/17 04:15 03/27/17 05:30 03/26/17 03/27/17 03/28/17 05:59 05:59 05:59 Intake Total 1614 2195 Output Total 1700 2250 150 Balance -86 -55 -150 PT 14.9 SEC (12.0-15.0) 03/24/17 12:05 INR 1.17 (0.83-1.16) H 03/24/17 12:05 Physical Exam - Physical Exam General Appearance: WD/WN, no apparent distress Respiratory: lungs clear Cardiac/Chest: regular rate, rhythm Abdomen: non-tender Extremities: No swelling ICD10 Worksheet Patient Problems: Problems Problem Status Onset Metastatic melanoma Acute Fever Acute Pathologic cervical vertebral fracture Acute
--- NOTE | 2017-03-27 18:06 | PCMIDPN ---
Assessment/Plan: Assessment/Plan: 1. Lymphocytic Meningitis: - multiple infectious studies negative thus far: HSV/VZV, crypto, WNV and CSF cultures -Pending : enteroviral studies and CSF path -Continue to observe off directive antimicrobial therapy -Reviewed lab results with patient. Subjective: Afebrile. FEeling better. denies headache at present. denies vomiting, nausea, diarrhea, sob. Objective: Vital Signs Temp Pulse Resp BP Pulse Ox 36.4 C 95 16 115/81 H 98 03/27/17 15:51 03/27/17 15:51 03/27/17 15:51 03/27/17 15:51 03/27/17 15:51 Microbiology 03/24/17 10:12 Gram Stain - Final Cerebral Spinal Fluid CSF Culture - Final Laboratory Results 03/25/17 04:15 03/27/17 05:30 03/26/17 03/27/17 03/28/17 05:59 05:59 05:59 Intake Total 1614 2195 Output Total 1700 2250 450 Balance -86 -55 -450 - Physical Exam General Appearance: alert, no apparent distress EENT: No thrush Respiratory: lungs clear Neck: other (c- collar) Cardiac/Chest: regular rate, rhythm Extremities: No swelling Abdomen: normal bowel sounds, non-tender, soft, No distended Skin: No erythema ICD10 Worksheet Patient Problems: Problems Problem Status Onset Metastatic melanoma Acute Fever Acute Pathologic cervical vertebral fracture Acute
--- NOTE | 2017-03-27 19:07 | HOSPPROG ---
Hospitalist Progress Note Assessment/Plan: DIAGNOSES: * fever * Probably related to chemotherapy. This is a common side effect. 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, skin, liver, bone * recent C3 pathologic fracture in [place] collar * Status post recent surgery * DVT prophylaxis * SCDs * Holding Lovenox SUBJECTIVE: Feels better overall today, eating well, strength better No Headache No fever symptoms OBJECTIVE Vitals reviewed: stable without fever Exam: alert oriented skin warm dry color ok resps not labored lungs clear BSs heart regular abd soft nondistended nontender, bowel sounds present iv site ok Objective: Vital Signs Temp Pulse Resp BP Pulse Ox 36.4 C 95 16 115/81 H 98 03/27/17 15:51 03/27/17 15:51 03/27/17 15:51 03/27/17 15:51 03/27/17 15:51 Microbiology 03/24/17 10:12 Gram Stain - Final Cerebral Spinal Fluid CSF Culture - Final Laboratory Results 03/25/17 04:15 03/26/17 03/27/17 03/28/17 06:59 06:59 06:59 Intake Total 1614 2195 773 Output Total 1700 2250 750 Balance -86 -55 23 PT 14.9 SEC (12.0-15.0) 03/24/17 12:05 INR 1.17 (0.83-1.16) H 03/24/17 12:05 ICD10 Worksheet Patient Problems: Problems Problem Status Onset Metastatic melanoma Acute Fever Acute Pathologic cervical vertebral fracture Acute
[2017-03-27] MEDS: fentaNYL 50 MCG PATCH TD SCH (21:33)
[2017-03-27] MEDS: MEKINIST PO SCH (22:24)
[2017-03-27 22:45] LABS: ENTEROVIRUS BY PCR Negative (Negative); SPECIMEN SOURCE ENTEROVIRUS CSF
[2017-03-27] MEDS: FINASTERIDE 5 MG TAB PO SCH (23:49)
[2017-03-28] MEDS: FUROSEMIDE 20 MG TAB PO SCH ×3 (05:58→15:00)
--- NOTE | 2017-03-28 08:30 | HOSPPROG ---
Hospitalist Progress Note Assessment/Plan: 1) Metastatic melanoma (low volume brain mets, liver, bone) -restarted chemo at 1/2 dose per heme/onc, tolerating OK so far. Discussed care plan with Dr Pabon, likely dc in AM if continues to do OK, FU as o/p. 2) Therapy induced SIADH -appreciate nephro assistance, change to fluid restriction/diuretic/salt tabs. Na stable. 3) C3 vertebral fx secondary to #1 s/p neurosurgical intervention -has KEITH, not positional, suspect multifactorial (s/p LP, neck spasm, stress) -OK pain and spasm meds prn 4) Drug induced fever (resolved) -ID eval to date neg, neg cultures/serologies -Discussed with Dr Landers, ID sign off -steroids stopped per heme/onc 5) Confusion secondary to #2 (resolved) -revwd care plan with family member, lives in [facility] but planning to stay in area for cancer treatments, suggest finding a PCP in area also * DVT prophylaxis * SCDs/lovenox *PCP- none in area *dispo- hopeful dc in AM Subjective: Sleeping, but arouses easily. Neck pain/KEITH, but denies n/v/abd pain. Family in room also. Objective: Vital Signs Temp Pulse Resp BP Pulse Ox 97.9 F 82 18 92/60 L 97 03/28/17 05:59 03/28/17 05:59 03/28/17 05:59 03/28/17 05:59 03/28/17 05:59 Microbiology 03/24/17 10:12 Gram Stain - Final Cerebral Spinal Fluid CSF Culture - Final Laboratory Results 03/25/17 04:15 03/28/17 00:14 03/26/17 03/27/17 03/28/17 11:59 11:59 11:59 Intake Total 1614 2195 1473 Output Total 1600 2250 1250 Balance 14 -55 223 PT 14.9 SEC (12.0-15.0) 03/24/17 12:05 INR 1.17 (0.83-1.16) H 03/24/17 12:05 - Physical Exam Constitutional: no apparent distress, appears nourished Eyes: PERRL, anicteric sclera, EOMI Ears, Nose, Mouth, Throat: moist mucous membranes Cardiovascular: regular rate and rhythym, no murmur, rub, or gallop Respiratory: no respiratory distress, no rales or rhonchi, clear to auscultation Gastrointestinal: normoactive bowel sounds, soft, non-tender abdomen, no palpable masses Skin: warm, normal color Musculoskeletal: other (c collar in place) Psychiatric: interacting appropriately, not anxious, not encephalopathic, thought process linear ICD10 Worksheet Patient Problems: Problems Problem Status Onset Metastatic melanoma Acute Fever Acute Pathologic cervical vertebral fracture Acute
[2017-03-28] MEDS: DABRAFENIB MESYLATE 75 MG PO SCH ×2 (09:32→22:17)
[2017-03-28] MEDS: oxyCODONE IR 5 MG TAB PO PRN ×2 (09:43→17:11)
[2017-03-28] MEDS: SENNOSIDES/DOCUSATE SODIUM TAB PO SCH ×2 (10:30→23:38)
[2017-03-28] MEDS: GABAPENTIN 300 MG CAP PO SCH ×3 (10:31→23:37)
[2017-03-28] MEDS: ENOXAPARIN 40 MG/0.4 ML SYR SC SCH (10:31)
[2017-03-28] MEDS: SODIUM CHLORIDE 1,000 MG TAB PO SCH ×2 (10:31→14:56)
--- NOTE | 2017-03-28 11:49 | SOAPPROG ---
SOAP Progress Note Assessment/Plan: Assessment: 1) Metastatic melanoma 2) Therapy induced SIADH 3) Low volume brain mets 4) C3 vertebral fx secondary to #1 s/p neurosurgical intervention 5) Drug induced fever (resolved) 6) Confusion secondary to #2 (resolved) Plan: Patients Dabrafenib and Mekinist have been restarted at 50% dose reduction. He has had an excellent clinical response to this initial therapy. Thus far, no evidence of toxicity at the lower dose. His hyponatremia has responded to fluid restrictions. Appreciate nephrology assistance. I think his SIADH was therapy related, and may not recur at reduced dose. His fluid restriction was liberalized to 1800 cc yesterday. I think we could potentially stop it altogether at this point, though I will defer this to nephrology. His confusion has resolved and appears to have been due to the SIADH and not ELECTRICAL ACCESSORIES ASSEMBLER disease. His ELECTRICAL ACCESSORIES ASSEMBLER disease appears to have responded to therapy. I stopped his steroids yesterday, and he has had no further fevers. Management of recent C3 surgery per neurosurgery. He is having a headache / neck ache likely secondary to his cervical collar. He has a PRN muscle relaxant prescribed for this that I have encouraged him to use. He can likely be discharged tomorrow. If he is discharged, we will arrange outpatient Oncology follow up later this week. Plan d/w patient and . Subjective: Feels well overall. Confusion is completely resolved. Having a headache (base of skull extending into neck). at bedside. Objective: Vital Signs Temp Pulse Resp BP Pulse Ox 36.6 C 79 16 103/70 98 03/28/17 08:55 03/28/17 08:55 03/28/17 08:55 03/28/17 08:55 03/28/17 08:55 Microbiology 03/24/17 10:12 Gram Stain - Final Cerebral Spinal Fluid CSF Culture - Final Laboratory Results 03/25/17 04:15 03/28/17 10:28 03/27/17 03/28/17 03/29/17 05:59 05:59 05:59 Intake Total 2195 1473 Output Total 2250 1250 1000 Balance -55 223 -1000 PT 14.9 SEC (12.0-15.0) 03/24/17 12:05 INR 1.17 (0.83-1.16) H 03/24/17 12:05 - Time Spent With Patient Time Spent With Patient: 25 minutes Physical Exam - Physical Exam General Appearance: alert, no apparent distress EENT: PERRL/EOMI Neck: other (In cervical collar) Respiratory: lungs clear Cardiac/Chest: regular rate, rhythm Abdomen: non-tender, soft Neuro/Psych: alert, normal mood/affect ICD10 Worksheet Patient Problems: Problems Problem Status Onset Metastatic melanoma Acute Fever Acute Pathologic cervical vertebral fracture Acute
[2017-03-28] MEDS: METHOCARBAMOL 750 MG TAB PO PRN ×3 (12:13→23:37)
--- NOTE | 2017-03-28 14:48 | SOAPPROG ---
SOAP Progress Note Assessment/Plan: Assessment: 1. Hyponatremia: likely due to SIADH, chemo > PRODUCT SUPPORT REP metastatic disease vs meningitis -Na up to 137 today and stable -Have liberalized fluid restriction to 1800ml.(adjusted order to 1500 as 1800 not an option but explained this to pt) -Reduced salt tabs to 1g daily and adjusted Lasix to 10mg BID -Can decrease sodium checks to daily -May further taper salt tabs/lasix as labs remain normal 2. Anemia: Hgb stable at 9.9, will continue to monitor. Plan: 03/28/17 14:48 Subjective: Resting comfortably. Objective: Vital Signs Temp Pulse Resp BP Pulse Ox 36.6 C 79 16 103/70 98 03/28/17 08:55 03/28/17 08:55 03/28/17 08:55 03/28/17 08:55 03/28/17 11:42 Microbiology 03/24/17 10:12 Gram Stain - Final Cerebral Spinal Fluid CSF Culture - Final Laboratory Results 03/25/17 04:15 03/28/17 10:28 03/27/17 03/28/17 03/29/17 05:59 05:59 05:59 Intake Total 2195 1473 Output Total 2250 1250 1350 Balance -55 223 -1350 PT 14.9 SEC (12.0-15.0) 03/24/17 12:05 INR 1.17 (0.83-1.16) H 03/24/17 12:05 Physical Exam - Physical Exam General Appearance: WD/WN Respiratory: lungs clear Cardiac/Chest: regular rate, rhythm Extremities: No swelling ICD10 Worksheet Patient Problems: Problems Problem Status Onset Metastatic melanoma Acute Fever Acute Pathologic cervical vertebral fracture Acute
[2017-03-28] MEDS ORDERED: FUROSEMIDE 20 MG TAB PO SCH (15:00)
--- NOTE | 2017-03-28 17:44 | PCMIDPN ---
Assessment/Plan: Assessment/Plan: 1. Lymphocytic Meningitis: - multiple infectious studies negative thus far: HSV/VZV, crypto, WNV and CSF cultures, enterovirus negative -Pending : CSF path -Continue to observe off directive antimicrobial therapy -Reviewed lab results with patient. -ID to sign off. please call with questions. Subjective: afebrile. feels better each day. still with headache. denies positional worsening or nausea/vomiting wiht this. denies diarrhea, sob. Objective: Vital Signs Temp Pulse Resp BP Pulse Ox 36.6 C 80 16 105/63 97 03/28/17 15:28 03/28/17 15:28 03/28/17 15:28 03/28/17 15:28 03/28/17 15:28 Laboratory Results 03/25/17 04:15 03/28/17 10:28 03/27/17 03/28/17 03/29/17 05:59 05:59 05:59 Intake Total 2195 1473 1040 Output Total 2250 1250 1950 Balance -55 223 -910 - Physical Exam General Appearance: alert, no apparent distress Respiratory: lungs clear Neck: other (neck collar) Cardiac/Chest: regular rate, rhythm Abdomen: normal bowel sounds, non-tender, soft, No distended ICD10 Worksheet Patient Problems: Problems Problem Status Onset Metastatic melanoma Acute Fever Acute Pathologic cervical vertebral fracture Acute
[2017-03-28] MEDS ORDERED: SODIUM CHLORIDE 1,000 MG TAB PO SCH (18:00)
[2017-03-28] MEDS: MEKINIST PO SCH (22:18)
[2017-03-28] MEDS: FINASTERIDE 5 MG TAB PO SCH (23:38)
[2017-03-29 05:13] VITALS: TEMP 98.1
[2017-03-29 06:58] LABS: HEMATOCRIT 27.4 % (40.0-51.0); HEMOGLOBIN 8.9 g/dL (13.7-17.5); MEAN CELL HEMOGLOBIN CONCENTR. 32.5 g/dL (32.4-36.7); MEAN CELL VOLUME 89.3 fL (81.5-99.8); RED BLOOD CELL COUNT 3.07 10^6/uL (4.40-6.38)
[2017-03-29 07:16] LABS: ALANINE AMINOTRANSFERASE 39 IU/L (21-72); ALBUMIN 2.9 g/dL (3.5-5.0); ALKALINE PHOSPHATASE 88 IU/L (38-126); ANION GAP 8 mEq/L (8-16); ASPARTATE AMINOTRANSFERASE 23 IU/L (17-59); BILIRUBIN,TOTAL 0.3 mg/dL (0.1-1.4); CALCIUM 8.5 mg/dL (8.5-10.4); CARBON DIOXIDE 25 mEq/l (22-31); CHLORIDE 101 mEq/L (97-110); CREATININE 0.8 mg/dL (0.7-1.3); GLOMERULAR FILTRATION RATE > 60; GLUCOSE 89 mg/dL (70-100); POTASSIUM 3.7 mEq/L (3.5-5.2); SODIUM 134 mEq/L (134-144); TOTAL PROTEIN 5.8 g/dL (6.3-8.2)
[2017-03-29 08:55] VITALS: BP 92/63; PULSE 75; RESP 12; O2SAT 97
[2017-03-29] MEDS ORDERED: SODIUM CHLORIDE 1,000 MG TAB PO SCH (09:00)
[2017-03-29] MEDS: DABRAFENIB MESYLATE 75 MG PO SCH (09:03)
--- NOTE | 2017-03-29 10:24 | SOAPPROG ---
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 Na now 134 from 137 yesterday after liberalized fluid restriction and decreasing salt tabs. - Would continue 1800ml fluid restriction for now. - Would continue 1 salt tab daily and BID Lasix. - Would recommend checking sodium again middle of this week and again on Wednesday. - Pt states he would prefer to f/u with oncology, will leave card and pt can f/ u with us at any time if desired. Anemia: Hgb 8.9, will continue to monitor. Subjective: No acute events overnight. Pt states he feels well, has no complaints. He is hoping to be discharged today. Objective: Vital Signs Temp Pulse Resp BP Pulse Ox 36.7 C 75 12 92/63 L 97 03/29/17 08:54 03/29/17 08:54 03/29/17 08:54 03/29/17 08:54 03/29/17 08:54 Laboratory Results 03/29/17 06:45 03/29/17 06:45 03/28/17 03/29/17 03/30/17 05:59 05:59 05:59 Intake Total 1473 1410 Output Total 1250 2300 Balance 223 -890 PT 14.9 SEC (12.0-15.0) 03/24/17 12:05 INR 1.17 (0.83-1.16) H 03/24/17 12:05 General: alert and oriented, no acute distress Eyes EOMI, PERRL OP: clear Neck: in brace CV: RRR Resp: nonlabored respirations Abd; SOft, NT Ext: no edema BLE Neuro: CN II-XII grossly intact, no asterixis Psych: cooperative, appropriate mood and affect ICD10 Worksheet Patient Problems: Problems Problem Status Onset Metastatic melanoma Acute Fever Acute Pathologic cervical vertebral fracture Acute
[2017-03-29] MEDS: ENOXAPARIN 40 MG/0.4 ML SYR SC SCH (11:02)
[2017-03-29] MEDS: FUROSEMIDE 20 MG TAB PO SCH ×2 (11:04→15:23)
[2017-03-29] MEDS: GABAPENTIN 300 MG CAP PO SCH ×2 (11:04→15:23)
[2017-03-29] MEDS: SENNOSIDES/DOCUSATE SODIUM TAB PO SCH (11:06)
[2017-03-29] MEDS: POLYETHYLENE GLYCOL 3350 17 GM PKT PO PRN (11:07)
[2017-03-29] MEDS: ACETAMINOPHEN 500 MG TAB PO PRN (11:15)
[2017-03-29] MEDS: METHOCARBAMOL 750 MG TAB PO PRN (11:15)
--- NOTE | 2017-03-29 11:33 | SOAPPROG ---
SOAP Progress Note Assessment/Plan: E&M for melanoma * Metastatic melanoma, BRAF mutation with bone, brain, abd mets: on Dabrafenib and Mekinist, which was restarted at 50% reduction. Studies showing good response. He is ok to go home and have close follow up with Dr. Avery. * Fever: suspect drug * SIADH: stable but will need to monitor closely with restarting the medication Subjective: Ate breakfast and feeling well without new complaints. with patient. Objective: Vital Signs Temp Pulse Resp BP Pulse Ox 36.7 C 75 12 92/63 L 97 03/29/17 08:54 03/29/17 08:54 03/29/17 08:54 03/29/17 08:54 03/29/17 08:54 Laboratory Results 03/29/17 06:45 03/29/17 06:45 03/28/17 03/29/17 03/30/17 05:59 05:59 05:59 Intake Total 1473 1410 Output Total 1250 2300 450 Balance 223 -890 -450 PT 14.9 SEC (12.0-15.0) 03/24/17 12:05 INR 1.17 (0.83-1.16) H 03/24/17 12:05 Physical Exam - Physical Exam General Appearance: no apparent distress Neck: other (c-collar) Respiratory: lungs clear Cardiac/Chest: regular rate, rhythm Abdomen: normal bowel sounds, non-tender, soft Neuro/Psych: no motor/sensory deficits ICD10 Worksheet Patient Problems: Problems Problem Status Onset Metastatic melanoma Acute Fever Acute Pathologic cervical vertebral fracture Acute
--- NOTE | 2017-03-29 12:34 | PDIAF ---
- Diagnosis Code Status: Full Code - Medication Management Discharge Medications: Medications to Continue on Transfer Acetaminophen [Tylenol ES 500 mg (*)] 1,000 mg PO Q6 PRN 03/03/17 [Last Taken ] Finasteride [Proscar 5 MG (*)] 5 mg PO HS 03/03/17 [Last Taken 03/20/17] Prochlorperazine Maleate [Compazine 10mg (*)] 10 mg PO Q6H PRN 03/03/17 [Last Taken 03/21/17] diphenhydrAMINE [Benadryl 50 MG (*)] 50 mg PO HS PRN 03/03/17 [Last Taken ] Methocarbamol [Robaxin 750 mg (*)] 750 mg PO QID PRN #0 tab 03/06/17 [Last Taken 03/17/17] Polyethylene Glycol 3350 [Miralax 17 gm (*)] 17 gm PO DAILY PRN 03/13/17 [Last Taken 03/19/17] Sennosides/Docusate Sodium [Senokot-S] 1 - 2 tab PO BID PRN 03/13/17 [Last Taken Unknown] Gabapentin [Neurontin 300 MG (*)] 600 mg PO TID 03/21/17 [Last Taken 03/20/17] predniSONE [Prednisone] 20 mg PO DAILY 03/21/17 [Last Taken 03/20/17] Dabrafenib Mesylate [Tafinlar] 0 mg PO BID@1030,2230 03/29/17 [Last Taken Unknown] Furosemide [Lasix 20 MG (*)] 10 mg PO BID@0900,1500 #60 tab 03/29/17 [Last Taken Unknown] Sodium Chloride [Salt Tablet] 1,000 mg PO DAILY #30 tab 03/29/17 [Last Taken Unknown] Trametinib Dimethyl Sulfoxide [Mekinist] 2 mg PO HS #0 03/29/17 [Last Taken ] fentaNYL [Duragesic 50 MCG Patch (*)] 50 mcg TD Q72H #1 box 03/29/17 [Last Taken Unknown] oxyCODONE IR [Oxycodone Ir (*)] 5 - 10 mg PO Q4HRS PRN #60 tab 03/29/17 [Last Taken Unknown] 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 - Orders Services needed: Home Care, Registered Nurse, Physical Therapy Home Care Face to Face: I certify that this patient was under my care and that I had the required [id number] encounter meeting the encounter requirements on the discharge day. My findings support the fact that the patient is homebound as defined in CMS Chapter 7 Medicare Benefits Manual 30.1.1, The condition of the patient is such that there exists a normal inability to leave home and consequently, leaving home would require a considerable and taxing effort. Oxygen: none Diet Recommendation: no restrictions on diet, other (1800 cc fluid restriction) Diet Texture: Regular Texture Diet Tube feeding: n/a Reno: Not applicable Activity/Weight Bearing Restrictions: per PT recommendations - Labs/Radiology BMP Date: 03/30/17 (call to Dr Díaz (nephro) and/or Dr Avery (heme/onc)) - Follow Up Care Current Providers and Referrals: KAITLIN HERNÁNDEZ [Other] - As per Instructions Benitez Avery MD [Medical Doctor] - 1-2 days
[2017-03-29] MEDS: oxyCODONE IR 5 MG TAB PO PRN (15:27)
== END 2017-03-29 16:12 | disposition home health service (06) | DRG 864 ==
LOC: INTOOBSV 14:06 → F1N 14:53 → OBSVTOIN 03-23 10:47 → F2N 03-24 18:50 → F1N 03-26 08:10
PROVIDERS: ADMIT Internal Medicine Pulmonary Disease; ATTEND Family Medicine
PROC: 3E0337Z Introduction of Electrolytic and Water Balance Substance into Peripheral Vein, Percutaneous Approach (ICD-10-PCS; 2017-03-23)
PROC: 009U3ZX Drainage of Spinal Canal, Percutaneous Approach, Diagnostic (ICD-10-PCS; principal; 2017-03-24)
PROC: 02HV33Z Insertion of Infusion Device into Superior Vena Cava, Percutaneous Approach (ICD-10-PCS; 2017-03-24)
DX: R50.2 Drug induced fever (principal); T45.1X5A Adverse effect of antineoplastic and immunosuppressive drugs, initial encounter; E22.2 Syndrome of inappropriate secretion of antidiuretic hormone; E87.1 Hypo-osmolality and hyponatremia; C43.9 Malignant melanoma of skin, unspecified; C79.49 Secondary malignant neoplasm of other parts of nervous system; C79.51 Secondary malignant neoplasm of bone; C78.7 Secondary malignant neoplasm of liver and intrahepatic bile duct; C79.31 Secondary malignant neoplasm of brain; C79.70 Secondary malignant neoplasm of unspecified adrenal gland; I95.9 Hypotension, unspecified; D72.829 Elevated white blood cell count, unspecified; D64.9 Anemia, unspecified; E86.9 Volume depletion, unspecified; G93.40 Encephalopathy, unspecified; R41.82 Altered mental status, unspecified; M84.58XA Pathological fracture in neoplastic disease, other specified site, initial encounter for fracture; Z87.891 Personal history of nicotine dependence; Z98.1 Arthrodesis status
CPT/HCPCS: 87798-90; 92526-GN; 92610-GN; 97110-GP; 97116-GP; 97162-GP; 97166-GO; 97530-GO; 97535-GO; A9585; C1751; G0378; G8987-GO-CK; G8988-GO-CI; J0133; J0290; J0696; J1650; J2997; J3370

== ENCOUNTER 2017-04-20 10:27 | Outpatient (CLI) | payer OTHER ==
[2017-04-20] MEDS ORDERED: diphenhydrAMINE 25 MG CAP PO ONE (10:30)
[2017-04-20] MEDS ORDERED: ACETAMINOPHEN 325 MG TAB PO ONE (10:30)
== END 2017-04-20 18:30 | disposition home or self-care (01) ==
LOC: FOBOP 10:27
PROVIDERS: ATTEND Internal Medicine Hematology & Oncology
PROC: 30233N1 Transfusion of Nonautologous Red Blood Cells into Peripheral Vein, Percutaneous Approach (ICD-10-PCS; principal; 2017-04-20)
DX: C43.9 Malignant melanoma of skin, unspecified (principal)
CPT/HCPCS: 36430; P9016

== ENCOUNTER → 2017-06-01 | Outpatient (CLI) | payer OTHER | LOC: FIMAGING 16:17 | PROVIDERS: ATTEND Physician Assistant Surgical | DX: Z09 Encounter for follow-up examination after completed treatment for conditions other than malignant neoplasm (principal); M50.30 Other cervical disc degeneration, unspecified cervical region; Z98.1 Arthrodesis status; Z85.820 Personal history of malignant melanoma of skin ==

== ENCOUNTER 2017-08-11 13:40 | Inpatient (IN) | payer OTHER ==
--- NOTE | 2017-08-11 14:26 | EDPHY ---
H & P Smoking Status: Former smoker Time Seen by Provider: 08/11/17 14:11 HPI/ROS: CHIEF COMPLAINT: Can't urinate HISTORY OF PRESENT ILLNESS: Patient states he has had difficulty urinating for the past 4 days. He had 250 mL is out today but still feels very full and suprapubic discomfort. Symptoms are severe not associated with dysuria or hematuria or fever or chills. Not associated with weakness or numbness in legs. He does have back pain but has had previous pathologic fractures in his spine. That is unchanged from previous. No bowel incontinence. REVIEW OF SYSTEMS: Eye: no change in vision ENT: no sore throat Cardiac: no chest pain or syncope Pulmonary: no cough or SOB Abdomen: no vomiting, diarrhea, abdominal pain Musculoskeletal: HPI Skin: no rash Neuro: no headache Constitutional: Fever about a week ago , has felt generally more weak than unusual and tired : HPI A comprehensive 10 point review of systems is otherwise negative aside from elements mentioned in the history of present illness. PAST MEDICAL HISTORY: Metastatic melanoma with pathologic spine fractures Social history: Here with spouse, recent trip to [place] to visit family General Appearance: Alert and conversant, cooperative. Eyes: No scleral icterus. ENT, Mouth: Normal mucous membranes. Respiratory: Normal respiratory effort, breath sounds equal, lungs are clear to auscultation. Cardiovascular: Regular rate and rhythm. Gastrointestinal: Suprapubic fullness but no guarding or rebound Neurological: Alert and oriented x3. Normally conversant. Face symmetric, normal movement and sensation in all extremities. Toes downgoing bilaterally, 1 + patellar reflexes and symmetric, patient is able to stand at the side of the bed. Skin: Warm and dry, no rashes. Musculoskeletal: No peripheral edema and no joint swelling. Psychiatric: Not agitated. Emergency Department course/MDM: Bedside bladder scan shows greater than 1 L urine, Reno catheter placed, urinalysis, chemistry panel with BUN/creatnine, MRI to exclude cord compression. 1500: Signed out to Dr. Conklin. Plan is for lumbar spine MRI to evaluate cord compression, labs to include creatinine. If the patient does not have evidence of cauda equina or renal failure he can be discharged with his Reno in place to follow up with Urology as an outpatient. Appropriate specialist consultation and admission if either of the above are present. (Garcia,Aric S) I took over care of this patient at 3:00 p.m.. This patient is here for acute urinary retention. He has a history of pathologic fractures of his spine. We are waiting on the results of an MRI to evaluate for cord compression. Plan at this time is to discharge to home if there is no evidence of cord compression on MRI. 4:30 p.m., EKG obtained and reviewed by myself secondary to patient's hyperkalemia. 4:50 p.m., spoke with staff radiologist, Dr. Sean Miller. No evidence of cord compression on the patient's noncontrast lumbar sacral spine MRI. Metastatic lesions noted. Small pathologic fractures noted at T11 and L2 at the inferior endplates. 5:00 p.m., patient re-evaluated. Resting comfortably at this time. Results of MRI emergency department workup discussed with him and his . Diagnosis of acute renal failure discussed. Need for admission reviewed. All of their questions were answered. The patient had 1200 cc of urine output initially after Reno placement. Hospitalist and nephrology paged. 5:10 p.m., spoke with hospitalist, Dr. Sven Pickett. Case discussed in detail. He accepts the patient for admission. 5:20 p.m., spoke with on-call marketing services vice president Dr. Finn. Case discussed in detail with him. He will consult on further management of this patient. The patient was admitted in stable condition to the hospital service. (Lb Conklin) Constitutional: Initial Vital Signs Temperature (C) 36.3 C 08/11/17 13:48 Heart Rate 88 08/11/17 13:48 Respiratory Rate 16 08/11/17 13:48 Blood Pressure 142/80 H 08/11/17 13:48 O2 Sat (%) 99 08/11/17 13:48 O2 Delivery Mode Room Air Allergies/Adverse Reactions: No Known Allergies Allergy (Verified 08/11/17 13:43) Home Medications: Medication Instructions Recorded Acetaminophen [Tylenol ES 500 mg 1,000 mg PO Q6 PRN 03/03/17 (*)] Finasteride [Proscar 5 MG (*)] 5 mg PO HS 03/03/17 diphenhydrAMINE [Benadryl 50 MG 50 mg PO HS PRN 03/03/17 (*)] Polyethylene Glycol 3350 [Miralax 17 gm PO DAILY PRN 03/13/17 17 gm (*)] Gabapentin [Neurontin 300 MG (*)] 300 mg PO TID 03/21/17 Dabrafenib Mesylate [Tafinlar] 0 mg PO BID@1030,2230 03/29/17 Trametinib Dimethyl Sulfoxide 2 mg PO HS #0 03/29/17 [Mekinist] Colchicine [Colchicine (*)] 1.2 mg PO DAILY 08/11/17 Naproxen Sodium [Aleve 220 MG (*)] 220 mg PO BID 08/11/17 Ranitidine HCl 75 mg PO BID PRN 08/11/17 Medical Decision Making - Diagnostics EKG Interpretation: EKG time is 4:34 p.m.; EKG shows a narrow complex normal sinus rhythm with a ventricular rate of 77. Low voltage in frontal leads noted. 1st degree AV block noted, the QRS, QT intervals are within normal limits. There are no ST-T wave changes indicative of ischemic or injury pattern. No evidence of right heart strain. Interpreted by me. (Lb Conklin) Differential Diagnosis: Differential considered including but not limited to UTI, bladder outlet obstruction, enlarged prostate, cauda equina syndrome. (Aric Garcia) - Data Points Laboratory Results: Laboratory Results 08/11/17 15:01 08/11/17 15:01 Medications Given: Acetaminophen (Tylenol) 1,000 mg PO Q6 PRN PRN Reason: Pain, Inflammatory, fever Stop: 02/07/18 19:17 Last Admin: 08/11/17 23:47 Dose: 1,000 mg Diphenhydramine HCl (Benadryl) 50 mg PO HS PRN PRN Reason: Sleep/Insomnia Stop: 02/07/18 19:17 Last Admin: 08/11/17 23:48 Dose: 50 mg Famotidine (Pepcid) 20 mg PO BID PRN PRN Reason: heartburn Stop: 02/07/18 19:29 Last Admin: 08/12/17 08:09 Dose: 20 mg Finasteride (Proscar) 5 mg PO HS JONATHAN Stop: 02/07/18 20:59 Last Admin: 08/11/17 21:58 Dose: 5 mg Gabapentin (Neurontin) 300 mg PO TID JONATHAN Stop: 02/07/18 21:59 Last Admin: 08/12/17 09:55 Dose: 300 mg Heparin Sodium (Porcine) (Heparin Sc Injection) 5,000 unit SC 0600,1400,2200 [facility] Stop: 02/08/18 08:59 Last Admin: 08/12/17 09:55 Dose: 5,000 unit Sodium Bicarbonate 150 meq/ (Dextrose) 1,150 mls @ 125 mls/hr IV CONT JONATHAN Stop: 02/08/18 08:14 Last Admin: 08/12/17 08:50 Dose: 1,150 mls Ondansetron HCl (Zofran) 4 mg IVP Q4HRS PRN PRN Reason: Nausea/Vomiting, Can't Take PO Stop: 02/07/18 19:05 Last Admin: 08/11/17 20:33 Dose: 4 mg Discontinued Medications Lactated Ringer's (Lr) 1,000 mls @ 150 mls/hr IV CONT JONATHAN Stop: 02/07/18 19:29 Last Admin: 08/12/17 04:46 Dose: 1,000 mls Departure - Departure Disposition: [facility] Inpatient Acute Clinical Impression: Acute retention of urine, Hyperkalemia, Obstructive uropathy Renal failure, acute Qualifiers: Acute renal failure type: unspecified Qualified Code(s): N17.9 - Acute kidney failure, unspecified Condition: Good
[2017-08-11 15:19] LABS: PLATELET COUNT 139 10^3/uL (150-400)
[2017-08-11] MEDS ORDERED: GADOBUTROL 10 ML VIAL IVP ONE (15:24)
--- NOTE | 2017-08-11 16:35 | CPEKG ---
Heart Rate: 77 RR Interval: 779 P-R Interval: 228 QRSD Interval: 88 QT Interval: 368 QTC Interval: 417 P Colton: 57 QRS Colton: 20 T Wave Colton: 44 EKG Severity - ABNORMAL ECG - EKG Impression: SINUS RHYTHM EKG Impression: FIRST DEGREE AV BLOCK EKG Impression: LOW VOLTAGE IN FRONTAL LEADS Electronically Signed By: Lb Conklin 11-Aug-2017 22:59:18
[2017-08-11] MEDS ORDERED: ACETAMINOPHEN 325 MG TAB PO PRN (19:06)
[2017-08-11] MEDS ORDERED: ONDANSETRON DISINTEGRATING 4 MG TAB PO PRN (19:06)
[2017-08-11] MEDS ORDERED: HYDROmorphONE/DILAUDID 1 MG/ML INJ IVP PRN (19:06)
[2017-08-11] MEDS ORDERED: NON-FORMULARY NEW DRUG (Ranitidine Hcl [Ranitidine Hcl] 75 MG) PO PRN (19:18)
[2017-08-11] MEDS ORDERED: POLYETHYLENE GLYCOL 3350 17 GM PKT PO PRN (19:18)
[2017-08-11] MEDS ORDERED: FAMOTIDINE 20 MG TAB PO PRN (19:30)
--- NOTE | 2017-08-11 19:31 | HOSPPROG ---
Hospitalist Progress Note Assessment/Plan: discussed case w dr elmore re: concern for cird involvement will check mr pelvis Objective: Vital Signs Temp Pulse Resp BP Pulse Ox 36.6 C 75 16 137/94 H 98 08/11/17 18:00 08/11/17 18:00 08/11/17 18:00 08/11/17 18:00 08/11/17 18:00 ICD10 Worksheet Patient Problems: Problems Problem Status Onset Acute retention of urine Acute Hyperkalemia Acute Renal failure, acute Acute Fever Acute Metastatic melanoma Acute Pathologic cervical vertebral fracture Acute
--- NOTE | 2017-08-11 20:06 | GHP ---
[f rep st] HISTORY AND PHYSICAL DATE OF ADMISSION: 08/11/2017 Patient is a pleasant 61-year-old gentleman with history of metastatic melanoma, who presents to the hospital today with difficulty urinating. He has been undergoing chemotherapy, was held about a week ago because of some symptoms and he was due to restart it today. He has just had a very difficult t neelam urinating, urinating scant amounts over the last 3 days. He has had fullness and sensation in hi s lower bladder. He previously did not have symptoms of BPH. He has not taken any isas-upu-arbhzzj cold or flu medicines and he has taken a couple of Benadryl in the last week which is not unusual for him but other than that, no anticholinergic medicines. He presented to the ER and he was found to have a creatinine of 10. Reno was placed with minimal di fficulty. He denies fever, chills, cough, sputum, nausea, vomiting, diarrhea, just noting difficulty of urinati on. REVIEW OF SYSTEMS: Complete 10-point review of systems conducted, negative except as noted in the HP I. PAST MEDICAL HISTORY: 1. Metastatic melanoma with widespread osseous metastasis, liver metastasis and adrenal metastasis, brain/spinal cord metastasis. 2. C3 pathologic fracture with cervical canal stenosis. 3. Status post C3 corpectomy with anterior and posterior spinal fusions. FAMILY HISTORY: Mother had skin cancer. SMOKING STATUS: Twenty pack-year smoking history. He does not use alcohol. 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 ALLERGIES: No known drug allergies. HOME MEDICATIONS: Naproxen, colchicine, MiraLAX, gabapentin, finasteride, dabrafenib, diphenhydramin e, trametinib, and ranitidine. PHYSICAL EXAMINATION: PRESENTING VITALS: Temp 36.6, blood pressure 133/88, pulse 82, breathing 16 t imes a minute, 97% on room air. GENERAL: No acute distress. HEENT: Sclerae anicteric. Oropharynx clear. Mucous membranes moist. NECK: Supple without lymphadenopathy or JVD. LUNGS: Clear to ausc ultation bilaterally. HEART: S1, S2 without murmurs. ABDOMEN: Soft, nontender, nondistended. The re are no masses that I can feel. LOWER EXTREMITIES: Without edema. Calves are nontender. SKIN: Wi thout rash. NEUROLOGIC: Nonfocal. LABS: White count 6, hematocrit 37, platelets are 139,000. The low platelets are a new finding for h im. Sodium 135, potassium 5.4, chloride 105, bicarb 11, BUN 133, creatinine 10.2. One week ago his BUN and creatinine were 24 and 1.6. L-spine MRI shows diffuse osseous metastasis most prominent S1, mild pathologic fracture of the infer ior endplate of T12 and L2. No disc herniation, central canal stenosis and neuroforaminal stenosis. No cord compression. EKG interpreted by me shows sinus at 77 with normal axis and intervals with slightly prominent T-wave s in V3, V4. I discussed case with Dr. Lb Conklin. ASSESSMENT/PLAN: 61-year-old, who presents with acute urinary retention, kidney injury. 1. Kidney injury. This is almost certainly postobstructive. This is not that common but I believe that that is what is driving this. Reno is placed. Will start him on some lactated Ringer's. Check a BUN and creatinine tonight and then again in the morning. I will check an abdominal ultrasound so the obstruction. Nephrology has been consulted. 2. Spinal cord metastases. I will have Neurosurgery review the imaging and see the patient to see i f they think this could, in fact, be contributing to his current situation. I think he actually need s probably a sacral MRI as well which I will order. 3. Hyperkalemia mild. Will put him on telemetry. 4. Prophylaxis. Pharmacologic prophylaxis indicated. 5. Benign prostatic hypertrophy. Continue finasteride. DISPOSITION: Inpatient. STATUS CODE: Full. /[id number]/MODL
[2017-08-11] MEDS: ONDANSETRON 4 MG/2 ML VIAL IVP PRN (20:33)
--- NOTE | 2017-08-11 20:38 | GCON ---
[f rep st] CONSULTATION NEPHROLOGY CONSULTATION DATE OF CONSULTATION: 08/11/2017 REASON FOR CONSULTATION: Opinion regarding acute kidney injury. HISTORY OF PRESENT ILLNESS: The patient is 61-year-old gentleman with a baseline serum creatinine th at is essentially normal. I met the patient first last summer when he had acute hyponatremia, which subsequently resolved. The patient has a history of metastatic melanoma, particularly in the spine. He has been treated with targeted therapies up until just the last several days. The patient and hi s went to [place] to visit his parents for [place] celebration and was not taking his medica tions during the break. When he came back 2 days ago, he was having difficulty urinating. He did no t pass any urine for approximately a fil-hvu-d-half. This morning, he stood up to urinate and did pa ss about 200 cc, but still felt uncomfortable. Subsequently, he came in to the emergency department for further evaluation and management. The patient has been having some low-grade fevers while he was on therapy for his melanoma, but has n ot had any since he has been off his melanoma therapy. He also had chills. No chest pain, shortness of breath, nausea, vomiting, anorexia, cough, sputum, hemoptysis, hematemesis, epistaxis, blurry vis ion, double vision, headache, orthopnea, paroxysmal nocturnal dyspnea, palpitations, or syncope. He did have some constipation, and then after therapy with MiraLAX, did have some fecal incontinence. T he patient presented to the emergency department today, was noted to have an abdominal mass which tur clari out to be his bladder. He had a Reno catheter placed and about 6880-5382 cc of urine output was relieved. He now has a Reno catheter in place and is feeling much better. PAST MEDICAL HISTORY: Significant for: 1. Metastatic melanoma. 2. Pathologic fractures of the spine. 3. Pain. ALLERGIES: None known. SOCIAL HISTORY: He is . Does not use tobacco, alcohol, IV or recreational drugs. MEDICATIONS: 1. Tylenol. 2. Robaxin 750 mg q.i.d. 3. Proscar 5 mg at bedtime. 4. MiraLAX. 5. Aleve. 6. Colchicine. 7. Zantac. 8. Mekinist 2 mg bedtime. 9. Tafinlar. 10. Gabapentin 600 mg 3 times daily. REVIEW OF SYSTEMS: A complete 12-point review of systems was performed with the pertinent positives and negatives as per the previous sections. PHYSICAL EXAMINATION: VITAL SIGNS: Blood pressure 137/94, pulse 75, respirations 16, temperature 36 .6. GENERAL: He is alert, awake, cooperative, and is in no acute distress. HEENT: Pupils are reac tive to light. Extraocular movements are intact. Mucous membranes are moist. NECK: No lymphadenop athy or thyromegaly. HEART: Regular. No rub. No S3. LUNGS: No rales, rhonchi, or wheezes. ABDO MEN: Bowel sounds are positive. Soft, nontender, nondistended. EXTREMITIES: No edema, cyanosis, c lubbing. NEUROLOGIC: No asterixis. His lower extremity strength is good and he has good sensation. SKIN: No unusual rashes. LYMPHATICS: No palpable lymphadenopathy. MUSCULOSKELETAL: No effusion s or tenderness. LABORATORY: Serum sodium 135, potassium 5.4, chloride 105, CO2 11, BUN 133, creatinine 10.2, glucose 80. Calcium 8.6. WBC 5.8, hemoglobin 12.6, hematocrit 37, platelet count 139,000. Urinalysis: Sp ecific gravity 1.006, pH 5, negative protein, +1 blood. IMAGING: MRI of the lumbosacral spine showed multiple metastases. His conus medullaris was normal a nd ended at L1. IMPRESSION: 1. Metastatic melanoma, on therapy, although he has been off therapy for several days, as he was tra veling to [place] to spend [place] with his family. 2. Acute urinary retention. Serum creatinine is increased from 1.6 up to 10.2 in just the past 6 or 7 days. 3. Pain due to his pathologic fractures of his spine. RECOMMENDATIONS: 1. Continue Reno catheter drainage. 2. IV fluids between 75 and 100 cc/hr to help mitigate the postobstructive diuresis. 3. Pain control. 4. He will need Urology evaluation. 5. MRI of his pelvis will be undertaken to make certain that he does not have compression of the ner ves to the bladder. 6. Discussed with Dr. Pickett. Thank you for allowing me to participate in the care of your patient. If there are any questions, pl ease do not hesitate to contact us. We will be following along with you. /[id number]/MODL
[2017-08-11] MEDS: LR 1,000 ML IV SCH (21:57)
[2017-08-11] MEDS: FINASTERIDE 5 MG TAB PO SCH (21:58)
[2017-08-11] MEDS: GABAPENTIN 300 MG CAP PO SCH (21:58)
[2017-08-11] MEDS: ACETAMINOPHEN 500 MG TAB PO PRN (23:47)
[2017-08-11] MEDS: diphenhydrAMINE 50 MG CAP PO PRN (23:48)
[2017-08-12] MEDS: LR 1,000 ML IV SCH (04:46)
[2017-08-12 06:13] LABS: PLATELET COUNT 165 10^3/uL (150-400)
[2017-08-12 06:31] LABS: INR 1.2 (0.83-1.16); PROTIME(PATIENT) 15.4 SEC (12.0-15.0)
--- NOTE | 2017-08-12 08:39 | SOAPPROG ---
SOAP Progress Note Assessment/Plan: Assessment: metastatic melanoma BASILIO due to incomplete bladder emptying, creat no better S1 lesion on MRI ? reason for incomplete bladder emptying incomplete bladder emptying, watson in place acidosis worse today borderline hyperkalemia not sleeping well due to IV alarming Plan: change to bicarb solution and DC LR to help with BASILIO, acidosis and elevated K check renal panel this afternoon continue watson drainage ? when to resume therapy for his melanoma 08/12/17 08:34 Subjective: tired didnt sleep well due to alarms going off, suggested he get some ear plugs and see if that helps no cp sob nausea or vomiting, no anorexia frustrated energy not great today Objective: Vital Signs Temp Pulse Resp BP Pulse Ox 36.7 C 96 16 126/79 H 95 08/12/17 04:47 08/12/17 04:47 08/12/17 04:47 08/12/17 04:47 08/12/17 04:47 Laboratory Results 08/12/17 05:30 08/12/17 05:30 08/11/17 08/12/17 08/13/17 05:59 05:59 05:59 Intake Total 1490 Output Total 2200 Balance -710 PT 15.4 SEC (12.0-15.0) H 08/12/17 05:30 INR 1.20 (0.83-1.16) H 08/12/17 05:30 Physical Exam - Physical Exam General Appearance: WD/WN, alert, thin Respiratory: lungs clear, No rhonchi, No wheezing Cardiac/Chest: regular rate, rhythm, No edema, No friction rub Abdomen: normal bowel sounds, non-tender, soft Skin: warm/dry Extremities: No pedal edema Neuro/Psych: alert, oriented x 3 ICD10 Worksheet Patient Problems: Problems Problem Status Onset Acute retention of urine Acute Hyperkalemia Acute Renal failure, acute Acute Fever Acute Metastatic melanoma Acute Pathologic cervical vertebral fracture Acute
--- NOTE | 2017-08-12 08:47 | PDMN ---
Medical Necessity Medical necessity: M326 ARF- 3 fold rise in serum Cr. from baseline,(10.2, 10.3 , 10.2) urine retention, in pt with met. melanoma, - 3 days
[2017-08-12] MEDS: SODIUM BICARBONATE 150 MEQ in D5W 1,000 ML IV SCH (08:50)
[2017-08-12] MEDS ORDERED: HYDROmorphone HCL/NS/PF 0.4 MG/2 ML SYR IVP PRN (09:00)
[2017-08-12] MEDS ORDERED: ENOXAPARIN 40 MG/0.4 ML SYR SC SCH (09:00)
[2017-08-12] MEDS: GABAPENTIN 300 MG CAP PO SCH ×3 (09:55→21:17)
[2017-08-12] MEDS: HEPARIN 5,000 UNIT/0.5 ML SYR SC SCH ×3 (09:55→21:17)
[2017-08-12] MEDS: ACETAMINOPHEN 500 MG TAB PO PRN (12:33)
--- NOTE | 2017-08-12 16:30 | SOAPPROG ---
SOAP Progress Note Assessment/Plan: metastatic melanoma 1. BASILIO due to incomplete bladder emptying -IVF per renal, discussed care plan with Dr Blanco -watson in place, good UOP - close FU, no indication for dialysis at this time 2. metastatic melanoma -discussed care plan with Dr Saenz -chemo per his recs in setting of ERIK 3. S1 lesion on MRI, ? reason for incomplete bladder emptying -neurosurg to review/consult FULL CODE DVT prophy- heparin DISPO- > 48 hours due to severity of ERIK and may need dialysis if not improving Subjective: Denies pain/sob/n at this time. Partner in room- lots of questions/concerns re sxs/care plan. Objective: Vital Signs Temp Pulse Resp BP Pulse Ox 97.8 F 80 15 130/77 H 95 08/12/17 16:12 08/12/17 16:12 08/12/17 16:12 08/12/17 16:12 08/12/17 16:12 Laboratory Results 08/12/17 05:30 08/12/17 14:08 08/11/17 08/12/17 08/13/17 11:59 11:59 11:59 Intake Total 1490 Output Total 2200 Balance -710 PT 15.4 SEC (12.0-15.0) H 08/12/17 05:30 INR 1.20 (0.83-1.16) H 08/12/17 05:30 - Time Spent With Patient Time Spent With Patient: 60 - Pending Discharge Pending Discharge Within 48 Hours: No Physical Exam - Physical Exam General Appearance: alert, no apparent distress EENT: normal ENT inspection, other (LM TM/auricle/EAC all nl and non painful to touch/movement, no TMJ clicks/pain, non tender mastoid) Neck: non-tender, supple Respiratory: lungs clear, decreased breath sounds, No respiratory distress, No crackles, No rhonchi, No wheezing Cardiac/Chest: regular rate, rhythm Abdomen: normal bowel sounds, non-tender, soft, No guarding, No rebound Male Genitalia: other (watson in place) Skin: warm/dry Neuro/Psych: alert, No cognition abnormalities ICD10 Worksheet Patient Problems: Problems Problem Status Onset Acute retention of urine Acute Hyperkalemia Acute Obstructive uropathy Acute Renal failure, acute Acute Fever Acute Metastatic melanoma Acute Pathologic cervical vertebral fracture Acute
--- NOTE | 2017-08-12 16:44 | ASMTCMCOM ---
CM Note CM Note Notes: Pt with metastatic melanoma admitted for difficulty urinating. nephrology consulting. CM will follow for any DC needs. Date Signed: 08/12/2017 04:44 PM Electronically Signed By:Larisa Robbins LCSW
[2017-08-12] MEDS: HYDROmorphONE/DILAUDID 1 MG/ML INJ IVP PRN ×2 (18:47→23:21)
--- NOTE | 2017-08-12 18:47 | GCON ---
[f rep st] CONSULTATION MEDICAL ONCOLOGY FOLLOWUP CONSULTATION REFERRING PHYSICIAN: Brenda Valadez MD REASON FOR CONSULTATION: Ongoing management of metastatic melanoma that is BRAF positive in the sett ing of new onset of renal failure. RECOMMENDATIONS: 1. Agree with aggressive management of his acute renal failure as you are doing with consultations w [facility]surgery and Nephrology. 2. We will hold his dabrafenib and trametinib for the moment since combination can be related to an increase in creatinine. 3. Further treatment planning will depend on his overall renal function. ASSESSMENT: This 61-year-old white male was diagnosed with metastatic melanoma in January of 2017. He is BRAF positive and is placed on trametinib and dabrafenib. He has had a difficult time tolerating medications apparently because of fever. He was seen in the office on August 07. At that time, hi s creatinine was slightly up at 1.6. Two weeks before, his creatinine was normal at 1.2. The patien t was in [place] visiting family and was not feeling particularly well. He had decreased urinary o utput. Upon return to [place], he was evaluated and found to have a creatinine of 10.2 on July 242016. He was also found to be in acute urinary retention. There was a lesion noted in S1 that wa s consistent with metastatic disease. This was evaluated by Neurosurgery and not felt to be related to his urinary retention. Patient currently has consultation from the nephrology service regarding o ptimization of his renal function and also evaluation as to whether he needs acute dialysis. The patient has been responding well to the combination a BRAF and an MEK inhibitor. Multiple subcut aneous nodules have disappeared. The patient continues to have a difficult time tolerating medicatio ns as far as fevers are concerned, however. So far, the decision has not made to change him to anoth er regimen such as nivolumab/ipilimumab. HISTORY OF PRESENT ILLNESS: Please see Assessment. PAST MEDICAL HISTORY: Essentially otherwise unremarkable. FAMILY HISTORY: Remarkable for his brother having prostate cancer. 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 REVIEW OF SYSTEMS: Remarkable for a tremor in his right arm, fatigue, and malaise. A 10-system revi ew is otherwise unremarkable. PHYSICAL EXAMINATION: GENERAL: Reveals an alert white male, in no significant distress but with delbert e shaking in his right arm intermittently. HEENT: Shows no jaundice. LABORATORY DATA: His creatinine is 10.2 with a BUN of 135. His carbon dioxide is low at 9, and his potassium is 5.4. IMAGING DATA: MRI of the patient's pelvis shows osseous metastatic disease in the sacrum and pelvis. This has perhaps increased since January of 2017. There is one lesion abutting the exit of the S1 ner ve root. Thank you very much for allowing us to continue to participate in this gentleman's oncologic care. Kishan allen look forward to assisting with his management during this hospitalization and beyond. /[id number]/MODL
--- NOTE | 2017-08-12 20:16 | GCON ---
[f rep st] NEUROSURGERY CONSULTATION INPATIENT CONSULTATION. CHIEF COMPLAINT: 1. Urinary retention. 2. S1 lesion. 3. Acute renal failure. HISTORY OF PRESENT ILLNESS: Patient is a 61-year-old gentleman with a history of metastatic melanoma, who presented to the emergency department yesterday with difficulty with his urination. He has been undergoing chemotherapy and was scheduled to restart it yesterday. He has been unable to completely empty his bladder. States that he had nearly 1000 mL residual after urination. The patient has had an MRI of the lumbar spine as well as the pelvis, which demonstrated multiple metastatic lesions, one of notation being on the S1 nerve. The patient denies any saddle anesthesia or urinary incontinence or bowel incontinence. He denies any weakness in his legs or any dysesthesias. REVIEW OF SYSTEMS: A 10-point Review of Systems was reviewed and negative aside from what was mentioned in the HPI. PAST MEDICAL HISTORY: Includes metastatic melanoma with widespread metastasis including the liver, adrenals, brain and spinal. SURGERIES: Anterior posterior cervical fusion with Dr. Goel on February for pathological C3 compression fracture. MEDICATIONS: 1. Naproxen. 2. Colchicine. 3. MiraLAX. 4. Gabapentin. 5. Finasteride. 6. Dabrafenib. 7. Diphenhydramine. 8. Trametinib. 9. Ranitidine. SOCIAL HISTORY: The patient lives with his girlfriend. He smoked 2 packs a day for 20 years, but quit 8 years ago. The patient drinks alcohol on a social basis. FAMILY HISTORY: The patient's mother had a history of skin cancer. ALLERGIES: Patient denies any drug allergies. PHYSICAL EXAMINATION: VITAL SIGNS: Blood pressure 119/69, heart rate is 91, oxygen saturations 95% on room air. Respiratory rate is 15. Temperature is 36.4 degrees Celsius orally. HEENT: Head is normocephalic and atraumatic. Pupils equal, round, reactive to light. EOM is intact. Full visual squires by confrontation. Ears are patent. Nose is patent. RESPIRATORY and CARDIAC: Deferred. ABDOMEN: Deferred. GENITOURINARY and RECTAL: Deferred. NEUROLOGIC : Patient is awake, alert, and oriented to name, place, location, date, time, and situation. Memory is intact to immediate past and current events. Speech: There is no aphasia or dysphonia. Cranial nerves 2-12 are grossly intact. Motor: Patient has 5/5 strength in all muscle groups of bilateral upper and lower extremities to include deltoids, biceps, triceps, brachioradialis, wrist flexion, extensors, content strategy lead, intrinsic fingers, iliopsoas, quadriceps, hamstrings, plantar flexion, dorsiflexion, EHL testing. Sensation is grossly intact to light touch throughout all dermatomal distributions in bilateral lower extremities. Reflexes: Biceps, triceps, brachioradialis, knee jerk and ankle jerk are 2+ out of 4. Toes are downgoing bilaterally. Loraine sign is negative. Babinski is negative. No evidence of clonus. LAB STUDIES: Hemoglobin is 11.9, hematocrit 34.5, WBCs 5.97, platelets are 165. Sodium is 134, potassium 4.3, BUN 133, creatinine 9.9, glucose 127, bilirubin 0.8, AST 370, ALT 433. DIAGNOSTIC STUDIES: MRI of the lumbar spine performed without contrast on August 11, 2017, demonstrated multiple osseous metastases which are most prominent at S1. There is a mild pathologic fracture of the inferior endplate of T12 and L2 without retropulsion. There are no herniations or canal stenosis or foraminal stenosis and no compression on the spinal cord in the lumbar region. MRI of the pelvis performed on August 11, 2017, demonstrated again osseous metastatic disease throughout the sacrum and pelvis, which has increased since January 22, 2017 study with 1 lesion abutting the exiting S1 nerve root. Small free fluid in the pelvis of uncertain significance and than also a small fat containing left inguinal hernia. ASSESSMENT AND PLAN: Patient is a 61-year-old gentleman with history of metastatic melanoma with widespread metastasis. Presented to the hospital with urinary retention and acute renal failure. MRIs of the lumbar and pelvis were performed which did not show any significant compressive lesion that would be attributing to any urinary retention. At this time, we do not feel that the patient has any neurosurgical needs. Please feel free to contact us with any further questions or concerns. The patient was seen and examined at the bedside on oncology floor by myself and Dr. Orellana on August 12, 2017, at 12:45 p.m. /[id number]/MODL MTDD
[2017-08-12] MEDS: FINASTERIDE 5 MG TAB PO SCH (21:17)
[2017-08-12] MEDS: diphenhydrAMINE 50 MG CAP PO PRN (23:21)
[2017-08-13] MEDS: SODIUM BICARBONATE 150 MEQ in D5W 1,000 ML IV SCH ×3 (02:08→18:19)
[2017-08-13] MEDS: HEPARIN 5,000 UNIT/0.5 ML SYR SC SCH ×3 (04:31→22:53)
--- NOTE | 2017-08-13 08:00 | SOAPPROG ---
SOAP Progress Note Assessment/Plan: Assessment: metastatic melanoma BASILIO due to incomplete bladder emptying, creat a bit better S1 lesion on MRI Neurosurg not thinking it the reason for incomplete bladder emptying incomplete bladder emptying, watson in place, UOP picking up acidosis better today borderline hyperkalemia improved slept better last night Plan: continue bicarb solution check renal panel this afternoon continue watson drainage Onc following, not starting therapy yet still no urgent HD needs 08/12/17 08:34 08/13/17 07:56 Subjective: resting comfortably girlfriend at bedside, asked not to wake him this AM Objective: Vital Signs Temp Pulse Resp BP Pulse Ox 36.8 C 94 18 142/81 H 91 L 08/13/17 04:00 08/13/17 04:00 08/13/17 04:00 08/13/17 04:00 08/13/17 04:00 Laboratory Results 08/13/17 04:15 08/13/17 04:15 08/12/17 08/13/17 08/14/17 05:59 05:59 05:59 Intake Total 1490 3939 Output Total 2200 3000 Balance -710 939 PT 15.4 SEC (12.0-15.0) H 08/12/17 05:30 INR 1.20 (0.83-1.16) H 08/12/17 05:30 Physical Exam - Physical Exam General Appearance: other (resting) Respiratory: No rales, No rhonchi, No wheezing Cardiac/Chest: regular rate, rhythm, No edema, No gallop, No friction rub Abdomen: normal bowel sounds, non-tender, soft, No distended Extremities: No pedal edema Neuro/Psych: other (resting this AM) ICD10 Worksheet Patient Problems: Problems Problem Status Onset Acute retention of urine Acute Hyperkalemia Acute Obstructive uropathy Acute Renal failure, acute Acute Fever Acute Metastatic melanoma Acute Pathologic cervical vertebral fracture Acute
[2017-08-13] MEDS: HYDROmorphONE/DILAUDID 1 MG/ML INJ IVP PRN ×2 (08:52→12:41)
[2017-08-13] MEDS ORDERED: FAMOTIDINE 20 MG TAB PO PRN (10:00)
[2017-08-13] MEDS: GABAPENTIN 300 MG CAP PO SCH ×3 (10:53→22:54)
[2017-08-13] MEDS ORDERED: predniSONE 20 MG TAB PO ONE (14:06)
--- NOTE | 2017-08-13 14:14 | SOAPPROG ---
SOAP Progress Note Assessment/Plan: Assessment: Acute renal failure - creatinine slowly falling and urine output improving. No current plans for dialysis. Metastatic melanoma (BRAF+) - dabrafinib/tremetinib on hold L ear pain - intermittent but etiology unclear Plan: - nephrology input appreciated - he will need imaging for restaging but this is currently on hold because of acute renal failure Subjective: Feels a little better than this AM. L ear pain intermittent. S.O. Kimberly at the bedside Objective: Vital Signs Temp Pulse Resp BP Pulse Ox 36.8 C 85 14 135/79 H 92 08/13/17 12:00 08/13/17 12:00 08/13/17 12:00 08/13/17 12:00 08/13/17 12:00 Laboratory Results 08/13/17 04:15 08/13/17 04:15 08/11/17 08/12/17 08/13/17 23:59 23:59 23:59 Intake Total 200 3190 2039 Output Total 1550 1950 2250 Balance -1350 1240 -211 PT 15.4 SEC (12.0-15.0) H 08/12/17 05:30 INR 1.20 (0.83-1.16) H 08/12/17 05:30 Physical Exam - Physical Exam General Appearance: mild distress Respiratory: lungs clear Cardiac/Chest: regular rate, rhythm Abdomen: normal bowel sounds, soft Neuro/Psych: depressed affect ICD10 Worksheet Patient Problems: Problems Problem Status Onset Acute retention of urine Acute Hyperkalemia Acute Obstructive uropathy Acute Renal failure, acute Acute Fever Acute Metastatic melanoma Acute Pathologic cervical vertebral fracture Acute
[2017-08-13] MEDS: ONDANSETRON 4 MG/2 ML VIAL IVP PRN ×3 (14:43→22:30)
--- NOTE | 2017-08-13 15:37 | SOAPPROG ---
SOAP Progress Note Assessment/Plan: 1. BASILIO- ?due to incomplete bladder emptying vs S1 lesion -IVF per renal, appreciate Dr Blanco assistance -watson in place, good UOP - close FU, no indication for dialysis at this time -will repeat renal US bc of flank pain for completeness 2. metastatic melanoma -discussed care plan with Dr Saenz -chemo per his recs in setting of ERIK -due for CT body and MRI head in an for surveillance 3. Ear pain -nl otoscope exam and no tenderness to palp/auricle movement/TMJ (?bony lesion) -? ETD with recent flight, 1x oral pred to see if helps 4. S1 lesion on MRI, ? reason for incomplete bladder emptying -neurosurg consult revwd, do not think causing renal issues -available as needed DVT prophy- heparin FULL CODE DISPO- > 48 hours due to severity of ERIK and may need dialysis if not improving Subjective: Sleeping. Partner says still intermittent L ear pain and today some flank/back pain. Some n/v. Objective: Vital Signs Temp Pulse Resp BP Pulse Ox 98.3 F 85 14 135/79 H 92 08/13/17 12:00 08/13/17 12:00 08/13/17 12:00 08/13/17 12:00 08/13/17 12:00 Laboratory Results 08/13/17 04:15 08/13/17 04:15 08/12/17 08/13/17 08/14/17 11:59 11:59 11:59 Intake Total 1490 3939 Output Total 2200 3550 Balance -710 389 PT 15.4 SEC (12.0-15.0) H 08/12/17 05:30 INR 1.20 (0.83-1.16) H 08/12/17 05:30 - Time Spent With Patient Time Spent With Patient: 50 - Pending Discharge Pending Discharge Within 24 Hours: No Physical Exam - Physical Exam General Appearance: other (somnolent, but awakens with exam) EENT: normal ENT inspection Neck: non-tender, supple Respiratory: decreased breath sounds, rales, No respiratory distress, No rhonchi , No wheezing Cardiac/Chest: regular rate, rhythm Abdomen: normal bowel sounds, soft, No guarding, No rebound Skin: warm/dry Neuro/Psych: No cognition abnormalities ICD10 Worksheet Patient Problems: Problems Problem Status Onset Acute retention of urine Acute Hyperkalemia Acute Obstructive uropathy Acute Renal failure, acute Acute Fever Acute Metastatic melanoma Acute Pathologic cervical vertebral fracture Acute
--- NOTE | 2017-08-13 16:11 | ASMTCMCOM ---
CM Note CM Note Notes: Pt continues to have acute renal failure. Chemo on hold. Pt's DC needs are still TBD. CM will continue to follow. Date Signed: 08/13/2017 04:11 PM Electronically Signed By:Larisa Robbins LCSW
[2017-08-13] MEDS ORDERED: PANTOPRAZOLE SODIUM 40 MG VIAL IVP SCH (18:00)
[2017-08-13] MEDS: HYDROmorphone HCL/NS/PF 0.4 MG/2 ML SYR IVP PRN ×2 (18:18→22:29)
[2017-08-13] MEDS: FINASTERIDE 5 MG TAB PO SCH (22:54)
[2017-08-14] MEDS: SODIUM BICARBONATE 150 MEQ in D5W 1,000 ML IV SCH ×2 (01:46→11:41)
[2017-08-14] MEDS: HEPARIN 5,000 UNIT/0.5 ML SYR SC SCH ×3 (06:14→21:53)
[2017-08-14] MEDS: ONDANSETRON 4 MG/2 ML VIAL IVP PRN ×2 (06:26→11:18)
[2017-08-14] MEDS: HYDROmorphone HCL/NS/PF 0.4 MG/2 ML SYR IVP PRN ×2 (06:26→11:20)
[2017-08-14] MEDS ORDERED: PANTOPRAZOLE SODIUM 40 MG VIAL IVP SCH (09:00)
[2017-08-14] MEDS: GABAPENTIN 300 MG CAP PO SCH ×3 (11:19→21:53)
[2017-08-14] MEDS: PANTOPRAZOLE SODIUM 40 MG TAB PO SCH (11:20)
--- NOTE | 2017-08-14 16:17 | HOSPPROG ---
Hospitalist Progress Note Assessment/Plan: 61 yo M with PMH of metastatic melanoma admitted with BASILIO and urinary retention as well as persistent n/v, headache. # basilio: presumably due to urinary retention with 1L out after watson placed however bun/creat improvement has more or less stalled at this point, though UOP remains good. Renal following. Will recheck urine studies, ? component of ATN # acute urinary retention: as above, no hydro on US, pelvic MRI with diffuse osseous mets throughout the pelvis including a large met abutting the exiting s1 nerve root--nsg did not feel this was contributing. Will add flomax. # persistent n/v: patient and note that for the last several days patient is having persistent n/v, often, but not always, with eating. Given associated persistent KEITH and metastatic melanoma, concern for possible intracranial process contributing--will get brain MRI w/o contrast. Other potential etiologies would be that this is related to obstruction--either GOO or SBO versus related to metabolic with elevated bun/creat or elevated lfts. Starting with brain mri as abdominal imaging and abd exam benign. # face pain/headache: patient with pain involving his left ear/face and head. He notes it is not reproducible. Given associated persistent n/v will get mri as above, will also check esr/crp for possible inflammatory process such as temporal arteritis. # S1 lesion: again, nsg consulted, they do not feel this is underlying his presentation as above, will continue to monitor neuro status # elevated lfts: this is new from even 1 week ago, does have known hepatic mets although these were not able to be characterized on recent abd us, no biliary dilation noted on abd us, consider further abdominal imaging if lfts continue to climb # FC--this will need to be addressed further # dispo: IP status, will need > 48 hours stay for eval/mgmt of above Patient new to my care. Old records reviewed. Further hx obtained at length from patients present at bedside. Subjective: patient somnolent today, continues to have n/v fairly consistently, KEITH continues and patient notes a "strange feeling" in his head Objective: Vital Signs Temp Pulse Resp BP Pulse Ox 35.9 C L 71 16 140/83 H 95 08/14/17 15:34 08/14/17 15:34 08/14/17 15:34 08/14/17 15:34 08/14/17 15:34 Laboratory Results 08/14/17 06:10 08/14/17 06:10 08/13/17 08/14/17 08/15/17 05:59 05:59 05:59 Intake Total 3939 1437.5 Output Total 3000 3900 1100 Balance 939 -3900 337.5 PT 15.4 SEC (12.0-15.0) H 08/12/17 05:30 INR 1.20 (0.83-1.16) H 08/12/17 05:30 awake somnolent nad anicteric op clear, dry mm rrr no mrg no cce soft nt nd normal bs warm dry well perfused oriented appropriate - Time Spent With Patient Time Spent with Patient: greater than 35 minutes Time Spent with Patient: Greater than 35 minutes spent on this patients care, greater than 50% of time spent counseling, educating, and coordinating care regarding the above mentioned plan. ICD10 Worksheet Patient Problems: Problems Problem Status Onset Metastatic melanoma Acute Pathologic cervical vertebral fracture Acute Fever Acute Acute retention of urine Acute Renal failure, acute Acute Hyperkalemia Acute Obstructive uropathy Acute
--- NOTE | 2017-08-14 20:21 | SOAPPROG ---
SOAP Progress Note Assessment/Plan: Assessment: 1. BASILIO -Due to incomplete bladder emptying, creat a bit better -Good UOP -Renal U/S 08/13 showed echogenic kidneys -Cont IVF while intake poor 2. Metastatic melanoma S1 lesion on MRI Neurosurg not thinking it the reason for incomplete bladder emptying 3. acidosis - -Improved, now has over-corrected -D/C Bicarb IVF -Start NS at same rate 125cc/hr 4. hyperkalemia -improved Plan: 08/14/17 20:18 08/14/17 20:21 Subjective: Having a little intake today but still with N/V, mild diarrhea. Objective: Vital Signs Temp Pulse Resp BP Pulse Ox 35.9 C L 71 16 140/83 H 95 08/14/17 15:34 08/14/17 15:34 08/14/17 15:34 08/14/17 15:34 08/14/17 15:34 Laboratory Results 08/14/17 17:20 08/14/17 06:10 08/13/17 08/14/17 08/15/17 05:59 05:59 05:59 Intake Total 3939 3209.5 Output Total 3000 3900 1950 Balance 939 -3900 1259.5 PT 15.4 SEC (12.0-15.0) H 08/12/17 05:30 INR 1.20 (0.83-1.16) H 08/12/17 05:30 Physical Exam - Physical Exam General Appearance: WD/WN, alert, no apparent distress Respiratory: normal breath sounds Cardiac/Chest: regular rate, rhythm Abdomen: soft, No non-tender (mild epigastric tenderness, no R/G) Extremities: No swelling ICD10 Worksheet Patient Problems: Problems Problem Status Onset Acute retention of urine Acute Hyperkalemia Acute Obstructive uropathy Acute Renal failure, acute Acute Fever Acute Metastatic melanoma Acute Pathologic cervical vertebral fracture Acute
[2017-08-14] MEDS: NS 1,000 ML IV SCH (21:32)
[2017-08-14] MEDS: FINASTERIDE 5 MG TAB PO SCH (21:53)
[2017-08-14] MEDS: diphenhydrAMINE 50 MG CAP PO PRN (22:08)
[2017-08-15] MEDS: HYDROmorphone HCL/NS/PF 0.4 MG/2 ML SYR IVP PRN ×3 (02:36→12:17)
[2017-08-15 04:48] LABS: PLATELET COUNT 240 10^3/uL (150-400)
[2017-08-15] MEDS: HEPARIN 5,000 UNIT/0.5 ML SYR SC SCH ×3 (05:33→20:24)
[2017-08-15] MEDS: NS 1,000 ML IV SCH ×2 (05:33→16:54)
[2017-08-15] MEDS ORDERED: POTASSIUM Cl (KCl) 100 ML IV SCH (08:15)
[2017-08-15] MEDS: PANTOPRAZOLE SODIUM 40 MG TAB PO SCH (10:11)
[2017-08-15] MEDS: POTASSIUM Cl (KCl) 10 MEQ in NS 100 ML IV SCH ×4 (10:11→21:20)
[2017-08-15] MEDS: TAMSULOSIN HCL 0.4 MG CAP PO SCH (10:12)
[2017-08-15] MEDS: GABAPENTIN 300 MG CAP PO SCH (10:12)
--- NOTE | 2017-08-15 10:22 | SOAPPROG ---
SOAP Progress Note Assessment/Plan: Assessment: 1.) Stage IV Metastatic Melanoma- BRAF V 600 mutation (+), has responded well to Mekinist/Dabrafenib. 2.) ARF- Imaging without clear level of obstruction, reversing with IVF and Watson and po input. To follow labs and encourage po intake. 3.) L ear pain. Will review prior MRI - brain and will review prior Rad. Tx reports in outpt. [facility] chart. 4.) Hypokalemia- to follow. Replete cautiously 5.) Disposition- would expect to have continued improvement in UO, Cr and sx. before release to his significant other's home locally. Follow sx. and Labs. Will review prior Radiation Onc. reports today- see above. Plan: See above discussion. 08/15/17 10:22 Subjective: Nausea is better over past 18 hours. Taking in po fluids. Still having L sided pain, with tingling in hands /feet. Minimal watson discomfort. Objective: in NAD alert and conversant, His significant other partner is at the bedside. HEENT- anicteric, no oral lesions Neck- supple Chest- clear, anteriorly CVS- RSR, no extra HS ABD- soft, NT no mass or HSM EXT- minimal LE edema. Labs: K 3.2 AST/ALT 383/401 Alk phos 228, T. Bili 1.3 BUN/Cr 109/7.5 Imaging: non-contrast MRI noted with apparent new parenchymal lesions seen . Vital Signs Temp Pulse Resp BP Pulse Ox 36.8 C 80 16 136/80 H 93 08/15/17 04:00 08/15/17 04:00 08/15/17 04:00 08/15/17 04:00 08/15/17 04:00 Laboratory Results 08/15/17 04:17 08/15/17 04:17 08/14/17 08/15/17 08/16/17 05:59 05:59 05:59 Intake Total 4559.5 Output Total 3900 3750 600 Balance -3900 809.5 -600 PT 15.4 SEC (12.0-15.0) H 08/12/17 05:30 INR 1.20 (0.83-1.16) H 08/12/17 05:30 ICD10 Worksheet Patient Problems: Problems Problem Status Onset Acute retention of urine Acute Hyperkalemia Acute Obstructive uropathy Acute Renal failure, acute Acute Fever Acute Metastatic melanoma Acute Pathologic cervical vertebral fracture Acute
[2017-08-15] MEDS: DEXAMETHASONE 4 MG TAB PO SCH ×3 (13:28→23:42)
--- NOTE | 2017-08-15 14:43 | HOSPPROG ---
Hospitalist Progress Note Assessment/Plan: 61 yo M with PMH of metastatic melanoma admitted with BASILIO and urinary retention as well as persistent n/v, headache. # basilio: presumably due to urinary retention with 1L out after watson placed, bun/ creat continue to trend down slowly, UOP remains adequate. appreciate renal following. # acute urinary retention: as above, no hydro on US, pelvic MRI with diffuse osseous mets throughout the pelvis including a large met abutting the exiting s1 nerve root--nsg did not feel this was the etiology but rather likely due to tumor burden # persistent n/v: with brain MRI confirming increased brain mets as next, today n/v improved some, will start trial of dexamethasone # brain mets: increased from prior imaging, discussed this with patient and his who became quite tearful and anxious--they have many questions about chemo and when it can be resumed, patient states that he does not want to and wants to do anything he can to fight this cancer # face pain/headache: suspect this is neuropathic in nature perhaps with impingement on facial nerve due to brain mets, will start trial of dex for this as well # S1 lesion: again, nsg consulted, they do not feel this is underlying his presentation as above, will continue to monitor neuro status # elevated lfts: this is new from even 1 week ago, does have known hepatic mets , lfts are stable though still high # FC--patient and very clear that they would like to continue to do everything in terms of fighting to prolong his life even if his prognosis is limited # dispo: IP status, will need > 48 hours stay for eval/mgmt of above Further hx obtained at length from patients present at bedside. Care plan reviewed with oncology as above. Subjective: less nausea today, continues to have ear pain, very concerned about the progression of his brain mets, wants to know what his treatment options are and when he can start chemo Objective: Vital Signs Temp Pulse Resp BP Pulse Ox 36.7 C 77 14 146/90 H 92 08/15/17 10:55 08/15/17 10:55 08/15/17 10:55 08/15/17 10:55 08/15/17 10:55 Laboratory Results 08/15/17 04:17 08/15/17 04:17 12/23/17 12/24/17 12/25/17 05:59 05:59 05:59 Intake Total 4559.5 Output Total 3900 3750 1500 Balance -3900 809.5 -1500 PT 15.4 SEC (12.0-15.0) H 08/12/17 05:30 INR 1.20 (0.83-1.16) H 08/12/17 05:30 awake somnolent nad anicteric op clear, dry mm rrr no mrg no cce soft nt nd normal bs warm dry well perfused oriented appropriate ICD10 Worksheet Patient Problems: Problems Problem Status Onset Acute retention of urine Acute Hyperkalemia Acute Obstructive uropathy Acute Renal failure, acute Acute Fever Acute Metastatic melanoma Acute Pathologic cervical vertebral fracture Acute
[2017-08-15] MEDS ORDERED: POTASSIUM CL 20 MEQ/15 ML UDCUP PO ONE (16:25)
--- NOTE | 2017-08-15 16:25 | SOAPPROG ---
SOAP Progress Note Assessment/Plan: Assessment: 1. BASILIO -Due to incomplete bladder emptying, creat better -Good UOP -Renal U/S 08/13 showed echogenic kidneys -Cont IVF while intake poor -Expect this to continue to improve 2. Metastatic melanoma -S1 lesion on MRI Neurosurg not thinking it the reason for incomplete bladder emptying -Brain mets and will need additional chemo once renal function further restored 3. Acidosis - -Improved, now has over-corrected -D/C'd Bicarb IVF -Now on NS at 125cc/hr, serum CO2 should come back to normal 4. hyperkalemia -improved 5. Hypokalemia - -May be somewhat from excess bicarb and/or increased renal flow -Will supplement KCL now Plan: 08/15/17 16:23 08/15/17 16:26 Subjective: Has some pain on L side of head. MRI showed mets. Pt unhappy about this news, committed to fight it. Objective: Vital Signs Temp Pulse Resp BP Pulse Ox 36.9 C 73 16 145/85 H 92 08/15/17 16:10 08/15/17 16:10 08/15/17 16:10 08/15/17 16:10 08/15/17 16:10 Laboratory Results 08/15/17 04:17 08/15/17 04:17 08/14/17 08/15/17 08/16/17 05:59 05:59 05:59 Intake Total 4559.5 Output Total 3900 3750 1500 Balance -3900 809.5 -1500 PT 15.4 SEC (12.0-15.0) H 08/12/17 05:30 INR 1.20 (0.83-1.16) H 08/12/17 05:30 Physical Exam - Physical Exam General Appearance: WD/WN, alert, no apparent distress Respiratory: normal breath sounds Cardiac/Chest: regular rate, rhythm Abdomen: non-tender, soft Extremities: No swelling ICD10 Worksheet Patient Problems: Problems Problem Status Onset Acute retention of urine Acute Hyperkalemia Acute Obstructive uropathy Acute Renal failure, acute Acute Fever Acute Metastatic melanoma Acute Pathologic cervical vertebral fracture Acute
[2017-08-15] MEDS ORDERED: POTASSIUM Cl (KCl) 100 ML IV ONE (17:45)
[2017-08-15] MEDS: FINASTERIDE 5 MG TAB PO SCH (20:24)
[2017-08-15] MEDS: diphenhydrAMINE 50 MG CAP PO PRN (21:22)
[2017-08-16] MEDS: HEPARIN 5,000 UNIT/0.5 ML SYR SC SCH ×3 (06:12→21:01)
[2017-08-16] MEDS: DEXAMETHASONE 4 MG TAB PO SCH ×4 (06:13→23:42)
[2017-08-16] MEDS: NS 1,000 ML IV SCH ×2 (06:13→20:59)
[2017-08-16] MEDS ORDERED: GABAPENTIN 300 MG CAP PO SCH (09:00)
[2017-08-16] MEDS: PANTOPRAZOLE SODIUM 40 MG TAB PO SCH (09:03)
[2017-08-16] MEDS: GABAPENTIN 100 MG CAP PO SCH (09:03)
[2017-08-16] MEDS: TAMSULOSIN HCL 0.4 MG CAP PO SCH (09:03)
--- NOTE | 2017-08-16 09:40 | CPEKG ---
Heart Rate: 52 RR Interval: 1154 P-R Interval: 180 QRSD Interval: 92 QT Interval: 476 QTC Interval: 443 P [place]: 45 QRS [place]: -3 T Wave [place]: 33 EKG Severity - NORMAL ECG - EKG Impression: SINUS RHYTHM Electronically Signed By: Marcos Nuno 17-Aug-2017 07:50:20
--- NOTE | 2017-08-16 12:11 | SOAPPROG ---
SOAP Progress Note Assessment/Plan: Assessment: 1.) Stage IV Metastatic Melanoma- BRAF V 600 mutation (+), has responded well to Mekinist/Dabrafenib. Now off Tx with development of ARF. 2.) ARF- Imaging without clear level of obstruction, reversing with IVF and Watson and po input. To follow labs and encourage po intake. 3.) L ear pain. Will review prior MRI - brain and will review prior Rad. Tx reports in outpt. [facility] chart. Left ear pain is better Wednesday on dexamethasone. 4.) Hypokalemia- to follow. Replete cautiously 5.) Disposition- would expect to have continued improvement in UO, Cr and sx. before release to his significant other's home locally. Follow sx. and Labs. Pt could go home w/ watson catheter for home management, with BMP 2-3 / week to assess renal function before/after removal of watson catheter. D/W patient and his partner this AM. Pt eager to resume Mekinist/Dabrafenib despite his adverse effects of Tx. I explained than renal insufficiency may complicate reduced dosing of these agents if they are renally cleared. Will inform his primary Oncologist- Dr Nanette Avery of these developments as to establishing direction for systemic tx with either current meds, or with new Tx plans. Plan: See above discussion. May be able to go home in next 24-48 hours. 08/16/17 12:12 Subjective: Feeling better and out of bed. GI input has improved without new sx. Tolerating watson cath well. No new sx., but notes nodule growing on R posterior shoulder area. Objective: in NAD. He is is bed, alert, animated and talkative. His partner is at the bedside. VSS afebrile as noted here. HEENT- anicteric, no oral lesions, Neck- supple Chest- clear R posterior shoulder notable for approx. 2 cm fleshy cutaneous erythematous firm, fibrous type, NT nodule, non-ulcerated CVS- RSR, no extra HS ABD- soft, NT no mass or HSM Watson catheter with large volume dilute yellow appearing urine EXT- benign Labs: BUN/Cr down to 83/6.5 K= 4.0 CO2 31 Hgb 11.5 Brain MRI shows new parenchymal lesions. Vital Signs Temp Pulse Resp BP Pulse Ox 36.5 C 51 L 13 151/84 H 94 08/16/17 08:00 08/16/17 08:00 08/16/17 08:00 08/16/17 08:00 08/16/17 08:00 Laboratory Results 08/15/17 04:17 08/16/17 04:25 08/15/17 08/16/17 08/17/17 05:59 05:59 05:59 Intake Total 4559.5 3572 Output Total 3750 5615 Balance 809.5 -2053 PT 15.4 SEC (12.0-15.0) H 08/12/17 05:30 INR 1.20 (0.83-1.16) H 08/12/17 05:30 ICD10 Worksheet Patient Problems: Problems Problem Status Onset Acute retention of urine Acute Hyperkalemia Acute Obstructive uropathy Acute Renal failure, acute Acute Fever Acute Metastatic melanoma Acute Pathologic cervical vertebral fracture Acute
--- NOTE | 2017-08-16 15:42 | ASMTCMCOM ---
CM Note CM Note Notes: Pt will need HC RN/PT/OT at DC. Pt would like to use [facility] which he used earlier in the year. Pt will be staying at his girlfriend's house again. Her address is on the face sheet. Alerted [facility]. Pt may be ready for DC tomorrow. Date Signed: 08/16/2017 03:42 PM Electronically Signed By:Larisa Robbins LCSW
--- NOTE | 2017-08-16 16:18 | HOSPPROG ---
Hospitalist Progress Note Assessment/Plan: 61 yo M with PMH of metastatic melanoma admitted with BASILIO and urinary retention as well as persistent n/v, headache. # basilio: presumably due to urinary retention with 1L out after watson placed, bun/ creat continue to trend down, UOP remains adequate. Given continued improvement we will try to dc in coming 1-2 days with f/u with renal and urology # acute urinary retention: as above, no hydro on US, pelvic MRI with diffuse osseous mets throughout the pelvis as well as hx of prior urinary retention related to BPH. Continue finasteride and flomax. Will dc with watson catheter and plan to f/u with urology. # persistent n/v: with brain MRI confirming increased brain mets as next, resolved, continue dex for now # brain mets: increased from prior imaging, n/v and facial pain have improved with starting dex # face pain/headache: suspect this is neuropathic in nature perhaps with impingement on facial nerve due to brain mets, resolved with dex, monitoring # metastatic melanoma: widely metastatic disease involving bone, liver, adrenals , brain. Had been on biologic therapies prior to admission that is on hold now until renal function improved # S1 lesion: nsg has been involved, they do not feel this is underlying his presentation as above, will continue to monitor neuro status # elevated lfts: this is new from even 1 week ago, does have known hepatic mets , lfts are stable though still high. Will continue to monitor, US eval of liver not revealing of any new issues, if no improvement in am will get repeat RUQ US w/doppler # FC--patient and very clear that they would like to continue to do everything in terms of fighting to prolong his life even if his prognosis is limited # dispo: IP status, will need > 48 hours stay for eval/mgmt of above Further hx obtained at length from patients present at bedside. Care plan reviewed with oncology as above. Subjective: no significant overnight events, patient hoping that he can go home in the am, he has no face/ear/head pain today, no n/v Objective: Vital Signs Temp Pulse Resp BP Pulse Ox 36.5 C 59 L 14 142/84 H 95 08/16/17 16:00 08/16/17 16:00 08/16/17 16:00 08/16/17 16:00 08/16/17 16:00 Laboratory Results 08/15/17 04:17 08/16/17 04:25 08/15/17 08/16/17 08/17/17 05:59 05:59 05:59 Intake Total 4559.5 3572 Output Total 3750 5625 1400 Balance 809.5 -2053 -1400 PT 15.4 SEC (12.0-15.0) H 08/12/17 05:30 INR 1.20 (0.83-1.16) H 08/12/17 05:30 awake somnolent nad anicteric op clear, dry mm rrr no mrg no cce soft nt nd normal bs warm dry well perfused oriented appropriate ICD10 Worksheet Patient Problems: Problems Problem Status Onset Acute retention of urine Acute Hyperkalemia Acute Obstructive uropathy Acute Renal failure, acute Acute Fever Acute Metastatic melanoma Acute Pathologic cervical vertebral fracture Acute
--- NOTE | 2017-08-16 17:21 | SOAPPROG ---
SOAP Progress Note Assessment/Plan: Assessment: 1. BASILIO -Due to incomplete bladder emptying, creat better -Good UOP -Renal U/S 08/13 showed echogenic kidneys -Cont IVF while intake poor though is appetite is improving -He may go home in next day or two and this seems appropriate as his appetite is increasing, advised at least 2L fluid intake daily + meals and he should continue to improve, will have HHN to monitor labs and can f/u with us in clinic 2. Metastatic melanoma -S1 lesion on MRI Neurosurg not thinking it the reason for incomplete bladder emptying -Brain mets and will need additional chemo once renal function further restored 3. Acidosis - -Improved, now has over-corrected -D/C'd Bicarb IVF -Now on NS at 125cc/hr, serum CO2 coming back to normal 4. hyperkalemia -improved 5. Hypokalemia - -May be somewhat from excess bicarb and/or increased renal flow -Improved with supplementation and switching IVF; normal now Plan: 08/16/17 17:19 08/16/17 17:20 Subjective: Feels better. Less KEITH pain and improved appetite. Objective: Vital Signs Temp Pulse Resp BP Pulse Ox 36.5 C 59 L 14 142/84 H 95 08/16/17 16:00 08/16/17 16:00 08/16/17 16:00 08/16/17 16:00 08/16/17 16:00 Laboratory Results 08/15/17 04:17 08/16/17 04:25 08/15/17 08/16/17 08/17/17 05:59 05:59 05:59 Intake Total 4559.5 3572 Output Total 3750 5625 1400 Balance 809.5 -2053 -1400 PT 15.4 SEC (12.0-15.0) H 08/12/17 05:30 INR 1.20 (0.83-1.16) H 08/12/17 05:30 Physical Exam - Physical Exam General Appearance: WD/WN Respiratory: lungs clear, normal breath sounds Cardiac/Chest: regular rate, rhythm Abdomen: non-tender, soft Extremities: No swelling ICD10 Worksheet Patient Problems: Problems Problem Status Onset Acute retention of urine Acute Hyperkalemia Acute Obstructive uropathy Acute Renal failure, acute Acute Fever Acute Metastatic melanoma Acute Pathologic cervical vertebral fracture Acute
[2017-08-16] MEDS: FINASTERIDE 5 MG TAB PO SCH (21:01)
[2017-08-16] MEDS: diphenhydrAMINE 50 MG CAP PO PRN (21:01)
[2017-08-17] MEDS: DEXAMETHASONE 4 MG TAB PO SCH ×3 (04:55→17:07)
[2017-08-17] MEDS: HEPARIN 5,000 UNIT/0.5 ML SYR SC SCH (04:55)
--- NOTE | 2017-08-17 09:20 | SOAPPROG ---
[facility] Progress Note Assessment/Plan: Assessment:Plan: ARF-baseline creatinine around 1 -presented with creatinine of 10.3 with obstruction -etiology of urinary retention unclear -creatinine improving nicely with a drop from 6.5 to 4.8 overnite -with this rate of improvement, his GFR is essentially normal right now -it is safe for him to get MRI contrast at this point -risk of gadnolinium-related injury are purely GFR-dependent -I would allow for his creatinine to return to baseline prior to giving any CT contrast -given duration of obstructive symptoms, he may have an element of tubular injury that would make him more at risk for contrast nephropathy at this time -tolerating some PO -continue IVF next 24 hours, then can discharge -to f/u at [facility] with Dr. Díaz in [place] in about 10 days -contrast-related issues discussed with Dr. Pabon 08/17/17 09:16 Subjective: feeling better Objective: Vital Signs Temp Pulse Resp BP Pulse Ox 36.4 C 60 12 157/90 H 94 08/17/17 04:30 08/17/17 04:30 08/17/17 04:30 08/17/17 04:30 08/17/17 04:30 Laboratory Results 08/15/17 04:17 08/17/17 04:24 08/16/17 08/17/17 08/18/17 05:59 05:59 05:59 Intake Total 3572 3838 Output Total 5625 3600 Balance -2053 238 PT 15.4 SEC (12.0-15.0) H 08/12/17 05:30 INR 1.20 (0.83-1.16) H 08/12/17 05:30 Physical Exam - Physical Exam General Appearance: WD/WN, alert Neck: normal inspection Respiratory: lungs clear, normal breath sounds, No respiratory distress Cardiac/Chest: regular rate, rhythm, No diastolic murmur, No systolic murmur Abdomen: normal bowel sounds Skin: normal color, warm/dry Extremities: No swelling ICD10 Worksheet Patient Problems: Problems Problem Status Onset Acute retention of urine Acute Hyperkalemia Acute Obstructive uropathy Acute Renal failure, acute Acute Fever Acute Metastatic melanoma Acute Pathologic cervical vertebral fracture Acute
--- NOTE | 2017-08-17 09:23 | SOAPPROG ---
SOAP Progress Note Assessment/Plan: Assessment: 1) Metastatic melanoma. 2) Acute renal failure due to bladder atony 3) Brain metastases from #1 4) Transaminitis secondary to targeted therapy Plan: Patient would like to go home today if he continues to feel well. I discussed his case with Dr. Chao. His kidneys are clearly improving. He will need to go home with a watson in place. He will need an outpatient urology consult to evaluate if watson can eventually come out. The exact cause of his bladder atony is unclear. This may have been multifactorial. Will wait to restart his Tafinlar and Mekinist for now. His Transaminitis is secondary to these drugs, and should slowly improve. Will defer to Dr. Avery in terms of timing to resume. Unclear if he truly has progressive DESIGN TECHNICIAN disease since his brain MRI was a non contrast study. He will need an outpatient contrast enhanced MRI once his renal fxn improves. Will notify Dr. Avery of his discharge, and our service will arrange Oncology f/ u and repeat labs later this week. Plan d/w patient and . Questions answered. 08/17/17 09:15 08/17/17 09:17 Subjective: Feels well. Renal function improving. at bedside. Objective: Vital Signs Temp Pulse Resp BP Pulse Ox 36.4 C 60 12 157/90 H 94 08/17/17 04:30 08/17/17 04:30 08/17/17 04:30 08/17/17 04:30 08/17/17 04:30 Laboratory Results 08/15/17 04:17 08/17/17 04:24 08/16/17 08/17/17 08/18/17 05:59 05:59 05:59 Intake Total 2964 6549 Output Total 0428 3246 Balance -2053 238 PT 15.4 SEC (12.0-15.0) H 08/12/17 05:30 INR 1.20 (0.83-1.16) H 08/12/17 05:30 - Time Spent With Patient Time Spent With Patient: 30 minutes Physical Exam - Physical Exam General Appearance: alert, no apparent distress EENT: PERRL/EOMI Abdomen: non-tender, soft, other (No suprapubic mass) Neuro/Psych: alert, normal mood/affect ICD10 Worksheet Patient Problems: Problems Problem Status Onset Acute retention of urine Acute Hyperkalemia Acute Obstructive uropathy Acute Renal failure, acute Acute Fever Acute Metastatic melanoma Acute Pathologic cervical vertebral fracture Acute
[2017-08-17 09:25] VITALS: BP 172/99; PULSE 70; RESP 17; TEMP 97.7; O2SAT 95
[2017-08-17] MEDS: PANTOPRAZOLE SODIUM 40 MG TAB PO SCH (09:32)
[2017-08-17] MEDS: GABAPENTIN 100 MG CAP PO SCH (09:32)
[2017-08-17] MEDS: TAMSULOSIN HCL 0.4 MG CAP PO SCH (09:32)
[2017-08-17] MEDS: NS 1,000 ML IV SCH (11:45)
--- NOTE | 2017-08-17 14:12 | PDDCSUM ---
Discharge Summary Discharge Summary: Dates of service 08/11-08/17/17 Consultations: renal, oncology, neurosurgery Procedures performed: pelvix MRI, brain MRI, lumbar spine MRI, abd/pelvic us Hospital course by problem: 61 yo M with PMH of metastatic melanoma admitted with BASILIO and urinary retention as well as persistent n/v, headache. # basilio: presumably due to urinary retention with 1L out after watson placed, bun/ creat continue to trend down, UOP remains adequate. Given continued improvement we will try to dc in coming 1-2 days with f/u with renal and urology # acute urinary retention: as above, no hydro on US, pelvic MRI with diffuse osseous mets throughout the pelvis as well as hx of prior urinary retention related to BPH. Continue finasteride and flomax. Will dc with watson catheter and plan to f/u with urology. # persistent n/v: with brain MRI confirming increased brain mets as next, resolved, continue dex for now--will dc home on medrol dose valorie # brain mets: increased from prior imaging, n/v and facial pain have improved with starting dex # face pain/headache: suspect this is neuropathic in nature perhaps with impingement on facial nerve due to brain mets, resolved with dex, monitoring. Was on neurontin at 300 tid prior to admission however with renal function poor it seemed to be accumulating and decreased the dose significantly to 100daily. May need to consider increasing down the road # metastatic melanoma: widely metastatic disease involving bone, liver, adrenals , brain. Had been on biologic therapies prior to admission that is on hold now until renal function improved--has f/u set up with oncology after discharge # S1 lesion: nsg has been involved, they do not feel this is underlying his presentation as above, will continue to monitor neuro status # elevated lfts: this is new from even 1 week ago, does have known hepatic mets , lfts have begun trending down # FC--patient and very clear that they would like to continue to do everything in terms of fighting to prolong his life even if his prognosis is limited # dispo: dc home f/u with oncology, urology, renal dc home > 35 minuts spent in dc of patient more than half in coordination of care and counseling patient and his
--- NOTE | 2017-08-17 16:17 | PDIAF ---
- Diagnosis Code Status: Full Code - Medication Management Discharge Medications: Medications to Continue on Transfer Acetaminophen [Tylenol ES 500 mg (*)] 1,000 mg PO Q6 PRN 03/03/17 [Last Taken 12:00] Finasteride [Proscar 5 MG (*)] 5 mg PO HS 03/03/17 [Last Taken 08/10/17] diphenhydrAMINE [Benadryl 50 MG (*)] 50 mg PO HS PRN 03/03/17 [Last Taken 1 Week Ago ~08/04/17] Polyethylene Glycol 3350 [Miralax 17 gm (*)] 17 gm PO DAILY PRN 03/13/17 [Last Taken 3 Days Ago ~08/08/17] Gabapentin [Neurontin 300 MG (*)] 300 mg PO TID 03/21/17 [Last Taken 08/11/17 12 :00] Ranitidine HCl 75 mg PO BID PRN 08/11/17 [Last Taken 08/10/17] Tamsulosin HCl [Flomax 0.4 MG (*)] 0.4 mg PO DAILY #30 cap 08/17/17 [Last Taken Unknown] methylPREDNISolone [Medrol Dose Jett] 1 each PO AD #1 ea 08/17/17 [Last Taken Unknown] Discharge Medications: Refer to the Discharge Home Medication list for PRN reason. - Orders Services needed: Home Care, Registered Nurse, Physical Therapy, Occupational Therapy Home Care Face to Face: I certify that this patient was under my care and that I had the required [id number] encounter meeting the encounter requirements on the discharge day. My findings support the fact that the patient is homebound as defined in Home Care Face to Face Continued: CMS Chapter 7 Medicare Benefits Manual 30.1.1 , The condition of the patient is such that there exists a normal inability to leave home and consequently, leaving home would require a considerable and taxing effort. Isolation Type: Chemotherapy Isolation [place]: Yes (routine care) - Labs/Radiology BMP Date: 08/20/17 - Follow Up Care Current Providers and Referrals: Santos Flores MD [Medical Doctor] - (call to be seen for hospital f/ u with next available urologist) Aiyana Thompson MD [Medical Doctor] - As per Instructions (urology referral followup next week, leave catheter in place) Khoi Chao MD [Medical Doctor] - Benitez vAery MD [Medical Doctor] - As per Instructions
--- NOTE | 2017-08-18 09:23 | ASDISCHSUM ---
Discharge Information Plan Status:Home with Home Health Medically Cleared to Leave:08/16/2017 Discharge Date:08/17/2017 05:48 PM D/C Disposition:Home Health Service ADT D/C Disposition:Home, Routine, Self-Care Projected Discharge Date:08/17/2017 04:00 PM Transportation at D/C:Friend Discharge Delay Reason: Follow-Up Date:08/17/2017 04:00 PM Discharge Slot: Final Diagnosis:Acute urinary retention, Brain mets, BASILIO Placement Information Referral Type:*Home Health Care Services Referral ID:[id number] Provider Name:[facility] Address 1:[address], [place] [address] Address 2: City:[place] Selection Factors: State:[place] Patient Contact Information Contact Name:JAVED Relationship:Life Partner Address:[address] Work Phone: City:[place] Alternate Phone: State/Zip Code:[place] [address] Email: Financial Information Financial Class:HMO and PPO Plans Primary Plan Desc:[facility] Primary Plan Number:[id number] Secondary Plan Desc: Secondary Plan Number: Assessment Information LACE LACE Acuity / Level of Care Answers: Was the patient admitted to hospital via the emergency department? Yes: Comorbidities - select Answers: Metastatic solid tumor all that apply Emergency dept visits in Answers: 3 last 6 months Score: 12 Date Signed: 08/11/2017 05:16 PM Electronically Signed By:Peace Young RN [facility] CM Progress Note CM Note CM Note Notes: Pt with metastatic melanoma admitted for difficulty urinating. nephrology consulting. CM will follow for any DC needs. Date Signed: 08/12/2017 04:44 PM Electronically Signed By:Larisa Robbins LCSW [facility] CM Progress Note CM Note CM Note Notes: Pt continues to have acute renal failure. Chemo on hold. Pt's DC needs are still TBD. CM will continue to follow. Date Signed: 08/13/2017 04:11 PM Electronically Signed By:Larisa Robbins LCSW [facility] CM Progress Note CM Note CM Note Notes: Pt will need HC RN/PT/OT at DC. Pt would like to use [facility] which he used earlier in the year. Pt will be staying at his girlfriend's house again. Her address is on the face sheet. Alerted [facility]. Pt may be ready for DC tomorrow. Date Signed: 08/16/2017 03:42 PM Electronically Signed By:Larisa Robbins LCSW Case Management Discharge Plan Note Case Management Discharge Discharge Order Complete? Answers: Yes Patient to Obtain Answers: via Family Medications Transportation Arranged Answers: Family/Friends Transport will Pick (Date 08/17/2017 03:30 PM & Time) Faxed Final Orders Answers: Yes Notes: [facility] Family Notified Answers: Yes Notes: Girlfriend to transport Discharge Comments Notes: Patient has been discharged. 2x Messages have been left for [facility]. Date Signed: 08/17/2017 04:25 PM Electronically Signed By:Sonal Ambrosio LCSW Intervention Information
== END 2017-08-17 17:48 | disposition home health service (06) | DRG 699 ==
LOC: F1N 20:23
PROVIDERS: ADMIT Internal Medicine; ATTEND Internal Medicine
DX: N32.89 Other specified disorders of bladder (principal); N17.9 Acute kidney failure, unspecified; E87.5 Hyperkalemia; N40.1 Benign prostatic hyperplasia with lower urinary tract symptoms; R33.9 Retention of urine, unspecified; H92.09 Otalgia, unspecified ear; R11.2 Nausea with vomiting, unspecified; Z85.820 Personal history of malignant melanoma of skin; C79.51 Secondary malignant neoplasm of bone; C78.7 Secondary malignant neoplasm of liver and intrahepatic bile duct; C79.70 Secondary malignant neoplasm of unspecified adrenal gland; C79.31 Secondary malignant neoplasm of brain; C79.49 Secondary malignant neoplasm of other parts of nervous system; Z87.891 Personal history of nicotine dependence; Z98.1 Arthrodesis status
CPT/HCPCS: 97165-GO; 97530-GO; 97535-GO; A9585; J1170; J1650; J2405

== ENCOUNTER 2017-08-24 06:16 | Inpatient (IN) | payer OTHER ==
[2017-08-24] MEDS ORDERED: NS 1,000 ML IV ONE ×2 (06:20→07:22)
[2017-08-24] MEDS ORDERED: LORazepam 2 MG/ML INJ IVP ONE ×3 (06:20→15:00)
[2017-08-24] MEDS ORDERED: LORazepam 2 MG/ML INJ ONE (06:21)
--- NOTE | 2017-08-24 06:29 | CPEKG ---
Heart Rate: 162 RR Interval: 370 QRSD Interval: 80 QT Interval: 324 QTC Interval: 533 P [place]: 0 QRS [place]: 196 T Wave [place]: 75 EKG Severity - ABNORMAL ECG - EKG Impression: Sinus tachycardia, regular Electronically Signed By: Carlos Busch 24-Aug-2017 06:39:11
[2017-08-24 06:34] LABS: PLATELET COUNT 462 10^3/uL (150-400)
--- NOTE | 2017-08-24 06:35 | EDPHY ---
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 Recently admitted for obstructive uropathy and acute kidney injury. He has chronic nausea, face pain and headaches due to his brain metastasis. He had been taking dexamethasone and Neurontin. His dexamethasone taper ended yesterday. The dose of Neurontin was decreased due to the renal insufficient recently. The patient is full code. According to the paramedics the patient had a seizure this morning that woke his up from sleep. He has never had seizures before. He then had another seizure as there extra getting him and one in the back of the ambulance. He has not received any anti seizure medication. They describe it is generalized tonic-clonic and lasting about 30 sec. He is currently postictal. REVIEW OF SYSTEMS: Unable to obtain secondary to condition EXAM: GENERAL: Breathing heavily, moving all extremities spontaneously HEAD: Atraumatic, normocephalic. EYES: Pupils equal round and reactive to light, extraocular movements intact, sclera anicteric, conjunctiva are normal. ENT: TMs normal, nares patent, oropharynx clear without exudates. Moist mucous membranes. NECK: Normal range of motion, supple without lymphadenopathy or JVD. LUNGS: Breath sounds clear to auscultation bilaterally and equal. No wheezes rales or rhonchi. HEART: Regular rate and rhythm without murmurs, rubs or gallops. ABDOMEN: Soft, nontender, normoactive bowel sounds. No guarding, no rebound. No masses appreciated. BACK: no spinal tenderness, step-offs or deformities EXTREMITIES: Normal range of motion, no pitting or edema. No clubbing or cyanosis. NEUROLOGICAL: Cranial nerves II through XII grossly intact. Moaning. 5/5 strength, normal movement in all extremities, normal sensation to pain PSYCH: Normal mood, normal affect. SKIN: Warm, dry, normal turgor, no visible rashes or lesions. Source: EMS, Old records - Medical/Surgical History Hx Asthma: No Hx Chronic Respiratory Disease: No Hx Diabetes: No Hx Cardiac Disease: No Hx Renal Disease: No Hx Cirrhosis: No Hx Alcoholism: No Hx HIV/AIDS: No Hx Splenectomy or Spleen Trauma: No Other PMH: metastatic melanoma with mets to brain, lung liver, bone, C3 pathologic fx fusion 2-4 - Family History Significant Family History: No pertinent family hx - Social History Smoking Status: Former smoker Alcohol Use: Sober Constitutional: Initial Vital Signs Temperature (C) 36.8 C 08/24/17 06:17 Heart Rate 166 H 08/24/17 06:17 Respiratory Rate 20 08/24/17 06:17 Blood Pressure 120/66 08/24/17 06:17 O2 Sat (%) 97 08/24/17 06:17 O2 Delivery Mode Nasal Cannula O2 (L/minute) 2 Allergies/Adverse Reactions: No Known Allergies Allergy (Verified 08/11/17 13:43) Home Medications: Medication Instructions Recorded Acetaminophen [Tylenol ES 500 mg 1,000 mg PO Q6 PRN 03/03/17 (*)] Finasteride [Proscar 5 MG (*)] 5 mg PO HS 03/03/17 diphenhydrAMINE [Benadryl 50 MG 50 mg PO HS PRN 03/03/17 (*)] Polyethylene Glycol 3350 [Miralax 17 gm PO DAILY PRN 03/13/17 17 gm (*)] Gabapentin [Neurontin 100 MG (*)] 100 mg PO DAILY #30 cap 08/17/17 Tamsulosin HCl [Flomax 0.4 MG (*)] 0.4 mg PO DAILY #30 cap 08/17/17 oxyCODONE IR [Oxycodone Ir (*)] 5 mg PO Q6H 08/24/17 Medical Decision Making - Diagnostics EKG Interpretation: An EKG obtained and was read and documented in trace view. Please see trace view for full reading and report. Sinus tachycardia or, P-waves visible. Regular Imaging: Discussed imaging studies w/ rehab department manager Radiologist ED Course/Re-evaluation: 6:35 a.m. the patient's is here. She states that the patient finished his steroid taper yesterday. 7:00 a.m. we discussed the patient's head CT scan. I discussed the case with Neurosurgery who will consult. I discussed the case with Dr. Meyer who will admit to the ICU. The patient remains full code. He is doing better after Ativan and is postictal state is resolving. Also his heart rate is improving and is now 130. We will continue IV fluids. Differential Diagnosis: Partial list of the Differential diagnosis considered include but were not limited to; seizure disorder, intracranial hemorrhage, cancer and although unlikely based on the history and physical exam, I also considered infection, non accidental trauma. Critical Care Time: Critical care time spent by Dr. Jo-Ann barrett exclusive with this patient was 50 minutes, exclusive of the PA time exclusive of procedures. The organ system that was at risk was neurologic and I gave IV fluids, benzodiazepines, consultation and admission to prevent worsening of the patient's condition - Data Points Laboratory Results: Laboratory Results 08/24/17 06:30 08/24/17 06:30 Medications Given: Dexamethasone (Decadron Injection) 4 mg IVP Q6HRS [facility] Stop: 02/20/18 11:59 Last Admin: 08/25/17 12:24 Dose: 4 mg Finasteride (Proscar) 5 mg PO HS [facility] Stop: 02/20/18 20:59 Last Admin: 08/24/17 20:38 Dose: Not Given Gabapentin (Neurontin) 100 mg PO DAILY [facility] Stop: 02/21/18 08:59 Last Admin: 08/25/17 10:19 Dose: Not Given Hydralazine HCl (Apresoline) 10 mg IVP Q2HRS PRN PRN Reason: SBP Greater Than Stop: 02/21/18 02:10 Last Admin: 08/25/17 02:19 Dose: 10 mg Hydromorphone HCl (Dilaudid) 0.4 - 1 mg IVP Q2HRS PRN PRN Reason: Pain, Severe Unable to Take PO Stop: 09/03/17 11:15 Last Admin: 08/25/17 11:52 Dose: 1 mg Levetiracetam 500 mg/ Sodium (Chloride) 105 mls @ 420 mls/hr IV BID [facility] Stop: 02/20/18 08:59 Last Admin: 08/25/17 08:18 Dose: 105 mls Cefepime HCl 2 gm/ Sodium (Chloride) 100 mls @ 200 mls/hr IV Q12HRS JONATHAN PRN Reason: Protocol Stop: 09/23/17 09:59 Last Admin: 08/25/17 08:18 Dose: 100 mls Sodium Chloride (Ns) 1,000 mls @ 200 mls/hr IV CONT JONATHAN Stop: 02/20/18 10:14 Last Admin: 08/25/17 12:00 Dose: 1,000 mls Vancomycin HCl 1.25 gm/ (Dextrose) 250 mls @ 250 mls/hr IV DAILY@1100 JONATHAN Stop: 09/24/17 10:59 Last Admin: 08/25/17 10:48 Dose: 250 mls Tamsulosin HCl (Flomax) 0.4 mg PO DAILY JONATHAN Stop: 02/21/18 08:59 Last Admin: 08/25/17 10:19 Dose: Not Given Discontinued Medications Hydromorphone HCl (Dilaudid) 0.5 mg IVP EDNOW ONE Stop: 08/24/17 07:18 Last Admin: 08/24/17 07:19 Dose: 0.5 mg Hydromorphone HCl (Dilaudid) 1 mg IVP ONCE ONE Stop: 08/24/17 09:46 Last Admin: 08/24/17 09:45 Dose: 1 mg Hydromorphone HCl (Dilaudid) 0.4 - 1 mg IVP Q4HRS PRN PRN Reason: Pain, Severe Unable to Take PO Stop: 09/03/17 11:15 Last Admin: 08/24/17 20:54 Dose: 1 mg Hydromorphone HCl (Dilaudid) 1 mg IVP ONCE@1500 ONE Stop: 08/24/17 15:01 Last Admin: 08/24/17 14:52 Dose: 1 mg Sodium Chloride (Ns) 1,000 mls @ 0 mls/hr IV ONCE ONE; Wide Open PRN Reason: Protocol Stop: 08/24/17 06:21 Last Admin: 08/24/17 06:29 Dose: 1,000 mls Sodium Chloride (Ns) 1,000 mls @ 0 mls/hr IV ONCE ONE PRN Reason: Wide Open Stop: 08/24/17 07:23 Last Admin: 08/24/17 07:23 Dose: 1,000 mls Sodium Chloride (Ns) 1,000 mls @ 150 mls/hr IV CONT JONATHAN Stop: 02/20/18 08:44 Last Admin: 08/24/17 09:17 Dose: 1,000 mls Vancomycin HCl 1 gm/ Dextrose 250 mls @ 250 mls/hr IV Q24H [facility] Stop: 09/23/17 10:59 Last Admin: 08/24/17 11:49 Dose: 250 mls Lorazepam (Ativan Injection) 1 mg IVP EDNOW ONE Stop: 08/24/17 06:21 Last Admin: 08/24/17 06:29 Dose: 1 mg Lorazepam (Ativan Injection) 1 mg IVP EDNOW ONE Stop: 08/24/17 06:43 Last Admin: 08/24/17 06:53 Dose: 1 mg Lorazepam (Ativan Injection) 1 mg IVP ONCE@1500 ONE Stop: 08/24/17 15:01 Last Admin: 08/24/17 14:52 Dose: 1 mg Departure - Departure Disposition: [facility] Acute Clinical Impression: Intracranial hemorrhage, Metastatic melanoma Condition: Critical
[2017-08-24] MEDS ORDERED: HYDROmorphONE/DILAUDID 1 MG/ML INJ ONE (07:13)
[2017-08-24] MEDS ORDERED: HYDROmorphONE/DILAUDID 1 MG/ML INJ IVP ONE ×3 (07:17→15:00)
--- NOTE | 2017-08-24 08:02 | SOAPPROG ---
Downtime Inpatient MD Late Entry SOAP Note: Chuck had a seizure this am. He has known intracranial and disseminated melanoma. He was hospitalized last week for renal failure. He had left ear pain at the time treated with steroids. This has resolved. He has relatively new and severe right scapular pain that according to the patient has not been worked up. He has chronic low back pain and abdominal pain that family says is from cancer. He is sp cervical fusion for tumor by Dr. Arthur last February. a/p: New seizure. needs keppra needs MRI with contrast New subarachnoid blood. needs new MRI New right scapular pain needs MRI Cervical and thoracic spine Prior cervical fusion needs new xrays of the cervical spine full report to follow. dr. arthur team aware. -bhargav schuler md
[2017-08-24] MEDS ORDERED: LORazepam 2 MG/ML INJ IVP PRN ×2 (08:42→23:51)
[2017-08-24] MEDS ORDERED: NS 1,000 ML IV SCH (08:45)
[2017-08-24] MEDS: levETIRAcetam 500 MG in NS 100 ML IV SCH ×2 (09:17→21:30)
--- NOTE | 2017-08-24 09:29 | CPEKG ---
Heart Rate: 109 RR Interval: 550 P-R Interval: 176 QRSD Interval: 84 QT Interval: 320 QTC Interval: 431 P [place]: 73 QRS [place]: 15 T Wave [place]: 65 EKG Severity - OTHERWISE NORMAL ECG - EKG Impression: SINUS TACHYCARDIA EKG Impression: LOW VOLTAGE IN FRONTAL LEADS Electronically Signed By: Santos Zimmemran 24-Aug-2017 12:35:58
[2017-08-24] MEDS ORDERED: NALOXONE HCL 0.4 MG/ML INJ IVP PRN (09:40)
[2017-08-24] MEDS ORDERED: HYDROmorphONE/DILAUDID 6 MG/30 ML PCA IV PRN (09:40)
[2017-08-24] MEDS ORDERED: PROMETHAZINE HCL 25 MG/ML INJ IVP PRN (09:42)
[2017-08-24] MEDS ORDERED: ONDANSETRON DISINTEGRATING 4 MG TAB PO PRN (09:42)
[2017-08-24] MEDS ORDERED: ONDANSETRON 4 MG/2 ML VIAL IVP PRN (09:42)
[2017-08-24] MEDS ORDERED: POLYETHYLENE GLYCOL 3350 17 GM PKT PO PRN (09:46)
[2017-08-24] MEDS ORDERED: VANCOMYCIN HCL/NORMAL SALINE 250 ML IV SCH (10:30)
[2017-08-24] MEDS ORDERED: VANCOMYCIN 1 GM in D5W 250 ML IV SCH (11:00)
[2017-08-24] MEDS: CEFEPIME HCL 2 GM in NS 100 ML IV SCH ×2 (11:14→20:39)
[2017-08-24 11:16] LABS: INR 1.05 (0.83-1.16); PROTIME(PATIENT) 13.9 SEC (12.0-15.0)
--- NOTE | 2017-08-24 11:28 | GHP ---
[f rep st] HISTORY AND PHYSICAL DATE OF ADMISSION: 08/24/2017 The patient is a pleasant 61-year-old gentleman with a history of metastatic melanoma and recent admi ssion for obstructive renal failure with a creatinine of 10, who presents this morning with a seizure . He was discharged on the with a creatinine of 4.3 that had been trending down, as well as a s teroid taper. He finished his steroid taper yesterday. At about 4:30 this morning, he woke up with a seizure; his was not sure what was going on, whether he had aspirated or was having a heart at tack or had had a seizure. He is not on any seizure medicines. He does have known intracranial meta stases. The patient has no known previous history of coronary disease. It sounds like he was initia lly diagnosed with metastatic melanoma in January of this year and had actually done well until , and then had been doing a bit worse. He had an MRI during his last admission on the , showing numerous foci of T2 hyperintensity in the puri-white junction areas, consistent with progressive met astatic disease. He was also followed by Oncology during that time. His medications have been held, given his elevated LFTs and renal function. He has been at home with an indwelling [place]. I discussed his prognosis and the possibility of comfort-based care strategy with his . The nuvia ent is somewhat pre contemplative regarding these and for the time being continues to have a hope jim t he will progress and remains pre contemplative regarding changing the course of his care. It does not appear that he has had fever or chills, nausea, vomiting. It sounds like he has been eating okay , although he has quite dry mucous membranes. REVIEW OF SYSTEMS: Complete 10-point review of systems conducted and negative except as noted in the HPI. PAST MEDICAL HISTORY: 1. Metastatic melanoma with known metastases to his brain and spine. 2. Obstructive renal failure secondary to bladder atony with indwelling Reno. 3. C3 pathologic fracture with cervical canal stenosis, status post C3 corpectomy with anterior and posterior spinal fusions. FAMILY HISTORY: Mother had skin cancer. He has a 20 pack-year smoking history. In the past, he has drank alcohol, but really has had very little recently. 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 ALLERGIES: No known drug allergies. HOME MEDICATIONS: Acetaminophen, diphenhydramine, oxycodone, finasteride, gabapentin, MiraLAX and ta msulosin, likely BPH in his past medical history. PHYSICAL EXAMINATION: VITAL SIGNS: Presenting vitals today, he is afebrile, blood pressure 120/66, pulse 166, now in the 110s, breathing 18 times a minute, 97% on 2 L. GENERAL: Acute distress. Unco mfortable, complaining of shoulder pain. HEENT: His mucous membranes are dry. NECK: Supple. LUNG S: Clear to auscultation anterolaterally. HEART: S1, S2, and tachycardic. ABDOMEN: Soft, nontend er, nondistended. LOWER EXTREMITIES: Without edema. Calves are nontender. SKIN: Without rash. 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 The patient is kind of writhing in pain, so i t is difficult to perform a more focused neurologic exam. He is moving all extremities. His mental status is depressed compared to his known baseline from my prior encounters with him. LABORATORY DATA: His sodium is 142, potassium 5.1, chloride is 100, bicarb is 10, anion gap is 32, B UN is 32, creatinine 1.9, glucose 167. White count is 20 with a left shift including a band count of 1.8. Hematocrit is 46, platelets are 462,000. Presenting EKG interpreted by me, showed sinus tach at 166 with normal axis. The inferior leads 2, 3 and F are concerning for about [address] elevation. A subsequently repeated EKG, also interpreted by me, shows sinus tach at [address]-elevation in leads 2, 3 and F. He has some peak T-waves ac ross the precordium. Head CT shows small acute subarachnoid hemorrhage along the right parietal lobe , new metastases versus small focus of cortical ischemia in the right parieto-occipital lobe, suspect right frontal lobe metastases with associated edema unchanged from 2 weeks prior. Discussed the case with Dr. Khoi Chao and Dr. Carlos Busch. ASSESSMENT/PLAN: A 61-year-old gentleman with metastatic melanoma, who presents with seizures, possi ble inferior ST-elevation myocardial infarction, right scapular pain, metabolic acidosis, and presume d sepsis. 1. Seizure: This is presumed secondary to intracranial metastases. The patient needs an MRI of his brain with contrast. He has been seen by Neurosurgery, who recommended this. This will be done whe n the patient has been stabilized. 2. Question sepsis: The patient has a leukocytosis. He has an indwelling Reno. He has a soft bel ly. There is no obvious nidus of infection at this time. I will check a venous lactate. I have sta rt him on vancomycin, cefepime for nosocomial coverage. Perform a chest x-ray, blood cultures, urine cultures. Urine looks clear in his Ren[place], but he is certainly at risk for that. I will also have t he nurses change his [place]. 3. Question inferior ST-elevation myocardial infarction: His initial EKG was remarkably concerning, his subsequent is less so. I have ordered a stat echocardiogram, which is forthcoming, to evaluate for wall motion abnormalities, as well as cycling troponins. I have 1 pending. The patient is high risk for anticoagulation and questionable for procedure, so Cardiology has not been consulted as of y et. 4. Scapular pain presumed secondary to metastatic disease: Cannot rule out anginal equivalent. X-r ay obtained at the request of his . 5. Code: The patient is full code at this point in time, hopeful for aggressive care. 6. Metabolic acidosis. This may well be secondary to a seizure, however given his tachycardia and o verall clinical picture cannot rule out hypoperfusion. The patient is not particularly hypertensive. 7. Sinus tachycardia: The patient is clinically dry based on mucous membranes, etc. He is written for IV fluids. I will continue them. 8. Intracranial metastases with seizures and edema: I have started him on dexamethasone. He just c ompleted a steroid taper. 9. Prophylaxis: SCDs for the time being, given his clinical picture and the need for possible inter vention. 10. Indwelling Reno. We will have the nurses change it. 11. Metastatic melanoma: Will have Oncology see him. 12. History of elevated liver function tests: Will hold Tylenol. 13. Pain: Dilaudid MACHINE SIZER. 60 minutes of critical care time in the admission of this patient. /[id number]/MODL
[2017-08-24] MEDS: DEXAMETHASONE 4 MG/ML VIAL IVP SCH ×3 (11:34→23:13)
--- NOTE | 2017-08-24 11:52 | ECHO ---
[email or web address] [address] [address] Main: [phone] Fax: Transthoracic Echocardiogram Name: LAUREN ODEN MR#: [id number] Study Date: 08/24/2017 Study Time: 09:47 AM Date of : 1955 Age: 61 year(s) Height: 175.3 cm (69 in.) Weight: 69.4 kg (153 lb.) BSA: 1.84 m2 Gender: Male Examination: Echo Indication: Inferior STEMI (by EKG) Image Quality: Contrast: Requested by: Sven Pickett BP: 126 mmHg/73 mmHg Heart Rate: Rhythm: Indication: Inferior STEMI (by EKG) Procedure Staff Passenger Elevator Operator: Dulce Maria Aponte Reading Physician: Santos Zimmerman Requesting Provider: Conclusions: Normal size left ventricle. No LV hypertrophy. Normal global systolic LV function. The ejection fraction is estimated to be 60-65 %. No regional wall motion abnormality. Normal size right ventricle. The mitral valve is normal in appearance and function. Trivial mitral valve regurgitation. Trivial tricuspid valve regurgitation. Normal size aortic root measuring 3.3 cm. Normal size ascending aorta measuring 3.4 cm. Measurements: Chambers Valvular Assessment AV/MV Valvular Assessment TV/PV Normal Normal Normal Name Value Range Name Value Range Name Value Range Ao Catarina (MM): 3.3 cm (2.2 cm-3.7 AV Vmax: 1.03 m/s (1 m/s-1.7 cm) m/s) IVSd (2D): 0.8 cm (0.6 cm-1.1 AV maxP mmHg ( - ) cm) MV E Vmax: 0.50 m/s ( - ) LVDd (2D): 5.0 cm (4.2 cm-5.9 MV A Vmax: 0.99 m/s ( - ) cm) MV E/A: 0.51 ( - ) LVDs (2D): 2.9 cm (2.1 cm-4 cm) LVPWd (2D): 1.0 cm (0.6 cm-1 cm) LVEF (MOD4): 57 % (>=55 %) EF Range: 60-65 % Continued Measurements: Patient: LAUREN ODEN Study Date: 08/24/2017 Page 1 of 2 09:47 AM Chambers Valvular Assessment AV/MV Name Value Name Value LADs: 3.3 cm MV E/E' Septal: 2.70 LADs Lon.8 cm MV E/E' Lateral: 10.20 LA Area: 14.9 cm2 Additional Vessels Name Value Ao Ascendin.4 cm Findings: Left Ventricle: Normal size left ventricle. No LV hypertrophy. Normal global systolic LV function. The ejection fraction is estimated to be 60-65 %. No regional wall motion abnormality. Right Ventricle: Normal size right ventricle. Left Atrium: The left atrium is normal in size. Right Atrium: The right atrium is normal in size. Mitral Valve: The mitral valve is normal in appearance and function. Trivial mitral valve regurgitation. Aortic Valve: The aortic valve is normal in appearance and function. Tricuspid Valve: The tricuspid valve is normal in appearance and function. Trivial tricuspid valve regurgitation. Pulmonic Valve: Pulmonary valve not well visualized. Aorta: The aorta is normal. Normal size aortic root measuring 3.3 cm. Normal size ascending aorta measuring 3.4 cm. Pericardium: No pericardial effusion. (No Signature Object) Patient: LAUREN ODEN Study Date: 08/24/2017 Page 2 of 2 09:47 AM [id number]
--- NOTE | 2017-08-24 12:49 | ASMTCMCOM ---
CM Note CM Note Notes: Pt readmitted following sz after DC 08/17. Pt current with [facility] and will continue with them at DC. Met with pt's Kimberly for support. Gave her info on upcoming caregiver support group and a book for caregiver's. Pt unable to participate. CM will continue to follow. Date Signed: 08/24/2017 12:49 PM Electronically Signed By:Larisa Robbins LCSW
[2017-08-24] MEDS: HYDROmorphONE/DILAUDID 1 MG/ML INJ IVP PRN ×2 (13:14→20:54)
--- NOTE | 2017-08-24 14:07 | PDMN ---
Medical Necessity Medical necessity: Patient meets inpatient criteria per physician note and [facility] M -79 Subarachnoid Hemorrhage, Nonsurgical Treatment - 4 days - (first-time seizure this a.m.; pt w/history of metastatic melanoma with known metastases to brain and spine, obstructive renal failure, C3 pathological fracture s/p C3 corpectomy and ant/posterior fusions; CT shows sm SAH R parietal lobe; poss sepsis: leukocytosis of 19,000 and ongoing tachycardia w/metabolic acidosis; anticipated LOS > 2 midnights for loading w/IV Keppra, IV antibiotics and steroids, IV hydration and IV Dilaudid for pain control.
[2017-08-24] MEDS ORDERED: GADOBUTROL 10 ML VIAL IVP ONE (17:40)
--- NOTE | 2017-08-24 18:14 | GCON ---
[f rep st] CONSULTATION DATE OF CONSULTATION: 08/24/2017 The location of the consultation was the emergency department at [facility], Room 11. REASON FOR CONSULTATION: Seizure and new right hypodense parietal lesion with a known history of met astatic melanoma. HISTORY OF PRESENT ILLNESS: The patient is a 61-year-old gentleman who was just recently discharged from the hospital last week and apparently was seen by 1 of my partners, Dr. Wallace Orellana, for a new sa cral lesion at that time. This is history given to me by 1 of my PAs, but not by the . I asked her repeatedly if he had seen a neurosurgeon and she really could not recall any, and she related his story dating back until January of 2017 when he was diagnosed with metastatic melanoma, which apparentl y has the BRAF mutation, and he was put on dabrafenib for this with good clinical response. On furth er questioning, she did recount though that he had significant C3 metastatic lesion and Dr. Antoine patten was his neurosurgeon and underwent I believe an anterior posterior cervical spine surgery for la rge C3 metastasis back in February of last year and was scheduled to see Dr. Goel in the coming week. Last week he was seen in the hospital with renal failure believed to be obstructive in origin and an MRI of the brain was done demonstrating persistent intracranial lesions, none with any signifi cant mass effect, but it was a noncontrasted study because his creatinine was elevated. At the time, he was having significant left ear pain and was given a steroid taper, which was completed and seems to have resolved the left ear pain. Since the prior admission, he has been complaining of increasin g right scapular pain without radiation down the right arm and this, according to the , has not b een worked up. He has chronic pain in the lower back as well as radiating abdominal pain that she sa ys is chronic and related to his known metastatic cancer. He does have an indwelling Reno catheter. What prompted the visit to the emergency department this morning was him striking the while ly ing in bed. He reached out his arm rather stiffly and grabbed her, but apparently was conscious and looking at her but not talking, and she was able to roll him over, but knew something was wrong and a ctivated EMS and when EMS arrived, he apparently had a witnessed generalized tonoclonic seizure and w as brought to the emergency department. He had never had a prior seizure before and was not on seizu re medications. At the time Neurosurgery evaluated the patient, he was still postictal in the emerge ncy department and was unable to provide history himself. All the [facility] PAST MEDICAL HISTORY: Includes metastatic melanoma with known metastases to the brain and spine, obs tructive renal failure, prior cervical fusion for C3 fracture. FAMILY HISTORY: Includes mother, skin cancer. SOCIAL HISTORY: 20 pack-year smoking history. He used to drink in the past. 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 ALLERGIES: None. HOME MEDICATIONS: Include acetaminophen, diphenhydramine, oxycodone, finasteride, gabapentin, MiraLA X, and tamsulosin. He had also been on dabrafenib for his metastatic melanoma, but was not currently taking this. PHYSICAL EXAMINATION: He did appear to be a well-nourished male lying supine in a hospital bed, [facility] but not interactive whatsoever. He was nonverbal at the time I saw him. He did follow command s and had good strength in lower extremities. Sensation could not be tested. ASSESSMENT: The patient has known intracranial metastatic disease and new CT scan of the head today demonstrated 2 areas of concern, principally 1 was in the right high parietal region in the area of h is prior known metastasis. There is evidence of some subarachnoid blood, not concerning especially f or trauma, but could be related to an underlying melanoma. There is also a new right parietal hypode nsity, possibly new metastasis, although this seems unlikely given the recent nature of his prior MRI . His radiographic workup of metastatic melanoma is incomplete without doing a contrasted study and when his medical condition allows, we would certainly like an MRI of the brain with and without contr ast to evaluate further. With regard to his seizure, he needs to be on Keppra 500 twice daily by eneida th or intravenous is reasonable. He complains of new scapular pain on the right-hand side and this c an be related to either thoracic or cervical spine metastatic disease and in my view warrants workup of these areas of the spine, particularly given his prior history of cervical disease. We would also like to get a set of cervical spine x-rays to evaluate his hardware, but we would be happy to order these. There is no urgency. It would be nice to get these studies when his medical condition allows contrasted studies to be performed, and we will be happy to follow in consultation. Dr. Elle sanches's service has been made aware of the patient. /[id number]/MODL
[2017-08-24] MEDS: NS 1,000 ML IV SCH (18:58)
[2017-08-24] MEDS: FINASTERIDE 5 MG TAB PO SCH (20:38)
[2017-08-25] MEDS: HYDROmorphONE/DILAUDID 1 MG/ML INJ IVP PRN ×3 (00:04→11:52)
[2017-08-25] MEDS ORDERED: hydrALAZINE 20 MG/ML VIAL IVP ONE (00:15)
[2017-08-25] MEDS: NS 1,000 ML IV SCH ×4 (00:53→17:02)
[2017-08-25] MEDS ORDERED: hydrALAZINE 20 MG/ML VIAL IVP PRN (02:11)
[2017-08-25 05:00] LABS: PLATELET COUNT 234 10^3/uL (150-400)
[2017-08-25] MEDS: DEXAMETHASONE 4 MG/ML VIAL IVP SCH ×3 (05:24→17:50)
[2017-08-25] MEDS: CEFEPIME HCL 2 GM in NS 100 ML IV SCH ×2 (08:18→20:38)
[2017-08-25] MEDS: levETIRAcetam 500 MG in NS 100 ML IV SCH (08:18)
--- NOTE | 2017-08-25 08:47 | SOAPPROG ---
SOAP Progress Note Assessment/Plan: Assessment: 61 yo M with widely metastatic melanoma who presented with seizure , 6 months out from C3 corpectomy with C2-4 fusion. Plan: neuro: stable overll, right scapular pain is likely from T2 paraspinal lesion. Mr Gonzales has widely metastatic disease that has progressed in brain and thoracic spine. Patient does not have any lesions compressing spinal cord in cervical or thoracic spine. No surgical intervention will improve his pain or change his treatment course. Given his most recent series of events he may need hospice care sooner than later. We will check x-rays of his cervical spine to evaluate his hardware. Continue on keppra 500 mg po BID for seizures please call with neuro changes discussed with Dr Pagan 08/25/17 08:33 08/25/17 08:52 f Subjective: sleeping this am, no headaches. No N/V. no neck pain but continued right scapula pain. Objective: Vital Signs Temp Pulse Resp BP Pulse Ox 36.1 C 79 18 159/83 H 98 08/25/17 02:00 08/25/17 08:00 08/25/17 08:00 08/25/17 08:00 08/25/17 08:00 Laboratory Results 08/25/17 04:45 08/25/17 04:45 08/24/17 08/25/17 08/26/17 05:59 05:59 05:59 Intake Total 5028.4 Output Total 3225 Balance 1803.4 PT 13.9 SEC (12.0-15.0) 08/24/17 10:45 INR 1.05 (0.83-1.16) 08/24/17 10:45 awake, alert oriented to month/year PERRL, no facial droop AFRICA x 4 + light touch ICD10 Worksheet Patient Problems: Problems Problem Status Onset Intracranial hemorrhage Acute Metastatic melanoma Acute Acute retention of urine Acute Fever Acute Hyperkalemia Acute Obstructive uropathy Acute Pathologic cervical vertebral fracture Acute Renal failure, acute Acute
--- NOTE | 2017-08-25 08:48 | HOSPPROG ---
Hospitalist Progress Note Assessment/Plan: Seizure secondary to intracranial mets - neurosurg following. cont keppra, dex seizure precautions ?Sepsis - Doubt. He presented with tachycardia and leukocytosis, but afebrile with normal lactate, no hypotension. No source of infection, but indwelling watson noted. BCx's pending. send ua, UCx cont broad spectrum atbx until Cxs neg, likely step down to oral Levaquin tomorrow Metastatic melanoma - mets evident in brain (progressive since 08/11/2017), along with sacrum and pelvis. He was on dual targeted oral therapy, but this was held due to toxicities onc consult today, discussed with Dr. Whitaker discussed palliative care consult with pt and , they are agreeable Elevated trop - trop trending down. No WMA on echo discussed with cards Encephalopathy - suspect due to progression of brain mets, possible opioid side effects speech / swallow eval, NPO until cleared Scapular pain - suspect mets pain control Full code DVT PPLX - will discuss LMWH with neurosurg Dispo - cont inpt Subjective: Pt is sleepy, aphasic, difficulty interacting. Denies pain. No fevers. No more seizures. Objective: Vital Signs Temp Pulse Resp BP Pulse Ox 36.1 C 79 18 159/83 H 98 08/25/17 02:00 08/25/17 08:00 08/25/17 08:00 08/25/17 08:00 08/25/17 08:00 Laboratory Results 08/25/17 04:45 08/25/17 04:45 08/24/17 08/25/17 08/26/17 05:59 05:59 05:59 Intake Total 5028.4 Output Total 3225 Balance 1803.4 PT 13.9 SEC (12.0-15.0) 08/24/17 10:45 INR 1.05 (0.83-1.16) 08/24/17 10:45 - Physical Exam Constitutional: no apparent distress Eyes: PERRL Ears, Nose, Mouth, Throat: moist mucous membranes Cardiovascular: regular rate and rhythym Respiratory: no respiratory distress Gastrointestinal: normoactive bowel sounds Skin: warm Musculoskeletal: generalized weakness Psychiatric: encephalopathic ICD10 Worksheet Patient Problems: Problems Problem Status Onset Intracranial hemorrhage Acute Metastatic melanoma Acute Acute retention of urine Acute Fever Acute Hyperkalemia Acute Obstructive uropathy Acute Pathologic cervical vertebral fracture Acute Renal failure, acute Acute
[2017-08-25] MEDS: GABAPENTIN 100 MG CAP PO SCH (10:19)
[2017-08-25] MEDS: TAMSULOSIN HCL 0.4 MG CAP PO SCH (10:19)
[2017-08-25] MEDS: VANCOMYCIN 1.25 GM in D5W 250 ML IV SCH (10:48)
--- NOTE | 2017-08-25 16:03 | GCON ---
[f rep st] CONSULTATION CARDIOVASCULAR CONSULTATION DIAGNOSIS: Metastatic melanoma, admitted for seizure. The patient had an elevated troponin, and Keo gallegose been asked to evaluate him. HISTORY OF PRESENT ILLNESS: The patient has many, many severe problems. His creatinine has been as high as 4.3. He had a seizure and with his seizure he came into the hospital. He had a recent admission for obstr uctive renal failure with a creatinine of 10 that went down to 4.3. He had been taking steroids. He has not had chest pain, jaw pain, pleuritic chest pain, sputum production, fever, chills. He tells me he does not have nausea, vomiting. He tells me that he has had some left-sided back pain, but he has had back pain for a long time, sinc e before his diagnosis of melanoma. He has never had a seizure before. He is not having headaches, blurred vision, difficulty with speec h. His cardiac risk factors are known to be negative for hypertension, diabetes mellitus, hyperlipidemia , hyperuricemia, obesity, or known coronary disease. He has no family history of premature coronary disease. He smoked for many years but has stopped for 8 years at least. SOCIAL HISTORY: He was born in [place], [place]. He lives here with his partner. 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 He himself has been in [place] 4 2 years. 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 His partner is a good skier and a person paula golden likes to ski as well. The patient's history began when he started having a cough in October, and then he had low back pain an d the cause of this was not make clear, until eventually he was evaluated and found on January 21 to be diagnosed with metastatic myeloma. He is seeing Dr. Avery. He does not smoke. He does not drink significant amounts of alcohol. REVIEW OF SYSTEMS: A 12-point review of systems negative except as noted above. 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 He has had a C3 pathologic fracture with cervical canal stenosis, status post C3 corpectomy with ante rior and posterior spinal fusions. He has metastatic melanoma with known metastases to the brain and spine. ALLERGIES: None. MEDICATIONS: Tamsulosin, acetaminophen, diphenhydramine, oxycodone, finasteride, gabapentin, MiraLAX . PHYSICAL EXAMINATION: VITAL SIGNS: His blood pressure is 108/78, his heart rate is 84, his respirat ory rate is 14. His oxygen saturation is 98% on room air. GENERAL APPEARANCE: He is lying comforta jono in the intensive care unit bed. HEENT: Pupils equal and reactive. Mucous membranes and mouth moist. NECK: Supple. CARDIOVASCULAR: S1, S2. Soft systolic murmur, le ft sternal border. No diastolic murmur. No S3, S4. No rubs. PULMONARY: Rhonchi bilaterally. No rales, wheezing, or dullness. ABDOMEN: Soft, nontender, without masses. EXTREMITIES: No edema, in flammation, or ulceration. NEUROLOGIC: Cranial nerves 2 through 12 appear to be grossly intact, but are not tested well right now. The patient is tired and not getting up and walking, so the gait is not examined. IMAGING STUDIES: The patient has had a chest x-ray which shows poor inspiration, possible right uppe r lobe aspiration. His brain MRI shows widespread metastatic disease, worse than in July of 2017 . MRI of the thoracic spine shows progression of metastatic disease of thoracic spine compared with December 2016, including right paraspinous soft tissue mass at T2. Multiple pathologic compression fractu res. A scapular x-ray taken demonstrated no pathologic fracture or discernible bone lesion in the right sc apula, 2 views. Echocardiographic study was obtained, and demonstrates no left ventricular hypertrop hy. Normal size left ventricle. Global LV systolic function normal. EF 60%. No regional wall macy on abnormalities. Trivial mitral regurgitation. Trivial tricuspid regurgitation. I am unable, for whatever reason, to open his EKG on the computer. I have been trying multiple times today. It is reported as showing low voltage, and now actually I have a copy of it, so I can see th at it is sinus tachycardia with diffuse nonspecific ST-T changes, and low voltage in II, III, aVL, aV F. LABORATORIES: He came in with a white count of 19,000, a hematocrit of 45, and a platelet count of 4 62. He, on the next day, has a white count of 10,000, hematocrit has dropped to 35, and his platelet count is 234. He has a normal INR. His sodium is 135, potassium 4.5, chloride 105, CO2 of 18, BUN 12, creatinine 1.3, glucose was 167/171/157. Alkaline phosphatase 81. Troponin 0.37/0.80/0.64. BNP 571. Albumin low at 3.3. ASSESSMENT AND PLAN: 1. Troponin elevation. The cause for this troponin elevation is not clear. He may well have diseas e involving his pericardium. He may have disease pressing on his heart as well. a. However, he is not short of breath. He is not having chest discomfort, and Cancer Service can de cide if they think it is worth getting more MRIs of his thorax. b. From our point of view, I see no reason, with all his other problems and issues, to do anything m ore aggressive about this. Specifically, I would not do a stress test. I would not do nuclear imagi ng studies. His echocardiographic study is normal. He has good wall motion. He has an excellent ej ection fraction. I think we would do best to just follow him clinically. He has had a very hard go of this, and is doing very well with a very discouraging situation. 2. Multiple myeloma. 3. Metastatic disease. 4. Bladder atonia. Thank you very much for asking me to see this patient. I will follow him closely with you. I have t alked to the hospitalists about him. All of his partner's and his questions have been answered. /[id number]/MODL
--- NOTE | 2017-08-25 19:54 | GCON ---
[f rep st] CONSULTATION NEW PATIENT CONSULT REFERRING PHYSICIAN: Olga Puckett MD REASON FOR CONSULTATION: Patient known to Dr. Nolvia Avery with stage IV cutaneous melanoma. REASON FOR ADMISSION: Seizure. HISTORY OF PRESENT ILLNESS: The patient diagnosed in January 2017 with stage IV cutaneous melanoma. He presented with a lot of subcutaneous disease and lesion in the C-spine that required resection by Dr Nanette Goel. Patient was discovered to have a BRAF V600E and was started on dual-targeted therap y with Mekinist and dabrafenib. Unfortunately, since the time of initiating therapy, the patient has had significant toxicities from therapy, including fevers up to 104, requiring multiple hospital adm issions to rule out sepsis. He has not been on full-dose therapy, and his therapy has been intermitt ent with some drug vacations. Most recently, about 2 weeks ago, the patient was hospitalized with di fficulty urinating. His admission creatinine was quite high at 10. Ultrasound showed no evidence of hydronephrosis nephrosis. With placement of a Reno catheter, he had diuresis, and his creatinine b adali to come down. He did have nausea and vomiting. An MRI of the brain showed increasing brain met astasis since November 2016 study. These were treated with dexamethasone alone. His Neurontin dose was decreased because of renal function. MRI of the pelvis showed osseous metastatic disease throughout the sacrum and pelvis, increased since January 2017, and 1 lesion abutting the S1 nerve root. He last saw Dr. Nolvia Avery on 08/19/2017 and talked about options going forward. Unfortunately, the patient w as admitted on 08/24/2017 after having seizure activity early that morning. He had several witnessed seizures both by significant other and EMS. CT was done, suggesting possible small hemorrhage. MRI was repeated showing what looks like progressive disease in the brain, although compared to noncontr ast MRI that was done on August 14. He is on Keppra in the ICU and back on dexamethasone at a dose of 12 mg q.6. Neurosurgery has evaluated and also ordered thoracic and cervical spine. Unfortunately, thoracic and cervical spine MRI demonstrate progressive disease there, including a right paraspinous soft tissue mass at T2 and multiple compression fractures. No evidence of metastatic disease in the thoracic spi nal cord. C-spine MRI demonstrates sites of previous surgery, C2 to C4, and 3.2 cm mass extending po sterolaterally from right facet of T2, compatible with metastasis. The patient is currently somewhat aphasic. Significant other thinks it might be due to his pain medi cations. He is having pain where lesions were mentioned above. Laboratory analysis shows white blood cell count of 10.4, hemoglobin 12.1, hematocrit 35.3, platelet count of 234,000. INR 1. Sodium 135 , creatinine has come down to 1.3, glucose 157, AST 32, ALT 81, alkaline phosphatase 121, albumin 3.0 . Urine was not significant. PAST MEDICAL HISTORY: As described above. FAMILY HISTORY: Brother has prostate cancer. 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 He is accompanied by his girlfriend today. REVIEW OF SYSTEMS: As per HPI, otherwise negative. He denies cough. There is a new subcutaneous no dule, right upper back, that is growing. Denies abdominal pain, nausea, vomiting. Is not having dif ficulty moving his extremities. Denies headaches or visual changes. PHYSICAL EXAM: VITAL SIGNS: Blood pressure 108/78, heart rate 84, O2 saturation 98% on room air, te mp 37. GENERAL: Looks his stated age. Fatigued-appearing, but not in acute distress. HEENT: Anic teric. Oropharynx is clear. NECK: Supple. HEART: Regular rate and rhythm. LUNGS: Clear anterio rly. ABDOMEN: Soft, nontender. No distention. Bowel sounds positive. LOWER EXTREMITIES: No cara a. NEUROLOGIC: The patient appears aphasic, but he is following commands. LABS AND IMAGING: As mentioned above. IMPRESSION AND PLAN: 61-year-old gentleman with BRAF mutated, stage IV cutaneous melanoma, admitted for seizure. 1. Seizure. Metastases appear slightly worse with associated edema on scan. No surgical interventi on deemed appropriate at this time. He is on dexamethasone and Keppra and has been seizure-free for over 24 hours. Patient really needs to be back on some form of therapy if we are going to continue t o treat this disease that is rapidly progressing and aggressive. They do have a second opinion angelica jimenez at the [facility], I believe, on September 02. I think it would be appropriate to start him back on full-dose Mekinist and dabrafenib and see if we can get him through the toxicities until that appointment. He has not had systemic staging scans, which would include a CT abdomen and pelvi s. He clearly is progressing in thoracic and cervical spine. Certainly could be a role for radiatio n; however, melanoma is not sensitive to radiation. This would be temporizing. I would favor going back on targeted therapy which is also DICTAPHONE TRANSCRIBER penetrable. We also talked about option of dual immunothe rapy with CTLA-4 and PDL-1 inhibition, but I think before second opinion, it would be best to start h im back on targeted therapy. If his creatinine continues to be stable tomorrow, I think we could res ume this. 2. Cervical and thoracic spine lesions. Again, as per #1, melanoma tends to be less radiation sensi tive, and would prefer targeted therapy as this would shrink these lesions and allow for some pain co ntrol. Immunotherapy, again, would also be an option, but slower to show response. Would continue c urrent pain management. 3. Previous obstructive uropathy. Creatinine has improved. Will discuss with Nephrology whether CT with contrast would be appropriate tomorrow, given recent MRI and recent hospital admission for ayesha l failure. 4. Depression. Definitely believe playing a role. Patient is in precontemplative stage regarding h ospice and still would favor treatment at this time. 5. Aphasia. Could be due to pain medicines, but I think a component of brain metastasis. He has me t with speech therapy and have approved him for swallowing. Will switch him to the orals we can. Will continue to follow this patient in the hospital and make recommendations. More than an hour was spent with patient, more than 50% of the time counseling and coordinating care. Case was discussed with Dr. Puckett. Images were reviewed by myself. /[id number]/MODL
[2017-08-25] MEDS: HYDROmorphONE/DILAUDID 2 MG TAB PO PRN (20:38)
[2017-08-25] MEDS: levETIRAcetam 500 MG TAB PO SCH (20:38)
[2017-08-25] MEDS: FINASTERIDE 5 MG TAB PO SCH (20:38)
[2017-08-26] MEDS: DEXAMETHASONE 4 MG/ML VIAL IVP SCH ×5 (00:16→23:55)
[2017-08-26] MEDS: NS 1,000 ML IV SCH (02:03)
[2017-08-26 04:53] LABS: PLATELET COUNT 238 10^3/uL (150-400)
--- NOTE | 2017-08-26 07:28 | SOAPPROG ---
[facility] Progress Note Assessment/Plan: Assessment: 61 yo M with widely metastatic melanoma who presented with seizure and T7 compression fracture, 6 months out from C3 corpectomy with C2-4 fusion. Plan: neuro: stable overll, right scapular pain is likely from T2 paraspinal lesion. Mr Gonzales has widely metastatic disease that has progressed in brain and thoracic spine. Patient does not have any lesions compressing spinal cord in cervical or thoracic spine. No surgical intervention will improve his pain or change his treatment course. Given his most recent series of events he may need hospice care sooner than later. mild T7 compression fracture, will have frame changer fit Jewit brace since patient is not moving towards hospice We will check x-rays of his cervical spine to evaluate his hardware. Continue on keppra 500 mg po BID for seizures please call with neuro changes discussed with Dr Pagan 08/25/17 08:33 08/25/17 08:52 f 08/26/17 07:26 08/26/17 09:35 Subjective: back pain improving, no headaches, no N/V. Objective: Vital Signs Temp Pulse Resp BP Pulse Ox 36.8 C 73 10 L 149/93 H 99 08/26/17 04:00 08/26/17 05:36 08/26/17 05:36 08/26/17 05:36 08/26/17 05:36 Laboratory Results 08/26/17 04:35 08/26/17 04:35 08/25/17 08/26/17 08/27/17 05:59 05:59 05:59 Intake Total 5028.4 4401 Output Total 3225 3350 Balance 1803.4 1051 PT 13.9 SEC (12.0-15.0) 08/24/17 10:45 INR 1.05 (0.83-1.16) 08/24/17 10:45 AAOx4, +FC PERRL, EOMI, no facial droop AFRICA x 4 + light touch ICD10 Worksheet Patient Problems: Problems Problem Status Onset Intracranial hemorrhage Acute Metastatic melanoma Acute Acute retention of urine Acute Fever Acute Hyperkalemia Acute Obstructive uropathy Acute Pathologic cervical vertebral fracture Acute Renal failure, acute Acute
[2017-08-26] MEDS: levETIRAcetam 500 MG TAB PO SCH ×2 (09:01→20:57)
[2017-08-26] MEDS: GABAPENTIN 100 MG CAP PO SCH (09:01)
[2017-08-26] MEDS: TAMSULOSIN HCL 0.4 MG CAP PO SCH (09:02)
[2017-08-26] MEDS: CEFEPIME HCL 2 GM in NS 100 ML IV SCH (09:02)
[2017-08-26] MEDS ORDERED: IOPAMIDOL (ISOVUE-300) 100 ML BTL ONE (10:39)
[2017-08-26] MEDS: VANCOMYCIN 1.25 GM in D5W 250 ML IV SCH (11:41)
--- NOTE | 2017-08-26 13:59 | HOSPPROG ---
Hospitalist Progress Note Assessment/Plan: 61 yo male with metastatic melanoma presents with seizure Seizure secondary to intracranial mets - neurosurg following. cont keppra, dex seizure precautions ?Sepsis - Doubt. He presented with tachycardia and leukocytosis, but afebrile with normal lactate, no hypotension, no source of infection. Indwelling watson noted. BCx's pending. UA neg, but sent after atbx. de-escalate atbx to oral levaquin for short course Metastatic melanoma - mets evident in brain (progressive since 08/11/2017), along with sacrum and pelvis. He was on dual targeted oral therapy, but this was held due to toxicities discussed with Dr. Whitaker resume targeted therapy with oral meds today Urinary retention - indwelling watson since 08/17 hospital discharge. attempted to reach button and buckle maker urologist for inpt consult at 's request, have not received a call back recommend d/c watson and see if he voids, declines this option and prefers to see urology as outpt Elevated trop - CP free, trop trending down. No WMA on echo discussed with cards, no interventions planned Encephalopathy - suspect due to progression of brain mets, possible opioid side effects, better today speech / swallow eval, cleared for regular diet Scapular pain - suspect mets pain control Full code DVT PPLX - will discuss LMWH with neurosurg Dispo - cont inpt Subjective: Pt more awake, alert today. Up in chair, interactive. Still a bit delayed with speech and word finding. No pain. Denies headaches. No more seizures. Objective: Vital Signs Temp Pulse Resp BP Pulse Ox 37.8 C 94 15 135/85 H 96 08/26/17 08:00 08/26/17 10:00 08/26/17 10:00 08/26/17 10:00 08/26/17 10:00 Laboratory Results 08/26/17 04:35 08/26/17 04:35 08/25/17 08/26/17 08/27/17 05:59 05:59 05:59 Intake Total 5028.4 4401 860 Output Total 3225 3350 1999 Balance 1803.4 1051 -1140 PT 13.9 SEC (12.0-15.0) 08/24/17 10:45 INR 1.05 (0.83-1.16) 08/24/17 10:45 - Physical Exam Constitutional: no apparent distress Eyes: PERRL Ears, Nose, Mouth, Throat: moist mucous membranes Cardiovascular: regular rate and rhythym Respiratory: no respiratory distress Gastrointestinal: normoactive bowel sounds, soft, non-tender abdomen Skin: warm Musculoskeletal: full muscle strength Neurologic: AAOx3 Psychiatric: other (delayed speech, word finding difficulties) ICD10 Worksheet Patient Problems: Problems Problem Status Onset Intracranial hemorrhage Acute Metastatic melanoma Acute Palliative care encounter Acute Acute retention of urine Acute Fever Acute Hyperkalemia Acute Obstructive uropathy Acute Pathologic cervical vertebral fracture Acute Renal failure, acute Acute
--- NOTE | 2017-08-26 15:41 | PDPCPN ---
Palliative Care Progress Note Assessment/Plan: Referring provider: Dr Puckett Reason for consult: Complex medical decision making Symptom control HPI: Chuck Gonzales is a 61 year old with metastatic melanoma with mets to brain and bone admitted to the hospital for new onset seizures. Started on dexamethasone and keppra. MRI of brain with possible progression of known brain mets. Dx in [address] Avery as outpt. Has been on/off dual regimen sometimes held due to toxicities. 5th admission in the past 6 months with last admit 1 week prior for BASILIO 2/2 bladder atony with chronic watson. Is planning on seeking a second opinion at [facility] next week. Palliative care consulted for complex medical decision making. Met with Chuck and his SO taz at the bedside this afternoon. Taz and Chuck shared their Journey over the past few months of dealing with cancer. They want to try chemo to extend his life even if it may come with many more symptoms or decline in health. They both understand the disease is not curable but are hoping for SAMIR and a prolonged life in the measure of years. Chuck states he has thought of changes to his physical health and what it means as far as a good quality of life. He has accepted more physical limitations but "wants to keep my brain". Meaning that he values being awake and aware. He has lost some independence and feels frustrated by this at times. We talked about discussing his wishes now including things like living on life support, being in a wheelchair, needing increased caregiving help, and more frequent hospitalizations. While he hopes he will not decline he is also understanding the changes he is going through and is willing to have increase in symptoms/ hospitalizations in order to prolong his life with cancer directed treatment. Also talked about support at home and looking into private duty caregivers or asking friends/family for more support. Assessment: Physical: - Pain: skeletal pain - in GALINA brace - tylenol PRN - on gabapentin 100 mg QD - recently decreased due to BASILIO could consider increasing if needed - on dexamethasone- this is very helpful for inflammatory pain 2/2 bone mets - might consider NSAIDs if off of steroids - weakness: - PT/OT as able - constipation - at risk if using opiates, continue bowel regimen with senna and colace Emotional/psychological: Depressed affect: - has seen a clinical psychologist in the past and is planning on continuing this once home - would benefit from ongoing psychosocial support to help with loss of independence Advanced Care Planning: Is patient decisional?: Yes Code Status: Full MD POA: NANCY Harris is MDPOA Plan: Return home when medically ready. Has been involved with HC in the past. Might also benefit from private duty caregivers to help. Subjective: My pain is better Objective: Social History: SO Taz very involved. Has 4 sons from previous marriages, 1 local. 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 Enjoys spending time with family and friends. Medication list reviewed ROS: General: fatigue, weakness, weight loss ENT: negative Resp: cough GI: negative : chronic watson MS: skeleton pain Skin: negative Neuro: negative Psych: negative Functional assessment: PPS: 50% Functional status: needs some assistance with ADLs Vital Signs Temp Pulse Resp BP Pulse Ox 37.8 C 94 15 135/85 H 96 08/26/17 08:00 08/26/17 10:00 08/26/17 10:00 08/26/17 10:00 08/26/17 10:00 Laboratory Results 08/26/17 04:35 08/26/17 04:35 08/25/17 08/26/17 08/27/17 05:59 05:59 05:59 Intake Total 5028.4 4401 860 Output Total 3225 3350 1999 Balance 1803.4 1051 -1140 PT 13.9 SEC (12.0-15.0) 08/24/17 10:45 INR 1.05 (0.83-1.16) 08/24/17 10:45 Physical Exam - Physical Exam General Appearance: alert, no apparent distress Respiratory: No respiratory distress, No accessory muscle use Skin: normal color, warm/dry Extremities: No pedal edema Neuro/Psych: alert, oriented x 3 ICD10 Worksheet Patient Problems: Problems Problem Status Onset Intracranial hemorrhage Acute Metastatic melanoma Acute Palliative care encounter Acute Acute retention of urine Acute Fever Acute Hyperkalemia Acute Obstructive uropathy Acute Pathologic cervical vertebral fracture Acute Renal failure, acute Acute - ICD10 Problem Qualifiers (1) Palliative care encounter
--- NOTE | 2017-08-26 16:19 | SOAPPROG ---
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 Seizure - brain mets slightly worse w associated edema no further seizure activity since since admission now that on dex/keppra 2. Stage IV melanoma - clearly progressing in brain (and bone w worsening osseous dz as well); also has new cutaneous lesion CT CAP yesterday seems to show improvement in visceral dz but some imaging compared to 01/2017 and not most recent in 04/2017 If that is the case, he is having a mixed response and may benefit from repeat biopsy He has second opinion at on 09/02/2017 but would recommend he go back on full dose targeted therapy w mekinist(2mg daily) and dabrafenib (150mg po BID) given progression of brain mets he has had a difficult time tolerating drugs due to fevers but I would not say he has failed treatment as he has had several treatment interruptions and intially had a dramatic clinical response immunotherapy another option going forward 3. Cervical and spine lesions - NSG has seen; in a brace now holding on any XRT for now while restarting meds4. Obstructive uropathy - recommend seeing nephrology while here to see if can get watson out Cr improved 4. Depression 5. Aphasia - improved will discuss case w Dr Puckett 08/26/17 16:09 Subjective: better tody out of icu in a back brace Objective: Vital Signs Temp Pulse Resp BP Pulse Ox 37.8 C 94 15 135/85 H 96 08/26/17 08:00 08/26/17 10:00 08/26/17 10:00 08/26/17 10:00 08/26/17 10:00 Laboratory Results 08/26/17 04:35 08/26/17 04:35 08/25/17 08/26/17 08/27/17 05:59 05:59 05:59 Intake Total 5028.4 4401 860 Output Total 3225 3350 2000 Balance 1803.4 1051 -1140 PT 13.9 SEC (12.0-15.0) 08/24/17 10:45 INR 1.05 (0.83-1.16) 08/24/17 10:45 Gen - NAD, sitting in chair HEENT - anicteric, mmm CV - RRR Chest - clear; no subQ nodule on R upper back Abd - soft, NT Ext - no edema Neuo - nonfocal, aphasia improved ICD10 Worksheet Patient Problems: Problems Problem Status Onset Intracranial hemorrhage Acute Metastatic melanoma Acute Palliative care encounter Acute Acute retention of urine Acute Fever Acute Hyperkalemia Acute Obstructive uropathy Acute Pathologic cervical vertebral fracture Acute Renal failure, acute Acute
[2017-08-26] MEDS: FINASTERIDE 5 MG TAB PO SCH (20:57)
[2017-08-27] MEDS: diphenhydrAMINE 25 MG CAP PO PRN ×2 (02:50→22:06)
[2017-08-27 04:38] LABS: PLATELET COUNT 263 10^3/uL (150-400)
[2017-08-27] MEDS: DEXAMETHASONE 4 MG/ML VIAL IVP SCH (05:33)
[2017-08-27] MEDS: Trametinib Dimethyl Sulfoxide [Mekinist] 2 MG PO SCH (08:11)
[2017-08-27] MEDS: DABRAFENIB MESYLATE PO SCH ×2 (08:14→20:36)
--- NOTE | 2017-08-27 08:35 | NEUSURGPN ---
Assessment/Plan: Assessment: 61 yo M with widely metastatic melanoma who presented with seizure and T7 compression fracture, 6 months out from C3 corpectomy with C2-4 fusion. Plan: -neuro: stable overall, right scapular pain is likely from T2 paraspinal lesion. Mr Gonzales has widely metastatic disease that has progressed in brain and thoracic spine. Patient does not have any lesions compressing spinal cord in cervical or thoracic spine. No surgical intervention will improve his pain or change his treatment course. Given his most recent series of events he may need hospice care sooner than later. -mild T7 compression fracture, pt has angelito brace -thoracic spine xrays pending today -Cervical xrays show stable hardware -Continue on keppra 500 mg po BID for seizures -please call with neuro changes -Will need fu in 4 weeks with T spine xrays -discussed with Dr Pagan Subjective: Pt sleeping in bed, partner at bedside. Objective: Sleepy but awakens easily NAD VSS MAEx4 Motor 5/5 BLE +LT Urinary Catheter in Place: Yes Urinary Catheter Indication: Urinary Tract Obstruction Catheter Insertion Date: 08/11/17 - Physician Discussed Patient with : [facility] Physical Exam - Vitals, I&O, Labs I and O 08/26/17 08/27/17 08/28/17 05:59 05:59 05:59 Intake Total 4401 1910 Output Total 3350 4800 Balance 1051 -2890 Intake: Oral (ml) 520 1050 IV Intake (ml) 1431 IV Infused (ml) 2450 860 Cefepime HCl 2 gm In Ns 100 100 100 ml @ 200 mls/hr IV Q12HRS JONATHAN Rx#:[id number] Ns 1,000 ml @ 125 mls/hr 2100 510 IV CONT JONATHAN Rx#: [id number] Vancomycin 1 gm In D5w 250 250 ml @ 250 mls/hr IV Q24H JONATHAN Rx#:[id number] Vancomycin 1.25 gm In D5w 250 250 ml @ 250 mls/hr IV DAILY@1100 JONATHAN Rx#: [id number] Output: Urine (ml) 3350 4800 Catheter 3350 650 Toilet 4150 Other: Intake Quantity Yes Yes Sufficient Number of Voids Toilet 1 Number of Stools Catheter 1 Toilet 1 Vital Signs Temp Pulse Resp BP Pulse Ox 36.5 C 69 16 131/72 H 93 08/27/17 07:35 08/27/17 07:35 08/27/17 07:35 08/27/17 07:35 08/27/17 07:35 Laboratory Results 08/27/17 04:12 08/27/17 04:12 ICD10 Worksheet Patient Problems: Problems Problem Status Onset Intracranial hemorrhage Acute Metastatic melanoma Acute Palliative care encounter Acute Acute retention of urine Acute Fever Acute Hyperkalemia Acute Obstructive uropathy Acute Pathologic cervical vertebral fracture Acute Renal failure, acute Acute
--- NOTE | 2017-08-27 08:53 | HOSPPROG ---
Hospitalist Progress Note Assessment/Plan: 61 yo male with metastatic melanoma presents with seizure Seizure secondary to intracranial mets - neurosurg following. cont keppra, dex (reduce to q8h) seizure precautions ?Sepsis - Doubt. He presented with tachycardia and leukocytosis, but afebrile with normal lactate, no hypotension, no source of infection. Indwelling watson noted. BCx's pending. UA neg, but sent after atbx. complete course of oral levaquin Metastatic melanoma - mets evident in brain (progressive since 08/11/2017), along with sacrum and pelvis. He was on dual targeted oral therapy, but this was held due to toxicities discussed with Dr. Whitaker resume targeted therapy with oral meds today close f/u with Dr. Avery at [facility] Urinary retention - indwelling watson since 08/17 hospital discharge. yesterday , i recommended we d/c the watson, was unable to reach urology for inpt consult refuses to d/c watsno, prefers outpt urology f/u which is reasonable they will call urology clinic to reschedule appt Elevated trop - CP free, trop trending down. No WMA on echo discussed with cards, no interventions planned Encephalopathy - suspect due to progression of brain mets, possible opioid side effects, better today speech / swallow eval, cleared for regular diet Scapular pain - suspect mets pain control T7 compression fracture - neurosurg eval appreciated. cont angelito brace repeat xrays today Gait instability - PT/OT currently recommending inpt rehab. Re-evaluate today and if deemed safe for dc home, will arrange, o/w may need CM to work on inpt rehab placement Full code DVT PPLX - LMWH, ok'd by neurosurg Dispo - cont inpt Subjective: Pt is sleepy, answers questions appropriately. Denies pain. No problems overnight. Objective: Vital Signs Temp Pulse Resp BP Pulse Ox 36.5 C 69 16 131/72 H 93 08/27/17 07:35 08/27/17 07:35 08/27/17 07:35 08/27/17 07:35 08/27/17 07:35 Laboratory Results 08/27/17 04:12 08/27/17 04:12 08/26/17 08/27/17 08/28/17 05:59 05:59 05:59 Intake Total 4401 1910 Output Total 7230 4770 Balance 1051 -2890 PT 13.9 SEC (12.0-15.0) 08/24/17 10:45 INR 1.05 (0.83-1.16) 08/24/17 10:45 - Physical Exam Constitutional: no apparent distress Eyes: PERRL Ears, Nose, Mouth, Throat: moist mucous membranes Cardiovascular: regular rate and rhythym Respiratory: no respiratory distress Gastrointestinal: normoactive bowel sounds, soft, non-tender abdomen Skin: warm Musculoskeletal: generalized weakness Psychiatric: encephalopathic ICD10 Worksheet Patient Problems: Problems Problem Status Onset Intracranial hemorrhage Acute Metastatic melanoma Acute Palliative care encounter Acute Acute retention of urine Acute Fever Acute Hyperkalemia Acute Obstructive uropathy Acute Pathologic cervical vertebral fracture Acute Renal failure, acute Acute
[2017-08-27] MEDS ORDERED: Trametinib Dimethyl Sulfoxide [Mekinist] 2 MG PO SCH (09:00)
[2017-08-27] MEDS ORDERED: DEXAMETHASONE 4 MG/ML VIAL IVP SCH (09:00)
[2017-08-27] MEDS: TAMSULOSIN HCL 0.4 MG CAP PO SCH (10:27)
[2017-08-27] MEDS: GABAPENTIN 100 MG CAP PO SCH (10:27)
[2017-08-27] MEDS: levETIRAcetam 500 MG TAB PO SCH ×2 (10:28→22:06)
[2017-08-27] MEDS: ENOXAPARIN 40 MG/0.4 ML SYR SC SCH (10:28)
[2017-08-27] MEDS: DEXAMETHASONE 4 MG TAB PO SCH ×3 (10:45→22:06)
--- NOTE | 2017-08-27 11:52 | SOAPPROG ---
[facility] Progress Note Assessment/Plan: Assessment: Elevated troponin The patient has many major medical problems. There is no indication that he has significant cardiovascular issues at this time. We will consider no further workup and if there is something we need to do please call us at any time. Plan: 08/27/17 11:49 Objective: Vital Signs Temp Pulse Resp BP Pulse Ox 36.5 C 69 16 131/72 H 93 08/27/17 07:35 08/27/17 07:35 08/27/17 07:35 08/27/17 07:35 08/27/17 07:35 Laboratory Results 08/27/17 04:12 08/27/17 04:12 08/26/17 08/27/17 08/28/17 05:59 05:59 05:59 Intake Total 4401 1910 Output Total 3350 4800 Balance 1051 -2890 PT 13.9 SEC (12.0-15.0) 08/24/17 10:45 INR 1.05 (0.83-1.16) 08/24/17 10:45 ICD10 Worksheet Patient Problems: Problems Problem Status Onset Intracranial hemorrhage Acute Metastatic melanoma Acute Palliative care encounter Acute Acute retention of urine Acute Fever Acute Hyperkalemia Acute Obstructive uropathy Acute Pathologic cervical vertebral fracture Acute Renal failure, acute Acute
--- NOTE | 2017-08-27 12:59 | ASMTCMCOM ---
CM Note CM Note Notes: Chart reviewed. spoke with MD. Patient has had palliative care meeting Does not qualify for inpatient rehab at this point. They are resistant to SNF. I will provide them with the senior blue book and options to hire help to come into the home. notified. CM to follow. Plan TBD. Date Signed: 08/27/2017 12:59 PM Electronically Signed By:Mary De Los Santos RN
--- NOTE | 2017-08-27 13:26 | ASMTCMCOM ---
CM Note CM Note Notes: Spoke with Kimberly patient's partner. They are uncertain of next step. I gave her Blue book and suggested she might try private agencies to help at home in addition to home health and we also discussed the possibilities of SNF in area. I told her that SNF could be a back up plan as patient may or may not improve in status overnight. I will place referrals to local facilities in the event they may elect to go to SNF. Patient had been current tanmay [facility] and I will notify them as well. CM to follow. Date Signed: 08/27/2017 01:26 PM Electronically Signed By:Mary De Los Santos RN
--- NOTE | 2017-08-27 15:32 | PDPCPN ---
Palliative Care Progress Note Assessment/Plan: HPI: Chuck Gonzales is a 61 year old with metastatic melanoma with mets to brain and bone admitted to the hospital for new onset seizures. Started on dexamethasone and keppra. MRI of brain with possible progression of known brain mets. Dx in [address] Avery as outpt. Has been on/off dual regimen sometimes held due to toxicities. 5th admission in the past 6 months with last admit 1 week prior for BASILIO 2/2 bladder atony with chronic watson. Is planning on seeking a second opinion at [facility] next week. Palliative care consulted for complex medical decision making. Followed up with Chuck and Kimberly this afternoon. Per Kimberly Chuck is a little more tired today and not as talkative. Chuck is hoping to get home as soon as possible. Discussed having help at home at least in the short term. Appetite good, denies any pain. Was up to the bathroom a few times today with assistance. Assessment: Physical: - Pain: skeletal pain - in brace - tylenol PRN - on gabapentin 100 mg QD - recently decreased due to BASILIO could consider increasing if needed - on dexamethasone- this is very helpful for inflammatory pain 2/2 bone mets - might consider NSAIDs if off of steroids - weakness: - PT/OT as able - constipation - at risk if using opiates, continue bowel regimen with senna and colace Emotional/psychological: Depressed affect: - has seen a clinical psychologist in the past and is planning on continuing this once home - would benefit from ongoing psychosocial support to help with loss of independence Advanced Care Planning: Is patient decisional?: Yes Code Status: Full MD POA: SO Kimberly is MDPOA Plan: Chuck is hoping to get home soon, he prefers HHC vs SNF. Kimberly working on hiring private duty caregivers but also wants to see how strong he is tomorrow before making any decisions. Subjective: I wish I was going home today Objective: Vital Signs Temp Pulse Resp BP Pulse Ox 36.5 C 109 H 18 98/70 L 97 08/27/17 07:35 08/27/17 12:00 08/27/17 12:00 08/27/17 12:00 08/27/17 12:00 Laboratory Results 08/27/17 04:12 08/27/17 04:12 08/26/17 08/27/17 08/28/17 05:59 05:59 05:59 Intake Total 4401 1910 Output Total 3350 4800 750 Balance 1051 -2890 -750 PT 13.9 SEC (12.0-15.0) 08/24/17 10:45 INR 1.05 (0.83-1.16) 08/24/17 10:45 ICD10 Worksheet Patient Problems: Problems Problem Status Onset Intracranial hemorrhage Acute Metastatic melanoma Acute Palliative care encounter Acute Acute retention of urine Acute Fever Acute Hyperkalemia Acute Obstructive uropathy Acute Pathologic cervical vertebral fracture Acute Renal failure, acute Acute - ICD10 Problem Qualifiers (1) Palliative care encounter
[2017-08-27 16:02] VITALS: RESP 16
[2017-08-27] MEDS: HYDROmorphONE/DILAUDID 2 MG TAB PO PRN (22:06)
[2017-08-27] MEDS: FINASTERIDE 5 MG TAB PO SCH (22:07)
[2017-08-28 04:53] LABS: PLATELET COUNT 268 10^3/uL (150-400)
[2017-08-28] MEDS: DEXAMETHASONE 4 MG TAB PO SCH ×2 (06:13→13:52)
[2017-08-28] MEDS: DABRAFENIB MESYLATE PO SCH (08:31)
[2017-08-28] MEDS: Trametinib Dimethyl Sulfoxide [Mekinist] 2 MG PO SCH (08:33)
[2017-08-28] MEDS: TAMSULOSIN HCL 0.4 MG CAP PO SCH (09:33)
[2017-08-28] MEDS: ENOXAPARIN 40 MG/0.4 ML SYR SC SCH (09:33)
[2017-08-28] MEDS: GABAPENTIN 100 MG CAP PO SCH (09:33)
[2017-08-28] MEDS: levETIRAcetam 500 MG TAB PO SCH (09:33)
--- NOTE | 2017-08-28 11:49 | ASMTCMCOM ---
CM Note CM Note Notes: Met with pt and partner Kimberly to discuss DC plan and other needs. Kimberly is concerned about pt's weakness and welcomed adding IT SENIOR SOFTWARE ENGINEER JAVA to the RN/OT/PT they are getting with [facility]. Alerted [facility]. Kimberly is planning on hiring pvt duty but will have help from family and friends for the first few days following DC. Kimberly also glad that pt starting to show willingness to use a walker. Gave Kimberly list of loan closets in the [place] area. Made a referral to [email or web address] for pt. 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 C/M will continue to follow. Date Signed: 08/28/2017 11:49 AM Electronically Signed By:Larisa Robbins LCSW
[2017-08-28 12:18] VITALS: BP 120/80; PULSE 89; TEMP 97.2; O2SAT 95
--- NOTE | 2017-08-28 14:16 | PDIAF ---
- Diagnosis Diagnosis: metastatic melanoma Code Status: Full Code - Medication Management Discharge Medications: Medications to Continue on Transfer Acetaminophen [Tylenol ES 500 mg (*)] 1,000 mg PO Q6 PRN 03/03/17 [Last Taken 22:30] Finasteride [Proscar 5 MG (*)] 5 mg PO HS 03/03/17 [Last Taken 08/23/17 22:30] diphenhydrAMINE [Benadryl 50 MG (*)] 50 mg PO HS PRN 03/03/17 [Last Taken ] Polyethylene Glycol 3350 [Miralax 17 gm (*)] 17 gm PO DAILY PRN 03/13/17 [Last Taken 3 Days Ago ~08/08/17] Gabapentin [Neurontin 100 MG (*)] 100 mg PO DAILY #30 cap 08/17/17 [Last Taken 08/24/17 01:30] Tamsulosin HCl [Flomax 0.4 MG (*)] 0.4 mg PO DAILY #30 cap 08/17/17 [Last Taken 08/24/17 01:30] oxyCODONE IR [Oxycodone Ir (*)] 5 mg PO Q6H 08/24/17 [Last Taken 08/24/17 02:15] Dabrafenib Mesylate [Tafinlar] 150 mg PO BID@0730,2100 08/26/17 [Last Taken Unknown] Trametinib Dimethyl Sulfoxide [Mekinist] 2 mg PO DAILY@0730 08/26/17 [Last Taken Unknown] Dexamethasone 4 mg PO BID #30 tablet 08/27/17 [Last Taken Unknown] levETIRAcetam [Keppra 500 mg (*)] 500 mg PO BID #30 tab 08/27/17 [Last Taken Unknown] levOFLOXACIN [levAQUIN (*)] 750 mg PO DAILY AT 10AM #3 tab 08/27/17 [Last Taken Unknown] Discharge Medications: Refer to the Discharge Home Medication list for PRN reason. - Orders Services needed: Home Care, Registered Nurse, Certified Systems Coordinator, Physical Therapy, Occupational Therapy Home Care Face to Face: I certify that this patient was under my care and that I had the required [id number] encounter meeting the encounter requirements on the discharge day. My findings support the fact that the patient is homebound as defined in Home Care Face to Face Continued: [facility] Chapter 7 Medicare Benefits Manual 30.1.1 , The condition of the patient is such that there exists a normal inability to leave home and consequently, leaving home would require a considerable and taxing effort. Isolation Type: Chemotherapy Isolation Diet Recommendation: no restrictions on diet Diet Texture: Regular Texture Diet, Thin Liquids, Meds Whole w/Liquids - Follow Up Care Current Providers and Referrals: Patient,NotPresent [Unknown] - As per Instructions Benitez Avery MD [Medical Doctor] -
--- NOTE | 2017-08-28 14:18 | ASMTCMCOM ---
CM Note CM Note Notes: Pt ready for DC today. [facility] alerted. Date Signed: 08/28/2017 02:18 PM Electronically Signed By:Larisa Robbins LCSW
--- NOTE | 2017-08-28 16:02 | SOAPPROG ---
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 Rec to restart full dose targeted therapy w mekinist (2mg daily) and dabrafenib (150mg po BID) given progression. He had high fever due to dabrafenib in past. He is now on steroids and will see if that will prevent. There also may be information about colchicine preventing. Recommended holding off restarting that. If he has fever he is to hold dabrafenib and call us. He has second opinion at on 09/02/2017 * Seizure: brain mets slightly worse w associated edema. No further seizure activity since since admission now that on dex/keppra. * Obstructive uropathy: Cr improved * Increased LFTs: started prior to starting chemo; ?related to dex or abx. Will have him follow up. Seems to have improved today compared to yesterday Subjective: with patient and going home today. No acute complaints. Objective: Vital Signs Temp Pulse Resp BP Pulse Ox 36.2 C 89 16 120/80 95 08/28/17 12:00 08/28/17 12:00 08/28/17 12:00 08/28/17 12:00 08/28/17 12:00 Laboratory Results 08/28/17 04:10 08/28/17 04:20 08/27/17 08/28/17 08/29/17 05:59 05:59 05:59 Intake Total 1910 Output Total 4800 2900 775 Balance -2890 -2900 -775 PT 13.9 SEC (12.0-15.0) 08/24/17 10:45 INR 1.05 (0.83-1.16) 08/24/17 10:45 Physical Exam - Physical Exam General Appearance: no apparent distress Respiratory: lungs clear Cardiac/Chest: regular rate, rhythm Neuro/Psych: other (flat affect) ICD10 Worksheet Patient Problems: Problems Problem Status Onset Intracranial hemorrhage Acute Metastatic melanoma Acute Palliative care encounter Acute Acute retention of urine Acute Fever Acute Hyperkalemia Acute Obstructive uropathy Acute Pathologic cervical vertebral fracture Acute Renal failure, acute Acute
--- NOTE | 2017-08-29 03:50 | GDS ---
[f rep st] DISCHARGE SUMMARY DISCHARGE DIAGNOSES: 1. Seizure secondary to brain metastases. 2. Metastatic melanoma. 3. Urinary retention with indwelling Reno. 4. Encephalopathy. 5. Gait instability. 6. T7 compression fracture. 7. Elevated liver function tests. CONSULTANTS: 1. Dr. Barnett, Neurosurgery. 2. Dr. Fannie Whitaker, Oncology. 3. Dr. Sal Zimmerman, Cardiology. HISTORY OF DETAILS: Please see the history and physical dated August 24, 2017. In brief the patient is a 61-year-old male with a history of metastatic melanoma, [facility] He is admitted to the hospital for further management. On admission, there was some question of sepsis given his presentation of tachycardia and leukocytosi s. However, he was afebrile with a normal lactate, no hypotension and no source of infection. Blood cultures were negative. Urinalysis was also negative. He was initially treated with broad-spectrum antibiotics. This was stepped down to oral Levaquin and will finish 1 week of antibiotic therapy. HOSPITAL COURSE: The patient's seizure was presumed secondary to metastatic melanoma. A brain MRI w as performed which showed significant interval progression in his widespread metastatic disease of th e brain. He was started on IV dexamethasone and Keppra. He remained seizure-free throughout the res t of the hospitalization. He did have an abnormal EKG on arrival with a troponin elevation to 0.8. The troponin then trended down. Cardiology consult was obtained and the question was raised if he co uld have metastatic disease involving his pericardium. He was chest pain free throughout the hospita lization. Cardiology did not recommend any further risk stratification or invasive testing. He had a normal echocardiogram without wall motion abnormality and a normal ejection fraction. A T7 leland alma fracture was also noted and Neurosurgery evaluated the patient. He was placed in a Lorraine brace and followup films were obtained. In addition, he had some problems with urinary retention during h is hospitalization at the end of July and has had an indwelling Reno since then. They had a Uro logy followup appointment, which they missed due to this hospitalization. I recommended we discontin ue the Reno to see if he voids, though the preferred to leave the Reno in and reschedule their outpatient Urology appointment which will be this Wednesday. He was a bit encephalopathic initially, presumably due to his brain metastases. He was evaluated by speech and deemed safe for swallowing fo r a regular diet. He did also have some associated gait instability and our therapy team initially r ecommended inpatient rehab. He did do a little bit better therapy on the day of discharge, and they were agreeable to patient going home with home health care. I did recommend to the patient and his w ghazal SNF rehab and they declined this. DISPOSITION: The patient is discharged home in stable condition with full home health services inclu francisco RN, PT, OT, and SYSTEMS MANAGEMENT CONSULTANT. FOLLOWUP: 1. Dr. Nolvia Avery. 2. Urology for removal of the Reno catheter. 3. Primary care. DISCHARGE MEDICATIONS: 1. Dexamethasone 4 mg p.o. twice daily, #30, no refills. 2. Keppra 500 mg p.o. twice daily, #30, no refills. 3. Levaquin 750 mg daily for 3 more days. /[id number]/MODL
--- NOTE | 2017-08-29 08:46 | ASDISCHSUM ---
Discharge Information Plan Status:Home with Home Health Medically Cleared to Leave:08/27/2017 Discharge Date:08/28/2017 04:11 PM D/C Disposition:Home Health Service ADT D/C Disposition:Home Health Service Projected Discharge Date:08/28/2017 11:00 AM Transportation at D/C: Discharge Delay Reason: Follow-Up Date:08/28/2017 11:00 AM Discharge Slot: Final Diagnosis: Placement Information Referral Type:*Home Health Care Services Referral ID:[id number] Provider Name:[facility] Address 1:[address] [place] [address] Address 2: City:[place] Selection Factors: State:[place] Referral Type:*Chcf/SNF Referral ID:[id number] Provider Name: Address 1: Phone Number: Address 2: Fax Number: City: Selection Factors: State: Patient Contact Information Contact Name:JAVED Relationship:Other Address:[address] Work Phone: City:[facility] Phone: State/Zip Code:[place] [address] Email: Financial Information Financial Class:HMO and PPO Plans Primary Plan Desc:[facility] Primary Plan Number:[id number] Secondary Plan Desc: Secondary Plan Number: Assessment Information [facility] CM Progress Note CM Note CM Note Notes: Pt readmitted following sz after DC 08/17. Pt current with [facility] and will continue with them at [place]. Met with pt's Kimberly for support. Gave her info on upcoming caregiver support group and a book for caregiver's. Pt unable to participate. CM will continue to follow. Date Signed: 08/24/2017 12:49 PM Electronically Signed By:Larisa Robbins LCSW [facility] CM Progress Note CM Note CM Note Notes: Chart reviewed. spoke with MD. Patient has had palliative care meeting Does not qualify for inpatient rehab at this point. They are resistant to SNF. I will provide them with the senior blue book and options to hire help to come into the home. MD notified. CM to follow. Plan TBD. Date Signed: 08/27/2017 12:59 PM Electronically Signed By:Mary De Los Santos RN [facility] CM Progress Note CM Note CM Note Notes: Spoke with Kimberly patient's partner. They are uncertain of next step. I gave her Blue book and suggested she might try private agencies to help at home in addition to home health and we also discussed the possibilities of SNF in area. I told her that SNF could be a back up plan as patient may or may not improve in status overnight. I will place referrals to local facilities in the event they may elect to go to SNF. Patient had been current tanmay [facility] and I will notify them as well. CM to follow. Date Signed: 08/27/2017 01:26 PM Electronically Signed By:Mary De Los Santos RN [facility] CM Progress Note CM Note CM Note Notes: Met with pt and partner Kimberly to discuss DC plan and other needs. Kimberly is concerned about pt's weakness and welcomed adding GLOBAL TECHNICAL WRITER to the RN/OT/PT they are getting with [facility]. Alerted [facility]. Kimberly is planning on hiring pvt duty but will have help from family and friends for the first few days following DC. Kimberly also glad that pt starting to show willingness to use a walker. Gave Kimberly list of loan closets in the [place] area. Made a referral to [employer] for pt. 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 C/M will continue to follow. Date Signed: 08/28/2017 11:49 AM Electronically Signed By:Larisa Robbins LCSW [facility] CM Progress Note CM Note CM Note Notes: Pt ready for DC today. [facility] alerted. Date Signed: 08/28/2017 02:18 PM Electronically Signed By:Larisa Robbins LCSW Intervention Information Intervention Type:*Incorrect Registration Date of Service:08/24/2017 02:09 PM Patient Type:Inpatient Staff Member:CHANNING Lowe Susan Hours: Discipline: Severity: Comment:
== END 2017-08-28 16:11 | disposition home health service (06) | DRG 54 ==
LOC: EDUNIT# → F2N 08:24 → OBSVTOIN 08:42 → F3N 08-26 13:35
PROVIDERS: ADMIT Family Medicine; ATTEND Hospitalist
DX: C79.31 Secondary malignant neoplasm of brain (principal); R56.9 Unspecified convulsions; G93.49 Other encephalopathy; C79.51 Secondary malignant neoplasm of bone; M84.58XA Pathological fracture in neoplastic disease, other specified site, initial encounter for fracture; Z87.311 Personal history of (healed) other pathological fracture; Z98.1 Arthrodesis status; C77.1 Secondary and unspecified malignant neoplasm of intrathoracic lymph nodes; C78.7 Secondary malignant neoplasm of liver and intrahepatic bile duct; C43.59 Malignant melanoma of other part of trunk; N31.2 Flaccid neuropathic bladder, not elsewhere classified; Z87.891 Personal history of nicotine dependence; F32.9 Major depressive disorder, single episode, unspecified
CPT/HCPCS: 92507-GN; 92523-GN; 92610-GN; 96374; 97112-GP; 97116-GP; 97161-GP; 97166-GO; 97530-GP; 97535-GO; A9585; J0360; J0692; J1100; J1170; J1650; J1953; J2060; J3370; Q9967

== ENCOUNTER 2017-09-10 13:35 | Emergency (ER) | payer OTHER ==
[2017-09-10 14:00] VITALS: PULSE 133; RESP 24; TEMP 101.5; O2SAT 94
[2017-09-10 14:10] LABS: PLATELET COUNT 227 10^3/uL (150-400)
[2017-09-10] MEDS ORDERED: NS 1,000 ML IV ONE ×2 (15:20)
--- NOTE | 2017-09-10 15:38 | EDPHY ---
H & P Time Seen by Provider: 09/10/17 15:19 HPI/ROS: HPI Fever. 61-year-old male with his . This patient has a history of metastatic melanoma. He is currently undergoing radiation therapy and oral chemotherapy by oncologist Dr. Paige Bush at the [facility]. He was recently admitted to the [facility]. He was discharged on the after 5 having radiation therapy and being started on a new oral chemotherapeutic agent. 1 of the side effects of this agent is pyrexia. He has had fevers associated with this medication. He was in the MRI suite to get an MRI of his brain just prior to coming to the emergency department when he developed fever and chills. He was sent to the emergency department for evaluation of this. His tells me that this has been a frequent occurrence since he started this medication on approximately September 07. ROS: Constitutional: As above. No weakness. Eyes: No discharge. No changes in vision. ENT: No sore throat. No nasal congestion or rhinorrhea. Respiratory: No cough. No shortness of breath. Cardiac: No chest pain, no palpitations. Gastrointestinal: No abdominal pain, no vomiting, no diarrhea. Genitourinary: No hematuria. No dysuria or increased frequency with urination. Musculoskeletal: No back pain. No neck pain. No myalgias or arthralgias. Skin: No rashes. Neurological: No headache. No focal weakness or altered sensation. Past medical history: Metastatic melanoma with metastasis to brain, lung, liver , bone. History of a pathological fracture with fusion C3. Social history: Nonsmoker. No alcohol. Here with his . Physical Exam: General Appearance: Alert, no distress. This patient is responding to questions appropriately and in full sentences. This patient appears well- hydrated and well-nourished. Eyes: Pupils equal and round no pallor or injection. No lid edema, erythema or injection. Respiratory: There are no retractions, lungs are clear to auscultation with good air movement bilaterally. Cardiovascular: Regular rate and rhythm. No murmur. Gastrointestinal: Abdomen is soft and nontender, no masses, bowel sounds normal. No focal tenderness at McBurney's point. No Glover sign. Neurological: Motor sensory function is grossly intact. Cranial nerves are normal. Gait is normal. Skin: Warm and dry, no rashes. Musculoskeletal: Neck is supple and nontender. Extremities are symmetrical. All joints range without pain or impingement. Psychiatric: No agitation. No depression. Database: EKG: Imaging: Procedures: Emergency department course: IV was established. He was started on IV normal saline. He was given 500 cc of IV normal saline. Temperature is 38.6degrees orally. Blood pressure initially 97/66. 3:50 p.m., spoke with the patient's oncologist Dr. Paige Bush and are nurse Elma. The patient's presentation to our emergency department the same as what he has been experiencing since starting this new oral chemotherapeutic agent. His blood pressures at the [facility] were in the 90s over 50s to 60s which she is here. His temperature was as high as 103degrees in their clinic. I also reviewed his blood work. His anemia is stable, his renal function and hyponatremia are stable. He does not appear toxic. At this time I do not feel that a septic workup is indicated. His oncologist is asking that we return him to the oncology suite for his MRI brain with and without contrast. The patient and his her in agreement with this plan. Return to emergency department precautions discussed. All of her questions were answered. He was discharged in good condition. Differential Diagnosis: The differential diagnosis on this patient includes but is not limited to medication reaction. Sepsis, serious bacterial infection unlikely. This represents a partial list of diagnoses considered. These considerations are based on history, physical exam, past history, reassessment and diagnostic testing. Smoking Status: Former smoker Constitutional: Initial Vital Signs Temperature (C) 38.6 C H 09/10/17 13:55 Heart Rate 133 H 09/10/17 13:55 Respiratory Rate 24 H 09/10/17 13:55 O2 Sat (%) 94 09/10/17 13:55 O2 Delivery Mode Room Air Allergies/Adverse Reactions: No Known Allergies Allergy (Verified 09/10/17 13:54) Home Medications: Medication Instructions Recorded Acetaminophen [Tylenol ES 500 mg 1,000 mg PO Q6 PRN 03/03/17 (*)] Finasteride [Proscar 5 MG (*)] 5 mg PO HS 03/03/17 diphenhydrAMINE [Benadryl 50 MG 50 mg PO HS PRN 03/03/17 (*)] Polyethylene Glycol 3350 [Miralax 17 gm PO DAILY PRN 03/13/17 17 gm (*)] Gabapentin [Neurontin 100 MG (*)] 100 mg PO DAILY #30 cap 08/17/17 Tamsulosin HCl [Flomax 0.4 MG (*)] 0.4 mg PO DAILY #30 cap 08/17/17 oxyCODONE IR [Oxycodone Ir (*)] 5 mg PO Q6H 08/24/17 Dabrafenib Mesylate [Tafinlar] 150 mg PO BID@0730,2100 08/26/17 Trametinib Dimethyl Sulfoxide 2 mg PO DAILY@0730 08/26/17 [Mekinist] Dexamethasone 4 mg PO BID #30 tablet 08/27/17 levETIRAcetam [Keppra 500 mg (*)] 500 mg PO BID #30 tab 08/27/17 levOFLOXACIN [levAQUIN (*)] 750 mg PO DAILY AT 10AM #3 tab 08/27/17 Medical Decision Making - Data Points Laboratory Results: Laboratory Results 09/10/17 14:00 09/10/17 14:00 09/10/17 09/10/17 09/10/17 15:20 14:00 14:00 WBC RBC Hgb Hct MCV MCH MCHC RDW Plt Count MPV Neut % (Auto) Lymph % (Auto) Glades % (Auto) Eos % (Auto) Baso % (Auto) Nucleat RBC Rel Count Absolute Neuts (auto) Absolute Lymphs (auto) Absolute Monos (auto) Absolute Eos (auto) Absolute Basos (auto) Absolute Nucleated RBC Immature Gran % Immature Gran # PT 13.4 SEC SEC (12.0-15.0) INR 1.00 (0.83-1.16) APTT 33.6 SEC SEC (23.0-38.0) Sodium 130 mEq/L L mEq/L (135-145) Potassium 4.4 mEq/L mEq/L (3.5-5.2) Chloride 93 mEq/L L mEq/L (97-110) Carbon Dioxide 26 mEq/l mEq/l (22-31) Anion Gap 11 mEq/L mEq/L (8-16) BUN 24 mg/dL H mg/dL (7-23) Creatinine 1.1 mg/dL mg/dL (0.7-1.3) Estimated GFR > 60 Glucose 140 mg/dL H mg/dL (70-100) Calcium 8.6 mg/dL mg/dL (8.5-10.4) Nasal Influenza A PCR Pending Nasal Influenza B PCR Pending 09/10/17 14:00 WBC 5.50 10^3/uL 10^3/uL (3.80-9.50) RBC 4.16 10^6/uL L 10^6/uL (4.40-6.38) Hgb 11.8 g/dL L g/dL (13.7-17.5) Hct 34.8 % L % (40.0-51.0) MCV 83.7 fL fL (81.5-99.8) MCH 28.4 pg pg (27.9-34.1) MCHC 33.9 g/dL g/dL (32.4-36.7) RDW 16.4 % H % (11.5-15.2) Plt Count 227 10^3/uL 10^3/uL (150-400) MPV 8.4 fL L fL (8.7-11.7) Neut % (Auto) 77.2 % H % (39.3-74.2) Lymph % (Auto) 12.4 % L % (15.0-45.0) Glades % (Auto) 8.5 % % (4.5-13.0) Eos % (Auto) 0.4 % L % (0.6-7.6) Baso % (Auto) 0.4 % % (0.3-1.7) Nucleat RBC Rel Count 0.0 % % (0.0-0.2) Absolute Neuts (auto) 4.25 10^3/uL 10^3/uL (1.70-6.50) Absolute Lymphs (auto) 0.68 10^3/uL L 10^3/uL (1.00-3.00) Absolute Monos (auto) 0.47 10^3/uL 10^3/uL (0.30-0.80) Absolute Eos (auto) 0.02 10^3/uL L 10^3/uL (0.03-0.40) Absolute Basos (auto) 0.02 10^3/uL 10^3/uL (0.02-0.10) Absolute Nucleated RBC 0.00 10^3/uL 10^3/uL (0-0.01) Immature Gran % 1.1 % % (0.0-1.1) Immature Gran # 0.06 10^3/uL 10^3/uL (0.00-0.10) PT INR APTT Sodium Potassium Chloride Carbon Dioxide Anion Gap BUN Creatinine Estimated GFR Glucose Calcium Nasal Influenza A PCR Nasal Influenza B PCR Departure - Departure Disposition: Home, Routine, Self-Care Clinical Impression: Fever, Medication reaction Condition: Good Instructions: Fever in Adults (ED) Additional Instructions: Read and follow provided instructions. You will be taken directly to the MRI suite for the MRI of your brain. Follow-up with your oncologist early next week for re-evaluation. Take your medication as prescribed. Return to the emergency department for unusually high fever or other serious concerns. Referrals: NONE *PRIMARY CARE P,. [Primary Care Provider] - As per Instructions
[2017-09-10 15:40] LABS: PROTIME(PATIENT) 13.4 SEC (12.0-15.0)
[2017-09-10] MEDS ORDERED: GADOBUTROL 10 ML VIAL IVP ONE (15:55)
== END 2017-09-10 17:51 | disposition home or self-care (01) ==
DX: R50.2 Drug induced fever (principal); T45.1X5A Adverse effect of antineoplastic and immunosuppressive drugs, initial encounter; Z85.828 Personal history of other malignant neoplasm of skin; Z87.891 Personal history of nicotine dependence
CPT/HCPCS: A9585